=== PATIENT | male | born 1960 | race Caucasian/White ===

== ENCOUNTER 2016-12-03 13:28 | Emergency (ER) | payer OTHER ==
[~2016-12-03] VITALS: Ht 180.3 cm; Wt 90.7 kg
[~2016-12-03 13:28] MED LIST: CUTIVATE0.05% TOP; GABAPENTIN TAB600 MG PO; GABAPENTIN300 MG PO; HYDROCORTISONE120 GM; KETOROLAC10 MG PO; LIORESAL 10MG T10 MG PO; LITHIUM CARBON450 MG PO; NEURONTIN300 MG PO; NYSTOP100000 U/G TOP; PERMETHRIN5% TOP; PROAIR HFA8.5 GM INH; PROMETHAZI6.25 MG/3 PO; TRAMADOL50 MG PO; ULTRAM(MONOGRAP50 MG PO; VISTARIL50 MG PO
--- NOTE | 2016-12-03 13:58 | ED PSYCHIATRIC COMPLAINT ---
History of Present Illness General Chief Complaint: Psychiatric Related Complaint Stated Complaint: SI/XANAX/ Source: patient, old records Exam Limitations: no limitations Vital Signs & Intake/Output Vital Signs & Intake/Output Vital Signs Date Time Temp Pulse Resp B/P Pulse O2 O2 Flow FiO2 Ox Delivery Rate 12/03 1817 98.2 85 18 125/80 98 Room Air Room Air 12/03 1659 98.1 84 18 128/82 97 Room Air 12/03 1438 97.2 97 18 129/92 100 Room Air 12/03 1341 Room Air Allergies Coded Allergies: NO KNOWN ALLERGIES (01/15/16) Reconcile Medications Albuterol Sulfate (Proair Hfa) 90 MCG HFA.AER.AD 2 PUF INH Q4-6 PRN PRN SHORTNESS OF BREATH (Reported) Aripiprazole 5 MG TABLET 1 TAB PO QPM MENTAL HEALTH (Reported) Diclofenac Sodium (Voltaren) 1 % GEL..GRAM. 1 GM TOP 4 TIMES/DAY PAIN ( Reported) apply to affected area(s) Dicyclomine HCl 20 MG TABLET 1 TAB PO BID ANTIBIOTIC, INFECTION (Reported) Dicyclomine HCl 10 MG CAPSULE 0.5 TAB PO BID GI (Reported) Docusate Sodium (Stool Softener) 100 MG CAPSULE 1 CAP PO DAILY GI (Reported) Duloxetine HCl 20 MG CAPSULE.DR 1 CAP PO BID MENTAL HEALTH (Reported) Gabapentin (Neurontin) 800 MG TABLET 1 TAB PO 4 TIMES/DAY MENTAL HEALTH ( Reported) [place] Carbonate ([place] Carbonate ER) 450 MG TABLET.ER 1 TAB PO BID MENTAL HEALTH (Reported) Triage Note: 56 Y/O MALE BIBA FROM HOME FOR EVAL OF SI ATTEMPT LAST NIGHT. PT ARRIVES ALERT AND ORIENTED X 4, TEARFUL IN CONVERSATION. STATES HE CALLED THE AMBULANCE TODAY "BECAUSE I TRIED TO HURT MYSELF LAST NIGHT .. I BOUGHT XANAX AND DRANK AND DID CRACK. LAMBERTO ALSO BEEN TAKING 8000MG GABAPENTIN BECAUSE I WANT TO HURT MYSELF". PT STATES HE WAS SOBER FROM ETOH FOR 2 MONTHS AND FROM "CRACK" SINCE AUGUST BUT RELAPSED LAST NIGHT. REQUESTING HELP WITH DETOX WELL STATING "I WAS SET UP TO GO TO A SOBER HOUSE BUT I DIDNT CALL THEM BACK BECAUSE I DIDNT HAVE THE MONEY". AT PRESENT, PT CONTINUES TO ENDORSE SI. DENIES HI. CALM, COOPERATIVE AND POLITE WITH STAFF. SECURITY CALLED FOR WANDING SITTER GETTING PT SETTLED INTO ROOM PT ON PEER BY BRYANT OFFICER LOBO Triage Nurses Notes Reviewed? yes Onset: Abrupt Duration: week(s):, constant, continues in ED Timing: recent history HPI: 56-year-old male comes into the emergency room very emotional and crying. He reports that his male roommate who he is in love with moved out 3-4 weeks ago. He reports that he has been very depressed and does not want to live anymore. He is been using crack cocaine and drinking alcohol again. Patient reports that he took 15-25 Xanax over the last 24 hours that her 1 mg tablets. He also reports that he is hearing voices in the apartment. He'll get phone calls with people telling him different things. Patient is very depressed and crying in the room while talking. History of previous substance abuse. (RUTH LINARES) Past History Travel History Traveled to [place] past 21 day No Medical History Any Pertinent Medical History? see below for history Neurological: NONE EENT: NONE Cardiovascular: hypertension Respiratory: COPD Gastrointestinal: NONE Hepatic: NONE Renal: NONE Musculoskeletal: degen joint disease Psychiatric: anxiety, bipolar disease, depression, schizophrenia Endocrine: NONE Blood Disorders: NONE Cancer(s): NONE DIRECTOR MOBILE/Reproductive: NONE History of MRSA: No History of VRE: No History of CDIFF: No Surgical History Surgical History: non-contributory Psychosocial History Who do you live with Patient/Self What is your primary language Chadian Tobacco Use: Current Daily Use Daily Tobacco Use Amount/Type: => 5 Cigarettes daily Family History Hx Contributory? No (RUTH LINARES) Review of Systems Review of Systems Constitutional: Reports: no symptoms. EENTM: Reports: no symptoms. Respiratory: Reports: no symptoms. Cardiovascular: Reports: no symptoms. GI: Reports: no symptoms. Genitourinary: Reports: no symptoms. Musculoskeletal: Reports: no symptoms. Skin: Reports: no symptoms. Neurological/Psychological: Reports: see HPI. Hematologic/Endocrine: Reports: no symptoms. Immunologic/Allergic: Reports: no symptoms. All Other Systems: Reviewed and Negative (RUTH LINARES) Physical Exam Physical Exam General Appearance: well developed/nourished, alert, awake Head: atraumatic Eyes: Bilateral: normal appearance, EOMI. Ears, Nose, Throat: normal ENT inspection, hearing grossly normal Neck: normal inspection Respiratory: no respiratory distress Extremities: normal range of motion Neurological/Psychiatric: awake, depressed affect Appearance/Memory/Insight: disheveled, impaired insight Behavoir/Eye Contact/Speech: cooperative Thoughts/Hallucinations: auditory hallucinations Skin: intact, normal color, warm/dry SAD PERSONS SAD PERSONS Response Value Male Sex? yes 1 Age <19 or >45 years? yes 1 Depression/Hopelessness? yes 2 Excessive Ethanol/Drug Use? yes 1 Rational Thinking Loss? yes 2 Single//? yes 1 Social Support? has no support 1 Total 9 SAD PERSONS Done? yes (YONATAN MANSFIELD,RUTH) Progress Differential Diagnosis: dementia, drug intoxication, drug overdose, drug withdrawal, electrolyte abnormality, encephalitis, hypoglycemia, hypothyroidism, IC hem/mass/tumor, meningitis, depression, anxiety, bipolar, borderline personality, Plan of Care: Orders Procedure Date/time Status Regular Diet 12/03 D Active Continuous Observation Monitor 12/03 1458 Active ED CRISIS PSYCH CONSULT 12/03 1356 Active URINE DRUGS OF ABUSE 12/03 1331 Complete ETHANOL 12/03 1331 Complete COMPREHENSIVE METABOLIC PANEL 12/03 1331 Complete CBC WITHOUT DIFFERENTIAL 12/03 1331 Complete Laboratory Tests 12/03/16 1403: Serum Alcohol < 10.0 12/03/16 1403: Anion Gap 11, Estimated GFR > 60, BUN/Creatinine Ratio 7.5, Glucose 91, Calcium 10.0, Total Bilirubin 0.5, AST 36, ALT 38, Alkaline Phosphatase 85, Total Protein 7.5, Albumin 4.4, Globulin 3.1, Albumin/Globulin Ratio 1.4, CBC w Diff NO MAN DIFF REQ, RBC 4.94, MCV 91.1, MCH 30.3, RDW 13.2, MPV 7.9, Gran % 53.2, Lymphocytes % 33.0, Monocytes % 8.9, Eosinophils % 4.8, Basophils % 0.1, Absolute Granulocytes 4.2, Absolute Lymphocytes 2.6, Absolute Monocytes 0.7 H, Absolute Eosinophils 0.4, Absolute Basophils 0, PUBS MCHC 33.3, Urine Opiates Screen < 100.00, Methadone Screen < 40, Barbiturate Screen < 60, Ur Phencyclidine Scrn < 6.00, Amphetamines Screen < 100, U Benzodiazepines Scrn > 800 H, Urine Cocaine Screen > 1000 H, Urine Cannabis Screen < 5.00 Comments: 12/03/2016 5:37:25 PM Patient was seen and cleared by crisis to go home. Patient will be following up at a sober house crisis. (RUTH LINARES) Departure Departure Disposition: HOME OR SELF CARE Condition: Stable Clinical Impression Primary Impression: Mood disorder Referrals: KRYSTAL VALENCIA (PCP/Family) Additional Instructions: Follow-up as directed by crisis. Return if any other concerns worsening symptoms. Please go over all results of today's visit with your primary care doctor. Contact your primary care doctor to let them know you were here in the emergency room. There may be nonspecific findings which may not be related to your visit today here in the emergency room but may require further evaluation and chronic monitoring by your primary care doctor. If you had a laceration today the chance of foreign body always remains. You should follow-up with your primary care doctor for recheck in 3-5 days for a wound check. If you had an x-ray done there is a chance that a fracture could have been missed on initial read and you should follow-up with your primary care doctor for repeat x-rays if symptoms persist. If your blood pressure was elevated here in the emergency room please have rechecked by her primary care doctor within the next 48 hours by your primary care doctor. If you were prescribed a narcotic here in the emergency room or any type of controlled substances you're not allowed to drive while taking this medication or operate any type of heavy machinery. Narcotics can make you feel lightheaded dizziness nausea and can cause constipation. You may need to molded goods spot picker a stool softener. Thank you for choosing [facility] emergency room. Please return to the emergency room immediately if you have any other concerns worsening of symptoms. Departure Forms: Customer Survey General Discharge Information (RUTH LINARES) PA/BREAKER BOSS Co-Sign Statement Statement: ED Attending supervision documentation- [] I saw and evaluated the patient. I have also reviewed all the pertinent lab results and diagnostic results. I agree with the findings and the plan of care as documented in the PA's/BREAKER BOSS's documentation. x I have reviewed the ED Record and agree with the PA's/BREAKER BOSS's documentation. [] Additions or exceptions (if any) to the PAs/BREAKER BOSS's note and plan are summarized below: [] (GREYSON OLSON,ANTHONY)
[2016-12-03] MEDS ORDERED: DULOXETINE HCL20 MG PO (14:14)
[2016-12-03] MEDS ORDERED: DICYCLOMINE HCL20 M1 PO (14:14)
[2016-12-03] MEDS ORDERED: DICYCLOMINE HCL10 M1 PO (14:15)
[2016-12-03] MEDS ORDERED: LITHIUM CARBON450 M1 PO (14:16)
[2016-12-03] MEDS ORDERED: STOOL SOFTENER100 M3 PO (14:16)
[2016-12-03] MEDS ORDERED: ARIPIPRAZOLE5 M1 PO (14:17)
[2016-12-03] MEDS ORDERED: NEURONTIN800 M2 PO (14:17)
[2016-12-03] MEDS ORDERED: VOLTAREN100 GM TOP (14:18)
[2016-12-03 14:25] LABS: ABSOLUTE BASOPHIL COUNT 0 /CUMM (0.0-0.2); ABSOLUTE EOSINOPHIL COUNT 0.4 /CUMM (0.0-0.7); ABSOLUTE GRANULOCYTE CT 4.2 /CUMM (1.4-6.5); ABSOLUTE LYMPH COUNT 2.6 /CUMM (1.2-3.4); ABSOLUTE MONOCYTE COUNT 0.7 /CUMM (0.10-0.60); BASOPHIL % 0.1 % (0.0-2.0); EOSINOPHIL % 4.8 % (0-5); GRANULOCYTE % 53.2 % (42.2-75.2); MEAN CORPUSCULAR HGB 30.3 PG (27.0-31.0); MEAN CORPUSCULAR HGB CONC 33.3 G/DL (33.0-37.0); MEAN CORPUSCULAR VOLUME 91.1 FL (80.0-94.0); MEAN PLATELET VOLUME 7.9 FL (7.4-10.4); PLATELET COUNT 221 /CUMM (130-400); RBC DISTRIBUTION WIDTH 13.2 % (11.5-14.5); RED BLOOD CELL CT 4.94 /CUMM (4.70-6.10); WHITE BLOOD CELL COUNT 7.8 /CUMM (4.8-10.8)
--- NOTE | 2016-12-03 17:09 | ED PSYCH CRISIS CONSULTATION ---
Crisis Consult Basic Assessment Date of Consult: 12/03/16 Responsible Person/Accompanied By: darion Insurance Authorization: Insurance #1: Insurance name: [employer] Phone number: Policy number: [id number] Group number: Authorization number: ED Provider: Patient's ED Provider: RUTH LINARES Primary Care Physician: Patient's PCP: KRYSTAL VALENCIA PCP's Current Psychiatrist: Manoj Chief Complaint: Psychiatric Related Complaint Patient's Quote: "I was supposed to go to a sober house" Present Illness: Pt is a 56 year old male, upon evaluation pt states I was "being very selfish earlier, and got upset that I loved someone who didn't love me back", I have ahd some time to think while Im here, and instead of feeling bad for"myself, and going zuly zuly zuly poor me, I want to do something for myself, so he can see that I can still be friends" pt then explained he roommate and person he cared a great deal for just moved out because his Father and he had to manage some things with his family and was overwhelmed. Pt states this also caused him to relapse, pt states "on xanax", tox screen positive for benzos and cocaine. Pt states this just happened a day ago, pt reports he attends therapy and goes to AA meetings. Pt spoke to Luis from [facility] and he will make arrangements to get into one of his sober houses. I confirmed with Luis, and he stated he would help Hernán out and that there would be abed for him. Pt denies si/hi/ah/vh during evaluation, he said "I have hope and a place to go, so I don' t want to hurt myself", and then pt reiterated he has a lot fo sober supports and wants to be clean. Pt reports he is seen at [facility] and [facility]. Patient's Address: [address] [place] [address] [place] [address] Other Phone Number: Who Do You Live With? Patient/Self Family/Informants Interviewed: Spoke with [facility], he said they had a bed for him [phone]. They will continue to work with him until he is admitted. Allergies - Coded Allergies: NO KNOWN ALLERGIES (01/15/16) Current Medications - Scheduled Medications Aripiprazole 5 MG TABLET 1 TAB PO QPM MENTAL HEALTH #21 (Reported) Entered as Reported by SUSANNA SQUIRES on 12/03/16 1417 Diclofenac Sodium (Voltaren) 1 % GEL..GRAM. 1 GM TOP 4 TIMES/DAY PAIN #300 ( Reported) Entered as Reported by SUSANNA SQUIRES on 12/03/16 1418 Dicyclomine HCl 20 MG TABLET 1 TAB PO BID ANTIBIOTIC, INFECTION #30 (Reported ) Entered as Reported by SUSANNA SQUIRES on 12/03/16 1414 Dicyclomine HCl 10 MG CAPSULE 0.5 TAB PO BID GI #60 (Reported) Entered as Reported by SUSANNA SQUIRES on 12/03/16 1415 Docusate Sodium (Stool Softener) 100 MG CAPSULE 1 CAP PO DAILY GI (Reported) Entered as Reported by SUSANNA SQUIRES on 12/03/16 1416 Duloxetine HCl 20 MG CAPSULE.DR 1 CAP PO BID MENTAL HEALTH #60 (Reported) Entered as Reported by SUSANNA SQUIRES on 12/03/16 1414 Gabapentin (Neurontin) 800 MG TABLET 1 TAB PO 4 TIMES/DAY MENTAL HEALTH #90 ( Reported) Entered as Reported by SUSANNA SQUIRES on 12/03/16 1417 [place] Carbonate ([place] Carbonate ER) 450 MG TABLET.ER 1 TAB PO BID MENTAL HEALTH #30 (Reported) Entered as Reported by SUSANNA SQUIRES on 12/03/16 1416 Scheduled PRN Medications Albuterol Sulfate (Proair Hfa) 90 MCG HFA.AER.AD 2 PUF INH Q4-6 PRN PRN SHORTNESS OF BREATH (Reported) Entered as Reported by STEPHANIE CHAVARRIA on 06/25/15 4728 Laboratory Results: Laboratory Tests 12/03/16 1403: Serum Alcohol < 10.0 12/03/16 1403: Anion Gap 11, Estimated GFR > 60, BUN/Creatinine Ratio 7.5, Glucose 91, Calcium 10.0, Total Bilirubin 0.5, AST 36, ALT 38, Alkaline Phosphatase 85, Total Protein 7.5, Albumin 4.4, Globulin 3.1, Albumin/Globulin Ratio 1.4, CBC w Diff NO MAN DIFF REQ, RBC 4.94, MCV 91.1, MCH 30.3, RDW 13.2, MPV 7.9, Gran % 53.2, Lymphocytes % 33.0, Monocytes % 8.9, Eosinophils % 4.8, Basophils % 0.1, Absolute Granulocytes 4.2, Absolute Lymphocytes 2.6, Absolute Monocytes 0.7 H, Absolute Eosinophils 0.4, Absolute Basophils 0, PUBS MCHC 33.3, Urine Opiates Screen < 100.00, Methadone Screen < 40, Barbiturate Screen < 60, Ur Phencyclidine Scrn < 6.00, Amphetamines Screen < 100, U Benzodiazepines Scrn > 800 H, Urine Cocaine Screen > 1000 H, Urine Cannabis Screen < 5.00 Past History Past Medical History Neurological: NONE EENT: NONE Cardiovascular: hypertension Respiratory: COPD Gastrointestinal: NONE Hepatic: NONE Renal: NONE Musculoskeletal: degen joint disease Psychiatric: anxiety, bipolar disease, depression, schizophrenia Endocrine: NONE Blood Disorders: NONE Cancer(s): NONE 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 and personal [employer] Reason for Treatment mood relapse prevention Dates of Treatment 2014 and currently Response to Treatment unknown, pt reports soberity since Aug 2016 Diagnosis by History: Bipolar Disorder, Alcohol Dependence, poly-substance, schizo-affective, Bipolar with psychosis, panic disorder Substance Use/Abuse History Drug Use/Abuse Substances Used/Abused Yes Substance Used/Abused Benzodiazepines First Use unknown Last Used today How much used/taken unknown How often sober since aug For how long on and off for years Route of use oral Substance Abuse Treatment Substance Abuse Treatment Past Substance Abuse TX Yes Inpatient Treatment Yes Outpatient Treatment Yes Response to Treatment unknown Current Mental Status Mental Status Orientation: Person, Place, Situation Affect: Anxious, Manic, Variable Speech: Hyper-verbal, Loud Neuro-vegetative: Energy Increased, Sleep Disturbance Appearance Appearance- Dress/Hygiene: in hospital attire Behaviors Thought Process: WNL Thought Content: Entitled Memory: WNL Insight: Fair SI/HI Risk Assessment Past Suicidal Ideation/Attempts Yes Current Suicidal Ideation/Att No Past Homicidal Ideation/Att: No Current Homicidal Ideation/Attempts No Degree of Intent: Self Destructive/No Risk Factors: high anxiety/distress, SA/MH hospitalized, substance abuse, male Lethality Ratin PTSD Checklist PTSD Done? 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 Thomas, pt presnted denying si/hi/ah/vh. Made contact with a sober house and arrangements for intake. Pt to continue to work with outpatient providers. Referrals KRYSTAL VALENCIA (PCP/Family)
[2016-12-03 18:17] VITALS: BP 125/80
== END 2016-12-03 18:17 ==
LOC: ERH 13:28
PROVIDERS: Physician Assistant Medical
DX: F39 Unspecified mood [affective] disorder (principal); F10.10 Alcohol abuse, uncomplicated; F14.10 Cocaine abuse, uncomplicated
CPT/HCPCS: 80307; G0463; G0480

== ENCOUNTER 2016-12-05 18:45 | Inpatient (IN) | payer OTHER ==
[~2016-12-05] VITALS: Ht 175.3 cm; Wt 92.5 kg
[~2016-12-05 18:45] MED LIST changes: +ARIPIPRAZOLE5 M1 PO; +DICYCLOMINE HCL10 M1 PO; +DICYCLOMINE HCL20 M1 PO; +DULOXETINE HCL20 MG PO; +LITHIUM CARBON450 M1 PO; +NEURONTIN800 M2 PO; +STOOL SOFTENER100 M3 PO; +VOLTAREN100 GM TOP
--- NOTE | 2016-12-05 18:48 | NUR ---
PT STATES +SI, STATES HE TOOK 7000MG OF GABAPENTIN INSTEAD OF THE USUAL 2100MG WITH THE INTENT TO HURT HIMSELF. RN NOTIFIED.
--- NOTE | 2016-12-05 18:57 | NUR ---
PT STATES HE IS FEELING SUICIDAL, REPORTS THAT HE TOOK GABAPENTIN LIKE CANDY TO TRY AND KILL HIMSELF. PT STATES HE WAS SUPPOSE TO GO TO A SOBER HOUSE. PT STATES HE NEEDS DETOX FROM BENZO'S ETOH AND CRACK. PT ADMITS TO TAKING 7000MG OF GABAPENTIN [employer]
--- NOTE | 2016-12-05 19:15 | NUR ---
PT WANDED BY SECURITY AND CHANGED INTO [facility] SCRUBS. PT AGITATED AND COMPLAINING THAT HE IS IN THE [address] REPORTING, "I FEEL LIKE I'M ON DISPLAY OUT HERE LIKE I'M AN ANIMAL AT THE [employer]OO." PT INFORMED THAT HE WILL BE MOVED TO A ROOM IN JUST A FEW MINUTES WHEN A ROOM IS AVAILABLE.
--- NOTE | 2016-12-05 19:20 | ED PSYCHIATRIC COMPLAINT ---
History of Present Illness General Chief Complaint: ETOH/Drug Related Complaint Stated Complaint: REQ ETOH DETOX, PSY EVAL Source: patient Exam Limitations: no limitations Allergies Coded Allergies: NO KNOWN ALLERGIES (01/15/16) Reconcile Medications Albuterol Sulfate (Proair Hfa) 90 MCG HFA.AER.AD 2 PUF INH Q4-6 PRN PRN SHORTNESS OF BREATH (Reported) Aripiprazole 5 MG TABLET 1 TAB PO QPM MENTAL HEALTH (Reported) Diclofenac Sodium (Voltaren) 1 % GEL..GRAM. 1 GM TOP 4 TIMES/DAY PAIN ( Reported) apply to affected area(s) Dicyclomine HCl 20 MG TABLET 1 TAB PO BID ANTIBIOTIC, INFECTION (Reported) Dicyclomine HCl 10 MG CAPSULE 0.5 TAB PO BID GI (Reported) Docusate Sodium (Stool Softener) 100 MG CAPSULE 1 CAP PO DAILY GI (Reported) Duloxetine HCl 20 MG CAPSULE.DR 1 CAP PO BID MENTAL HEALTH (Reported) Fluticasone/Salmeterol (Advair 250-50 Diskus) 250 MCG-50 MCG/DOSE BLST.W.DEV 2 PUF INH BID COPD (Reported) Gabapentin (Neurontin) 800 MG TABLET 1 TAB PO 4 TIMES/DAY MENTAL HEALTH ( Reported) Vadito Carbonate (Vadito Carbonate ER) 450 MG TABLET.ER 1 TAB PO BID MENTAL HEALTH (Reported) Sodium Fluoride (Sf 5000 Plus) 1.1 % CREAM..G. 1 TOMASA PO BID TEETH (Reported) Triage Note: PT STATES HE IS FEELING SUICIDAL, REPORTS THAT HE TOOK GABAPENTIN LIKE CANDY TO TRY AND KILL HIMSELF. PT STATES HE WAS SUPPOSE TO GO TO A SOBER HOUSE. PT STATES HE NEEDS DETOX FROM BENZO'S ETOH AND CRACK. 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 yes Onset: Abrupt Duration: 1 PM Timing: single episode today Severity: severe Associated Symptoms: suicidal ideation, DEPRESSED, ANXIOUS HPI: 56-year-old male presents to the ER after overdosing on gabapentin today at 1 PM. He states he took about 7000 mg. Usually takes 2400 mg per day. His plan was to go to sleep and never wake up. He states for the past month after) left the house and that he was in his been feeling depressed and suicidal. He is having hallucinations feels alone at night and hears voices. He admits to being a previous alcoholic and states that he drinks but is not dependent on alcohol. Since his friend let his been abusing cocaine almost daily. Denies any chest pain or shortness of breath. He states that he wants to come in for detox and to get back into a sober house. He states he's never attempted to take his life in the past before. (HENNY BECKWITH MD) Vital Signs & Intake/Output Vital Signs & Intake/Output Vital Signs Date Time Temp Pulse Resp B/P Pulse O2 O2 Flow FiO2 Ox Delivery Rate 12/06 0736 98.1 67 18 126/70 99 12/06 0705 96.8 64 18 138/83 96 Room Air 12/06 0643 97.3 72 16 132/77 94 Room Air 12/06 0340 97.3 72 16 130/70 94 Room Air 12/06 0139 96.8 70 16 138/72 97 Room Air 12/05 2300 96.8 75 16 134/70 12/05 2238 94.6 75 16 134/70 97 Room Air 12/05 2218 96.9 80 20 144/76 97 Room Air 12/05 2108 Room Air 12/05 1857 97.7 94 16 130/87 97 Room Air ED Intake and Output 12/06 0000 12/05 1200 Intake Total Output Total Balance Patient 200 lb Weight Past History Travel History Traveled to [place] past 21 day No Medical History Any Pertinent Medical History? 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 No (HENNY BECKWITH MD) Review of Systems Review of Systems Constitutional: Denies: chills, fever. EENTM: Reports: no symptoms. Respiratory: Denies: cough, short of breath. Cardiovascular: Denies: chest pain, peripheral edema. GI: Reports: no symptoms. Genitourinary: Reports: no symptoms. Musculoskeletal: Reports: no symptoms. Skin: Reports: no symptoms. Neurological/Psychological: Reports: anxiety, depressed, emotional problems, tremors. Hematologic/Endocrine: Denies: bruising, bleeding, polyuria, polydipsia. Immunologic/Allergic: Reports: no symptoms. All Other Systems: Reviewed and Negative (HENNY BECKWITH MD) Physical Exam Physical Exam General Appearance: well developed/nourished, alert, awake, mild distress Head: atraumatic Eyes: Bilateral: PERRL, EOMI. Ears, Nose, Throat: normal pharynx, normal ENT inspection, hearing grossly normal Neck: normal inspection, supple Respiratory: normal breath sounds Cardiovascular: regular rate/rhythm Gastrointestinal: soft, non-tender Extremities: normal range of motion Neurological/Psychiatric: awake, alert, anxious, TEARFUL Appearance/Memory/Insight: disheveled, impaired insight Behavoir/Eye Contact/Speech: cooperative Skin: intact, normal color, warm/dry (HENNY BECKWITH MD) Physical Exam Thoughts/Hallucinations: no apparent hallucination SAD PERSONS SAD PERSONS Response Value Male Sex? yes 1 Age <19 or >45 years? yes 1 Depression/Hopelessness? yes 2 Previous Attempts/Psych Care yes 1 Excessive Ethanol/Drug Use? yes 1 Rational Thinking Loss? yes 2 Single//? yes 1 Organized/Serious Attempt yes 2 Stated Future Intent? yes 2 Total 13 SAD PERSONS Done? yes (ANTHONY RUBI MD) Progress Differential Diagnosis: SUICIDE ATTEMPT, SEVERE DEPRESSION, ANXIETY, COCAINE ABUSE Hand-Off Endorsed To: ANTHONY RUBI MD Endorsed Time: 0700 Pending: consult (CRISIS BED PLACEMENT) (HENNY BECKWITH MD) Differential Diagnosis: dementia, drug intoxication, drug overdose, drug withdrawal, electrolyte abnormality, hypoglycemia Plan of Care: Orders Procedure Date/time Status Regular Diet 12/06 B Active Continuous Observation Monitor 12/06 1900 Active Continuous Observation Monitor 12/06 1500 Active Admit to inpatient psych 12/06 1103 Active Continuous Observation Monitor 12/06 1100 Active Continuous Observation Monitor 12/06 0700 Active CIWA 12/05 2300 Active Intake & Output 12/05 2010 Active LITHIUM 12/05 1950 Complete ED CRISIS PSYCH CONSULT 12/05 1931 Active Continuous Observation Monitor 12/05 192 Active URINE DRUGS OF ABUSE 12/05 1920 Complete ACETOMINOPHEN 12/05 1920 Complete SALICYLATE 12/05 1920 Complete MAGNESIUM 12/05 1920 Complete ETHANOL 12/05 1920 Complete COMPREHENSIVE METABOLIC PANEL 12/05 1920 Complete CBC WITHOUT DIFFERENTIAL 12/05 1920 Complete EKG 12/05 1920 Active Current Medications Sig/Mo Start time Last Medication Dose Stop Time Status Admin Aripiprazole 5 MG QPM 12/06 2200 AC (Abilify) Dicyclomine HCl 10 MG BID 12/06 2200 AC (Bentyl) Diclofenac Sodium 1 TOMASA 4 TIMES/DAY 12/06 1004 AC (Voltaren 1% Gel) Albuterol Sulfate 2 PUF Q4-6 PRN PRN 12/06 1000 AC (Ventolin) Laboratory Tests 12/05/161957: Urine Opiates Screen < 100.00, Methadone Screen < 40, Barbiturate Screen < 60, Ur Phencyclidine Scrn < 6.00, Amphetamines Screen 183, U Benzodiazepines Scrn 536 H, Urine Cocaine Screen > 1000 H, Urine Cannabis Screen < 5.00 12/05/16 1950: Anion Gap 9, Estimated GFR > 60, BUN/Creatinine Ratio 10.0, Glucose 84, Calcium 9.8, Magnesium 2.0, Total Bilirubin 0.4, AST 32, ALT 37, Alkaline Phosphatase 76 , Total Protein 7.1, Albumin 4.1, Globulin 3.0, Albumin/Globulin Ratio 1.4, CBC w Diff NO MAN DIFF REQ, RBC 4.70, MCV 90.8, MCH 30.5, RDW 12.8, MPV 7.8, Gran % 56.8, Lymphocytes % 31.4, Monocytes % 7.6, Eosinophils % 3.8, Basophils % 0.4, Absolute Granulocytes 4.2, Absolute Lymphocytes 2.3, Absolute Monocytes 0.6, Absolute Eosinophils 0.3, Absolute Basophils 0, PUBS MCHC 33.5, Salicylates < 1.0, Acetaminophen < 10.0 L, [place] 0.4 L, Serum Alcohol < 10.0 12/05/161929: Vadito Cancelled PERSONAL GROWTH COUNSELLING RUDI REDDY (AMENA OLSON,HENNY) Comments: To be admitted to [facility] (GREYSON OLSON,ANTHONY) Departure Departure Disposition: STILL A PATIENT Condition: Stable Clinical Impression Primary Impression: Suicide attempt Secondary Impressions: Cocaine abuse, Gabapentin overdose Referrals: KRYSTAL VALENCIA (PCP/Family) Departure Forms: Customer Survey General Discharge Information (AMENA OLSON,HENNY) Departure Time of Disposition: 1238 Psych Admission Note Psychiatric Admission: I have seen and evaluated MAURY MARTINEZ. I have also reviewed all the pertinent lab results and diagnostic results. MAURY MARTINEZ will be admitted to our inpatient Psychiatric unit for treatment and care. (GREYSON OLSON,ANTHONY)
--- NOTE | 2016-12-05 19:36 | NUR ---
PT REPORTS HE WAS BROUGHT TO [facility] BY A FRIEND FROM . PT REPORTS +SI AND THAT HE TOOK "A LOT" OF GABAPENTIN. PT REPORTS POSSIBLY UP TO 7000MG, STARTING AT 1PM, THEN TAKING MORE AFTER HE WOKE UP FROM A NAP. PT REPORTS FEELING "WOOZY" NOW, DENIES NAUSEA, STATES HE IS HUNGRY. PT REPORTS DAILY SI THOUGHTS FOR WEEKS. PT REPORTS ONE PRIOR SUICIDE ATTEMPT VIA KLONOPIN OVERSODE OF 16MG IN ID STATE. PT REPORTS +AH AT NIGHT WHILE HOME ALONE, STATES HE "HEARS PEOPLE CALLING HIS NAME". DR BECKWITH AT BEDSIDE
--- NOTE | 2016-12-05 19:40 | NUR ---
PT REPORTS MED HX OF COPD, NECK PAIN, GROIN NERVE DAMAGE PAIN AND BIPOLAR DISORDER. PT STATES HE IS ON LITHIUM, BUT HAS NOT BEEN COMPLIANT IN THE RECENT PAST. PT STATES HE ALSO TAKES ABILIFY. PT REPORTS POOR SLEEP. PT STATES HE DRANK 1 BEER THIS PAST WEEKEND, SMOKED CRACK YESTERDAY AND TOOK BENZOS YESTERDAY.
--- NOTE | 2016-12-05 19:50 | NUR ---
EKG AND BLOOD DONE (BLUE,SST,LAV,MOJICA)
--- NOTE | 2016-12-05 20:10 | NUR ---
URINE TRIO SENT TO LAB
[2016-12-05 20:15] LABS: LITHIUM 0.4 mmol/L (0.6-1.2)
[2016-12-05 20:18] LABS: ABSOLUTE BASOPHIL COUNT 0 /CUMM (0.0-0.2); ABSOLUTE EOSINOPHIL COUNT 0.3 /CUMM (0.0-0.7); ABSOLUTE GRANULOCYTE CT 4.2 /CUMM (1.4-6.5); ABSOLUTE LYMPH COUNT 2.3 /CUMM (1.2-3.4); ABSOLUTE MONOCYTE COUNT 0.6 /CUMM (0.10-0.60); BASOPHIL % 0.4 % (0.0-2.0); EOSINOPHIL % 3.8 % (0-5); GRANULOCYTE % 56.8 % (42.2-75.2); HEMATOCRIT 42.7 % (42-52); MEAN CORPUSCULAR HGB 30.5 PG (27.0-31.0); MEAN CORPUSCULAR HGB CONC 33.5 G/DL (33.0-37.0); MEAN CORPUSCULAR VOLUME 90.8 FL (80.0-94.0); MEAN PLATELET VOLUME 7.8 FL (7.4-10.4); PLATELET COUNT 216 /CUMM (130-400); RBC DISTRIBUTION WIDTH 12.8 % (11.5-14.5); WHITE BLOOD CELL COUNT 7.4 /CUMM (4.8-10.8)
--- NOTE | 2016-12-05 20:42 | NUR ---
PT HAS 4 BELONGINGS BAGS IN CLOSET, 1 VALUABLES BAG IN ER SAFE AND 1 BAG OF MEDICATIONS AT PHARMACY.
[2016-12-05] MEDS ORDERED: ADVAIR 250-501 EACH INH (20:43)
[2016-12-05] MEDS ORDERED: SF 5000 PLUS51 GM PO (20:44)
--- NOTE | 2016-12-05 21:07 | NUR ---
PT SITTING ON BED IN ROOM 15. PT TEARFUL AND TALKING ABOUT HIS PROBLEMS WITH THIS RN. PT IS REQUESTING SOMETHING TO HELP HIM SLEEP.
--- NOTE | 2016-12-05 21:41 | NUR ---
CRISIS AT BEDSIDE
--- NOTE | 2016-12-05 22:08 | NUR ---
PT MEDICATED WITH BENADRYL 50MG PO. PT CALM AND COOPERATIVE. SITTER AT DOOR FOR SAFETY.
--- NOTE | 2016-12-05 22:19 | NUR ---
Pt has signed a voluntary admission form for admission to [facility] vs bed search whichever takes place first in the morning.
--- NOTE | 2016-12-05 22:38 | NUR ---
PT PROVIDED WITH BOXED LUNCH. PT CALM AND COOPERATIVE. SITTER AT DOORWAY FOR PASHA.
--- NOTE | 2016-12-05 22:45 | ED PSYCH CRISIS CONSULTATION ---
Crisis Consult Basic Assessment Date of Consult: 12/05/16 Responsible Person/Accompanied By: self Insurance Authorization: Insurance #1: Insurance name: F[employer]AD BL[employer] Phone number: Policy number: [id number] Group number: Authorization number: ED Provider: Patient's ED Provider: AMENA OLSON,HENNY Primary Care Physician: Patient's PCP: KRYSTAL VALENCIA PCP's Current Psychiatrist: none currently/had been seen at [facility] Chief Complaint: ETOH/Drug Related Complaint Patient's Quote: Fernanda been daily suicidal. today i overdosed on my gabapentin. Present Illness: Pt is a 56 yo male presenting at [place] ED this evening with report of suicide attempt today of intentional overdose of 7000mg of gabapentin. Pt had been seen at [place] ED this weekend for attempted overdose of xanax and crack cocaine. Pt has a hx of bipolar d/o; alcohol and cocaine abuse. Pt was admitted to [address] in [address]. Pt was previously in ut at [facility] and now is treated at [facility]. Pt reports he had 9 months sober and was doing well until friend moved out last month. Pt reports being distraught; tearful. Since friend moved out he reports daily suicidal thoughts, depression; anxiety, hearing voices, difficulty sleeping and being in fear. Pt reports being happy that he came to ED for help and "needs to begin taking care of himself". Pt wants to get stable again on medications and has been working on getting into a sober house in [place]. Pt is alert; OX3; pleasant, hyperverbal; tearful at times. He reports SI but is motivated to get help. Patient's Address: [address] [place] [address] [place] [address] Other Phone Number: Who Do You Live With? Patient/Self Family/Informants Interviewed: collateral pt brother Jorge Luis [phone] - reports being happy pt is trying to get help. Allergies - Coded Allergies: NO KNOWN ALLERGIES (01/15/16) Current Medications - Scheduled Medications Aripiprazole 5 MG TABLET 1 TAB PO QPM MENTAL HEALTH #21 (Reported) Entered as Reported by SUSANNA SQUIRES on 12/03/16 1417 Diclofenac Sodium (Voltaren) 1 % GEL..GRAM. 1 GM TOP 4 TIMES/DAY PAIN #300 ( Reported) Entered as Reported by SUSANNA SQUIRES on 12/03/161417 Last Taken: At an unknown date and time Dicyclomine HCl 20 MG TABLET 1 TAB PO BID ANTIBIOTIC, INFECTION #30 (Reported ) Entered as Reported by SUSANNA SQUIRES on 12/03/161413 Last Taken: At an unknown date and time Dicyclomine HCl 10 MG CAPSULE 0.5 TAB PO BID GI #60 (Reported) Entered as Reported by SUSANNA SQUIRES on 12/03/161414 Last Taken: At an unknown date and time Docusate Sodium (Stool Softener) 100 MG CAPSULE 1 CAP PO DAILY GI (Reported) Entered as Reported by SUSANNA SQUIRES on 12/03/161415 Last Taken: At an unknown date and time Duloxetine HCl 20 MG CAPSULE.DR 1 CAP PO BID MENTAL HEALTH #60 (Reported) Entered as Reported by SUSANNA SQUIRES on 12/03/161413 Last Taken: At an unknown date and time Fluticasone/Salmeterol (Advair 250-50 Diskus) 250 MCG-50 MCG/DOSE BLST.W.DEV 2 PUF INH BID COPD #60 (Reported) Entered as Reported by STEPHANIE CHAVARRIA on 12/05/162042 Gabapentin (Neurontin) 800 MG TABLET 1 TAB PO 4 TIMES/DAY MENTAL HEALTH #90 ( Reported) Entered as Reported by SUSANNA SQUIRES on 12/03/161416 [place] Carbonate ([place] Carbonate ER) 450 MG TABLET.ER 1 TAB PO BID MENTAL HEALTH #30 (Reported) Entered as Reported by SUSANNA SQUIRES on 12/03/16 141 Sodium Fluoride (Sf 5000 Plus) 1.1 % CREAM..G. 1 TOMASA PO BID TEETH #51 ( Reported) Entered as Reported by STEPHANIE CHAVARRIA on 12/05/162043 Scheduled PRN Medications Albuterol Sulfate (Proair Hfa) 90 MCG HFA.AER.AD 2 PUF INH Q4-6 PRN PRN SHORTNESS OF BREATH (Reported) Entered as Reported by STEPHANIE CHAVARRIA on 06/25/151757 Laboratory Results: Laboratory Tests 12/05/168: Urine Opiates Screen < 100.00, Methadone Screen < 40, Barbiturate Screen < 60, Ur Phencyclidine Scrn < 6.00, Amphetamines Screen 183, U Benzodiazepines Scrn 536 H, Urine Cocaine Screen > 1000 H, Urine Cannabis Screen < 5.00 12/05/16 1950: Anion Gap 9, Estimated GFR > 60, BUN/Creatinine Ratio 10.0, Glucose 84, Calcium 9.8, Magnesium 2.0, Total Bilirubin 0.4, AST 32, ALT 37, Alkaline Phosphatase 76 , Total Protein 7.1, Albumin 4.1, Globulin 3.0, Albumin/Globulin Ratio 1.4, CBC w Diff NO MAN DIFF REQ, RBC 4.70, MCV 90.8, MCH 30.5, RDW 12.8, MPV 7.8, Gran % 56.8, Lymphocytes % 31.4, Monocytes % 7.6, Eosinophils % 3.8, Basophils % 0.4, Absolute Granulocytes 4.2, Absolute Lymphocytes 2.3, Absolute Monocytes 0.6, Absolute Eosinophils 0.3, Absolute Basophils 0, PUBS MCHC 33.5, Salicylates < 1.0, Acetaminophen < 10.0 L, [place] 0.4 L, Serum Alcohol < 10.0 12/05/16 193: [place] Cancelled (HIEU CHOU LCSW) Past History Past Medical History Neurological: NONE EENT: NONE Cardiovascular: hypertension Respiratory: COPD Gastrointestinal: NONE Hepatic: NONE Renal: NONE Musculoskeletal: degen joint disease Psychiatric: alcohol dependence, anxiety, bipolar disease, depression, schizophrenia, COCAINE ABUSE Endocrine: NONE Blood Disorders: NONE Cancer(s): NONE 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 Physical Limitations (Interventions): Pain related to chronic back & nerve pain, degenerative disk disease Psychiatric Treatment History Psych Treatment Psychiatric Treatment Yes Inpatient Treatment Yes Outpatient Treatment Yes Location of Treatment [facility] 3x in 2014; outpt; [facility] 2016; personal [facility] Reason for Treatment hx of depression; bi-polar; drug and alcohol Response to Treatment sober for 9 months; relapsed this past weekend Diagnosis by History: Bipolar Disorder, Alcohol Dependence, poly-substance, schizo-affective, Bipolar with psychosis, panic disorder Substance Use/Abuse History Drug Use/Abuse Substances Used/Abused Yes Substance Used/Abused Crack Cocaine Last Used today How often 3x past wk Substance Abuse Treatment Substance Abuse Treatment Past Substance Abuse [place] Yes Inpatient Treatment Yes Outpatient Treatment Yes Reason for Treatment hx of etoh and crack cocaine abuse Comments: pt reports relapse of etoh and cocaine last weekend when friend moved out. (HIEU CHOU LCSW) Current Mental Status Mental Status Orientation: Person, Place, Situation Affect: Depressed, Sad Speech: Hyper-verbal Neuro-vegetative: Anhedonia, Appetite Decreased, Concentration Poor, Energy Increased, Helpless, Loss of Interest, Sleep Disturbance Appearance Appearance- Dress/Hygiene: hospital scrubs; unshaven; glassy-eyed; sitting up; good eye contact. Behaviors Thought Process: WNL Thought Content: Auditory Hallucinations Memory: WNL Insight: Fair SI/HI Risk Assessment Past Suicidal Ideation/Attempts Yes Current Suicidal Ideation/Att Yes Past Homicidal Ideation/Att: No Current Homicidal Ideation/Attempts No Degree of Intent: Thoughts/No Intent Danger To: Self Gravely Disabled: Poor Impulse Control, Poor Judgment Risk Factors: high anxiety/distress, history of suicide atmpts, SA/MH hospitalized, substance abuse, isolate/no social support, poor impulse control, lives alone, male, limited support Lethality Ratin PTSD Checklist PTSD Done? patient declined ED Management Sitter: Yes Restraints: No (HIEU CHOU LCSW) DSM5/PS Stressors/Medical Prob Diagnosis' (DSM 5, Stressors, Medical): Bipolar disorder depressive recurrent (F33.3) Cocaine Use d/o severe(F14.20) friend moved out relapse Current GAF: 25 Comments: pt reports recent relapse of cocaine and alcohol triggered by close friend moving out, pt reports increased depression; hearing voices, not sleeping; daily si; anxiety and fear. (HIEU CHOU LCSW) Departure Disposition Psych Medical Clearance Date: 12/05/16 Medically Cleared at: 2144 Time Started: 2149 Time Ended: 2229 Psychiatrist Consulted: Sav Ortiz MD Date Disposition Established: 12/05/16 Time Disposition Established: 2244 Plan for Disposition - Modality: Bed Search Rationale for Disposition: Pt reported suicide attempt on sunday and again today. attempted overdose of gabapentin. pt in need of inpatient psychiatric admission. Type of IP Admission: Voluntary Referrals KRYSTAL VALENCIA (PCP/Family) (EFFIE PARDO,HIEU) Disposition Psych Medical Clearance Date: 12/06/16 Date Disposition Established: 12/06/16 Time Disposition Established: 829 Plan for Disposition - Modality: Inpatient Psychiatry Facility: [facility] Rationale for Disposition: safety and stabilization of sx Type of IP Admission: Voluntary (FRED TITUS LCSW) Addendum Addendum Crisis re-evaluated pt this morning and he presents as tearful continues to express suicidal thoughts. Pt is being [id number] to CPS (FRED TITUS LCSW)
[2016-12-05 23:00] VITALS: BP 134/70
--- NOTE | 2016-12-06 00:45 | NUR ---
PT RESTING QUIETLY ON BED. NORMAL RR NOTED. SITTER REMAINS IN PLACE.
--- NOTE | 2016-12-06 03:40 | NUR ---
PT CONTINUES TO REST QUIETLY ON BED. SITTER REMAINS IN PLACE. EVEN RISE AND FALL OF CHEST. WILL CONTINUE TO MONIOTR.
--- NOTE | 2016-12-06 04:18 | NUR ---
PT CONTINUES TO REST ON BED. TOSSING AND TURNING NOTED. SITTER REMAINS IN PLACE. WILL CONTINUE TO MONITOR.
--- NOTE | 2016-12-06 06:39 | NUR ---
PT CONTINUES TO REST ON BED. NO APPARENT DISTRESS. NORMALL RR NOTED. SITTER REMAINS IN PLACE. WILL CONTINUE TO MONITOR.
--- NOTE | 2016-12-06 06:56 | NUR ---
PT ASKS FOR THE TIME. PT STATES "IM GRATEFUL TO BE ALIVE." PT REQUESTS WATER, WATER GIVEN TO PT.
--- NOTE | 2016-12-06 07:06 | NUR ---
PT AMBULATORY TO RESTROOM WITH EVEN AND STEADY GAIT WITH SITTER. PT STATES HE FEELS A LOT BETTER THIS MORNING THAN HE DID YESTERDAY. PT ENGAGES IN CONVERSATION. BREAKFAST TRAY GIVEN. SITTER REMAINS IN PLACE.
--- NOTE | 2016-12-06 07:24 | NUR ---
PT SITTING UP, HAVING FINGER FOOD BREAKFAST TRAY, NO COMPLAINTS AT THIS TIME.
--- NOTE | 2016-12-06 08:15 | NUR ---
CRISIS QUENTIN IN TO EVAL.
--- NOTE | 2016-12-06 08:33 | NUR ---
MED WITH NICOTINE 21MG PATCH, PT REMOVED HIS OWN PATCH "I HAD ONE ON FROM YESTERDAY". PT REMAINS CALM,COOPERATIVE, PLEASANT. NO COMPLAINTS AT THIS TIME.
--- NOTE | 2016-12-06 10:15 | NUR ---
PHARMACY CALLED FOR AM MEDS.
--- NOTE | 2016-12-06 10:37 | NUR ---
CRISIS QUENTIN IN TO EVAL AT THIS TIME.
--- NOTE | 2016-12-06 10:55 | NUR ---
AM MEDS GIVEN ORDERED, TOLERATED WELL. PT TO BE ADMITTED TO CPS PER CRISIS QUENTIN.
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
--- NOTE | 2016-12-06 14:00 | NUR ---
PT TOOK FINGER FOOD LUNCH DIET WELL. MED WITH AFTERNOON GABAPENTIN 800MG PO, TOLERATED VERY WELL.
--- NOTE | 2016-12-06 14:52 | NUR ---
REPORT CALLED TO CPS NURSE GREWAL. DISTRIBUTION CALLED FOR TRANSPORT TO CPS.
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
--- NOTE | 2016-12-06 14:59 | NUR ---
FOOD TRAY ORDERED
[2016-12-06 16:08] VITALS: BP 137/81
[2016-12-06 16:14] VITALS: BP 137/81
[2016-12-06 19:39] VITALS: BP 148/67
[2016-12-06 19:44] VITALS: BP 148/67
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
--- NOTE | 2016-12-06 22:34 | History & Physical ---
General Information and HPI MD Statement: I have seen and personally examined MAURY MARTINEZ and documented this H&P. The patient is a 56 year old M who presented with a patient stated chief complaint of [Depression, SI]. Source of Information: patient Exam Limitations: no limitations History of Present Illness: 56 yo M with h/o bipolar disorder, COPD, HTN, polysubstance (benzo, cocaine) abuse, alcohol abuse, schizophrenia, is admitted to Inpatient Psychiatry for suicidal ideation with intentional overdose of gabapentin. For details, please refer to Psych H and P. He was seen in the ER on December 03 for attempted overdose of xanax and crack cocaine. He is noncompliant with his psych meds. Reports he stopped taking lithium and hydroxyzine. He continues to smoke cigarettes and reports that his COPD is stable. He has degenerative disc disease of the cervical spine but has refused surgery in the past. He reports doing IV drugs (bristol meth, not heroin) 4 yrs ago. Currently denies chest pain, dyspnea, palpitations, lightheadedness, GI or symptoms. He does report pain in his feet - right foot bunion noted and diffuse mild swelling of his toes. He is to see a surgeon for bunion removal. Allergies/Medications Allergies: Coded Allergies: NO KNOWN ALLERGIES (01/15/16) Home Med list Albuterol Sulfate (Proair Hfa) 90 MCG HFA.AER.AD 2 PUF INH Q4-6 PRN PRN SHORTNESS OF BREATH (Reported) Aripiprazole 5 MG TABLET 1 TAB PO QPM MENTAL HEALTH (Reported) Diclofenac Sodium (Voltaren) 1 % GEL..GRAM. 1 GM TOP 4 TIMES/DAY PAIN ( Reported) apply to affected area(s) Dicyclomine HCl 20 MG TABLET 1 TAB PO BID ANTIBIOTIC, INFECTION (Reported) Dicyclomine HCl 10 MG CAPSULE 0.5 TAB PO BID GI (Reported) Docusate Sodium (Stool Softener) 100 MG CAPSULE 1 CAP PO DAILY GI (Reported) Duloxetine HCl 20 MG CAPSULE.DR 1 CAP PO BID MENTAL HEALTH (Reported) Fluticasone/Salmeterol (Advair 250-50 Diskus) 250 MCG-50 MCG/DOSE BLST.W.DEV 2 PUF INH BID COPD (Reported) Gabapentin (Neurontin) 800 MG TABLET 1 TAB PO 4 TIMES/DAY MENTAL HEALTH ( Reported) [place] Carbonate ([place] Carbonate ER) 450 MG TABLET.ER 1 TAB PO BID MENTAL HEALTH (Reported) Sodium Fluoride (Sf 5000 Plus) 1.1 % CREAM..G. 1 TOMASA PO BID TEETH (Reported) Compliance With Home Meds: POOR Past History Travel History Traveled to [place] past 21 day No Medical History Neurological: NONE EENT: NONE Cardiovascular: hypertension Respiratory: COPD Gastrointestinal: NONE Hepatic: NONE Renal: NONE Musculoskeletal: degen joint disease Psychiatric: alcohol dependence, anxiety, bipolar disease, depression, schizophrenia, COCAINE ABUSE Endocrine: NONE Blood Disorders: NONE Cancer(s): NONE SWITCHBOARD INSPECTOR/Reproductive: NONE History of MRSA: No History of VRE: No History of CDIFF: No Isolation History: Standard Surgical History Surgical History: Rectal and anal wart removal. Past Family/Social History Family History Relations & Conditions if any FATHER ( - CHF, lung cancer). MOTHER ( - Alzheimer's). Maternal grandparents (Stroke). BROTHER (Prostate cancer). Psychosocial History Where do you live? Home Who Do You Live With? self Services at Home: None Primary Language: Bulgarian Smoking Status: Current Everyday Smoker ETOH Use: alcoholic Illicit Drug Use: cocaine, benzodiazepines Functional Ability ADLs Independent: dressing, eating, toileting, bathing. Ambulation: independent IADLs Independent: transportation, medication admin. Employment History Employment Disability Review of Systems Review of Systems Constitutional: Denies: chills, fever, weakness. EENTM: Reports: no symptoms. Cardiovascular: Reports: peripheral edema (edema to the toes only). Denies: chest pain, orthopena, palpitations. Respiratory: Denies: cough, short of breath, sputum production, wheezing. GI: Reports: constipation. Denies: abdominal pain, diarrhea, nausea, vomiting. Genitourinary: Denies: dysuria, frequency, hematuria. Musculoskeletal: Reports: neck pain. Denies: back pain, joint pain, joint swelling. Skin: Reports: no symptoms. Neurological/Psychological: Reports: see HPI. All Other Systems: Reviewed and Negative Exam & Diagnostic Data Last 24 Hrs of Vital Signs/I&O Vital Signs Date Time Temp Pulse Resp B/P Pulse O2 O2 Flow FiO2 Ox Delivery Rate 12/07 1943 98.7 73 148/67 12/06 193 98.7 73 148/67 12/06 1614 98.2 72 137/81 12/06 1608 98.2 72 137/81 12/06 1425 96.7 76 18 152/80 97 Room Air 04/ 0736 98.1 67 18 126/70 99 04/05 0705 96.8 64 18 138/83 96 Room Air 04/ 0643 97.3 72 16 132/77 94 Room Air 04/ 0340 97.3 72 16 130/70 94 Room Air 04/ 0139 96.8 70 16 138/72 97 Room Air 12/05 2300 96.8 75 16 134/70 0404 2238 94.6 75 16 134/70 97 Room Air Intake & Output 12/06 1600 04 0800 12/06 0000 Intake Total Output Total Balance Patient 200 lb Weight Physical Exam General Appearance Alert, Oriented X3, Cooperative, No Acute Distress Skin No Rashes, No Significant Lesion HEENT Atraumatic, EOMI, Mucous Membr. moist/pink Neck Supple Cardiovascular Regular Rate, Normal S1, Normal S2, No Murmurs Lungs Clear to Auscultation, Normal Air Movement Abdomen Normal Bowel Sounds, Soft, No Tenderness Neurological Exam Findings: Normal Gait, Normal Speech, Strength at 5/5 X4 Ext, Cranial Nerves 3-12 NL, Reflexes 2+ Cranial Nerves II through XII: Grossly intact Extremities Bunion noted to the base of right great toe. Diffuse mild swelling noted to toes. Vascular Normal Pulses, Pulses Symmetrical Last 24 Hrs of Labs/Nguyễn: Laboratory Tests 12/05 Chemistry Sodium (137 - 145 mmol/L) 141 Potassium (3.5 - 5.1 mmol/L) 4.2 Chloride (98 - 107 mmol/L) 103 Carbon Dioxide (22 - 30 mmol/L) 29 Anion Gap (5 - 16) 9 BUN (9 - 20 mg/dL) 9 Creatinine (0.7 - 1.2 mg/dL) 0.9 Estimated GFR (>60 ml/min) > 60 BUN/Creatinine Ratio (7 - 25 %) 10.0 Glucose (65 - 99 mg/dL) 84 Calcium (8.4 - 10.2 mg/dL) 9.8 Magnesium (1.6 - 2.3 mg/dL) 2.0 Total Bilirubin (0.2 - 1.3 mg/dL) 0.4 AST (17 - 59 U/L) 32 ALT (21 - 72 U/L) 37 Alkaline Phosphatase (< 127 U/L) 76 Total Protein (6.3 - 8.2 g/dL) 7.1 Albumin (3.5 - 5.0 g/dL) 4.1 Globulin (1.9 - 4.2 gm/dL) 3.0 Albumin/Globulin Ratio (1.1 - 2.2 %) 1.4 Hematology CBC w Diff NO MAN DIFF REQ WBC (4.8 - 10.8 /CUMM) 7.4 RBC (4.70 - 6.10 /CUMM) 4.70 Hgb (14.0 - 18.0 G/DL) 14.3 Hct (42 - 52 %) 42.7 MCV (80.0 - 94.0 FL) 90.8 MCH (27.0 - 31.0 PG) 30.5 RDW (11.5 - 14.5 %) 12.8 Plt Count (130 - 400 /CUMM) 216 MPV (7.4 - 10.4 FL) 7.8 Gran % (42.2 - 75.2 %) 56.8 Lymphocytes % (20.5 - 51.1 %) 31.4 Monocytes % (1.7 - 9.3 %) 7.6 Eosinophils % (0 - 5 %) 3.8 Basophils % (0.0 - 2.0 %) 0.4 Absolute Granulocytes (1.4 - 6.5 /CUMM) 4.2 Absolute Lymphocytes (1.2 - 3.4 /CUMM) 2.3 Absolute Monocytes (0.10 - 0.60 /CUMM) 0.6 Absolute Eosinophils (0.0 - 0.7 /CUMM) 0.3 Absolute Basophils (0.0 - 0.2 /CUMM) 0 PUBS MCHC (33.0 - 37.0 G/DL) 33.5 Toxicology Salicylates (0 - 20.0 mg/dL) < 1.0 Urine Opiates Screen (>2000 NG/ML) < 100.00 Methadone Screen (>300 NG/ML) < 40 Acetaminophen (10.0 - 30.0 ug/mL) < 10.0 L Barbiturate Screen (>200 NG/ML) < 60 Ur Phencyclidine Scrn (>25 NG/ML) < 6.00 Amphetamines Screen (>1000 NG/ML) 183 U Benzodiazepines Scrn (>200 NG/ML) 536 H [place] (0.6 - 1.2 mmol/L) 0.4 L Cancelled Urine Cocaine Screen (>300 NG/ML) > 1000 H Urine Cannabis Screen (>50 NG/ML) < 5.00 Serum Alcohol (<10 MG/DL) < 10.0 Diagnostic Data EKG Results SR with nonspecific ST-T changes. CXR Results -- Assessment/Plan Assessment: 56 yo male with h/o bipolar disorder, polysubstance abuse, COPD, HTN, is admitted for suicidal ideation, intentional drug overdose and depression. 1. Management per Psych team. 2. COPD. Continue albuterol and advair (symbicort while inpatient). Smoking cessation counseling done, give nicotine patch. 3. H/o HTN, not on any meds. Will continue to monitor, if persistently elevated will consider initiating CCB or ACEI. 4. Right foot bunion. Needs outpatient surgical eval. DVT ppx - low risk, early ambulation. As Ranked By This Provider Problem List: 1. Suicide ideation 2. Depression 3. Polysubstance abuse 4. Cocaine abuse 5. Bipolar affective disorder, depressed 6. COPD (chronic obstructive pulmonary disease) Miscellaneous Miscellaneous Documentation Attending Case Discussed With: Reuben Mahoney MD Primary Care Physician: KRYSTAL VALENCIA Patient sees these Specialists -- Level of Patient Care: SHAMAR Mathis Attending Review Statement Attending Statement Attending MD Statement: examined this patient, discuss w/resident/PA/BEE ROBBER
--- NOTE | 2016-12-06 22:39 | Admission Certification ---
Admission Certification Certification Statement - As attending physician, I certify that at the time of - admission, based on clinical presentation, severity of - symptoms, need for further diagnostic testing and - therapeutic interventions, and risk of adverse outcomes - without in-hospital treatment, in my clinical assessment, - this patient requires an acute hospital stay for a minimum - of two nights or longer. I have also considered psychsocial - factors such as support system, advanced age, financial - issues, cognitive issues, and failed out-patient treatments, - past re-admission history, safety of patient, and lack of - compliance as applicable. Specific rationale supporting this admission is: Depression, bipolar disorder, SI, relapsed to cocaine and benzos.
[2016-12-07] VITALS (7 sets, daily range): BP systolic 112–148; BP diastolic 56–90
--- NOTE | 2016-12-07 06:26 | NUR ---
PT HYPOMANIC, HYPERVERBAL WHEN AWAKE, NEEDING BOUNDARY SETTING. PT GRUDGINGLY TOOK AM MEDS. PT APPEARED TO SLEEP WELL THRU THE NIGHT.
--- NOTE | 2016-12-07 12:56 | NUR ---
PT IS COMPLIANT AND COOPEARTIVE WITH UNIT RULES. PT IS OUT IN THE COMMUNITY INTERACTING WELL WITH STAFF AND PEERS. PT IS HYPOMANIC AND WILL OFTEN HAVE TO BE REMINDED TO STEP AWAY FROM DESK OR MED ROOM. PT MOOD IS STABLE WITH A BRIGHT AFFECT. PT DENIES SI THOUGHTS.
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
--- NOTE | 2016-12-07 14:58 | SOCIAL WORKER TX PLAN PSYCH ---
Treatment Plan - Please Document: - Evidence that there is ongoing collaboration between - the patient and the interdisciplinary team, - including the patient's active participation and - responsibility for engaging in the treatment regimen, - and that the treatment plan is individualized and - relevant to the patient's conditions. - Treatment plan should reflect documentation indicating - that all active therapeutic efforts are included. Strengths/Capabilities: pt seeking help; reports motivation to get into a sober house and is currently engaged in out pt tx Physical Limitations (Interventions): Pain related to chronic back & nerve pain, degenerative disk disease Patient Identified Trmt Goals: "I want to go to a sober house." Discharge Plan: sober house Problem/Goals #1 Problem #1: suicidal ideation Goal (Short Term): Today I will attend 2 groups Today I will identify 2 stressors Today I will identify 2 positive supports Today I will work on recognizing 3 emotions I am feeling Goal (Picking Table Worker): Be free of suicidal thoughts/attempts Develop 3 coping skills to deal with depression Identify 3 positive support systems to call in crisis Develop a crisis plan with 3 vasquez people Identify 2 positive traits per week about myself Identify 2 things I have to look forward to Identify 2 positive people in my life and 1 thing I appreciate about them Interventions: Learn ways to manage depressive symptoms accordingly and identify positive supports to manage life stressors and mood fluctuations. Modalities: Encourage groups, education on depression, provide CBT treatment, family meeting. Problem/Goals #2 Problem #2: polysubstance abuse Goal (Short Term): 1) Refrain from substance use 2) Identify 3 triggers for use 3) Identify 3 sober supports 4) Identify 3 coping skills Goal (Care Home): I will have family meeting on unit during my hospitalization I will attend all AA groups on unit I will Identify 3 coping skills for cravings to use I will set up aftercare for dual diagnosis program to address both mental health and substance abuse concerns Interventions: Learn ways to manage cravings to use substances accordingly and identify coping skills to prevent relapse from occurring due to anxious/depressed feelings. Modalities: Encourage groups, education on addiction, provide CBT treatment, family meeting. DSM5/PS Stressors/Medical Prob Diagnosis' (DSM 5, Stressors, Medical): Bipolar disorder depressive recurrent (F33.3) Cocaine Use d/o severe(F14.20) friend moved out relapse Current GAF: 25 Treatment Team - Responsibilities of members of the treatment team include: - Medication Management- MD or PAPER WOOD CUTTER - Medication Administration and Monitoring- Nurse - Group Therapy- Occupational Therapist - 1:1 Therapy,Disch Planning,family involvement-Substation Operator Helper Generation
--- NOTE | 2016-12-07 15:03 | SOCIAL WORKER PROG NOTE PSYCH ---
Social Work Progress Note Progress Note EBER met with patient for the first time today. Patient presents with elevated mood, denying SI at present and affect congruent with mood. Patient reports that he is interested in going to a [facility]ber [facility] called [facility] after he completes his hospitalization. Patient reports that he has had contact with Luis , the director there, previously. Patient reports that he does not feel safe returning to his apartment due to fear of relapsing. Patient states that he stayed sober for 9 months the last time he went to a sober house. Patien reports that he has been making poor decisions lately and does not feel ready to be on his own. Patient seen interacting appropriately on the unit with peers and staff and attending groups. He reports feeling safe here and is open to being here until he is able to get into a sober house.
--- NOTE | 2016-12-07 22:12 | NUR ---
PT IS STABLE, BRIGHT AND FULL RANGE OF AFFECT. ACTIVE WTIHIN THE COMMUNITY AND INTERACTING WITH PEERS/STAFF MEMBERS. HYPERVERBAL AND PRESSURED AT TIMES BUT POLITE, COMPLIANT, COOPERATIVE AND EASILY REDIRECTED. ATTENDED AA MEETING WELL WRAP UP TONIGHT. DID NOT MEET GOAL TO FOCUS ONLY ON HIMSELF BUT ACKNOWLEDGED THAT HE WAS ABLE TO DO THAT AT SOME POINTS THROUGHOUT THE DAY. VS ARE STABLE AND DENIES ANY SI/HI.
[2016-12-08] VITALS (8 sets, daily range): BP systolic 105–147; BP diastolic 71–80
[2016-12-08 08:27] LABS: LITHIUM 0.6 mmol/L (0.6-1.2)
--- NOTE | 2016-12-08 12:00 | SOCIAL WORKER PROG NOTE PSYCH ---
Social Work Progress Note Progress Note Patient continues to present hyperverbal, pressured, and tangential today although somewhat improved. He continues to express some anxious thoughts regarding his discharge plan and going to the sober house, [facility]. This insurance underwriter sales spoke to Luis, the director of [facility], today and confirmed that he has had contact with Hernán recently. He expressed concern that Hernán recently relapsed when he was suppose to come to the house last weekend. He expressed some concern if Hernán is stable enough for the house but stated that we could touch base again next week to see Hernán's improvement over the weekend. At this point in time he does not have a bed available but states that things change daily and is optomistic that something will open up next week. Patient denies SI /HI/AH/VH at present. This insurance underwriter sales is going to speak to patients sponsor, Mikel, today who is suppose to be puting security deposit down for the sober house. I will also inquire if Mikel can come in for meeting sometime early next week to discuss any concerns and discharge plan.
--- NOTE | 2016-12-08 13:06 | CP SOUTH PROGRESS NOTE PSYCH ---
Psych (Inpt) Progress Note Progress Note Progress Note: I discussed this patient's progress to date, current mental status, treatment process in the context of the treatment plan, and discharge planning with staff/ team in the daily morning inpatient team meeting. I also met with the patient myself in individual session. SUBJECTIVE: "I want to increase the lithium, because then all my talking will stop." OBJECTIVE: Current Medications Sig/Mo Start time Last Medication Dose Route Stop Time Status Admin Albuterol Sulfate 2 PUF Q4P PRN 12/06 220 AC INH Aripiprazole 5 MG QPM 12/06 2200 AC 12/07 PO 2148 Budesonide/ 2 PUF BID 12/06 1004 AC 12/08 Formoterol Fumarate INH 0811 Diclofenac Sodium 1 TOMASA Q6P PRN 12/08 1030 AC TOP Diclofenac Sodium 1 TOMASA 4 TIMES/DAY 12/06 1004 DC 12/07 TOP 1356 Dicyclomine HCl 10 MG BID 12/06 2200 AC 12/08 PO 0814 Docusate Sodium 100 MG DAILY 12/06 1000 AC 12/06 PO 1030 Duloxetine HCl 20 MG BID 12/07 1000 AC 12/08 PO 0814 Gabapentin 800 MG 4 TIMES/DAY 12/06 1005 AC 12/08 PO 0814 Hydroxyzine HCl 50 MG AT BEDTIME NEED.. 12/06 220 AC PO Manvel Carbonate 600 MG 799,12/08 UNVr PO Manvel Carbonate 450 MG BID 12/07 1000 DC 12/08 PO 0928 Nicotine 21 MG .STK-MED ONE 12/[address] [facility] 12/07 1641 Nicotine 21 MG 12/07 1230 12/08 TOP 0813 Patient Own 1 UNIT 799,12/07 AC 12/08 Medication PO 0814 Laboratory Tests 12/08 0630 Chemistry Triglycerides (<150 mg/dL) 143 Cholesterol (< 200 MG/DL) 168 LDL Cholesterol, Calc (65 - 129 mg/dL) 97 HDL Cholesterol (40 - 60 mg/dL) 43 Cholesterol/HDL Ratio (0.00 - 4.88 %) 4 Toxicology Manvel (0.6 - 1.2 mmol/L) 0.6 Vital Signs Date Time Temp Pulse Resp B/P Pulse O2 O2 Flow FiO2 Ox Delivery Rate 12/08 1206 69 144/79 12/08 0805 98.7 76 140/73 12/08 0759 98.7 76 140/73 12/08 1951 97.8 66 129/78 12/08 1951 97.8 66 129/78 12/079 72 137/56 12/07 1617 72 137 ASSESSMENT: Patient presents as pleasant, upbeat, hyperverbal. He is happy that he will be accepted to the sober house, states "I need the sober house, I'm fighting for my life." States he plans to live at the sober house, attend IOP and AA meetings. The dates he's been having positive interactions with other patients. Depression:0/10; Anxiety:0/10 (with 10 the worst.) Denies suicidal ideation, homicidal ideation, auditory hallucinations, visual hallucinations, paranoid ideation. Patient states and also believes that he will not kill himself. States that he had taken an overdose on gabapentin prior to arrival because he felt hopeless and worthless, and his self-esteem was very low. States that he does not feel that way anymore. Speech is well articulated, goal-directed, average in rate, volume and tone. Patient continues to be happily hyperverbal. The patient understands the risks/benefits/side effects of the medication and is agreeable to continue taking them. PLAN: Manvel 600 mg twice daily. Manvel level on Sunday morning. Continue with current other management as patient is improving. Continue to provide support and encouragement.
--- NOTE | 2016-12-08 14:01 | NUR ---
PT WAS VISIBLE IN THE [place]U TODAY. HIS GOAL WAS TO TALK AND PROCESS FEELINGS APPROPRIATELY. HE HAS BEEN INTERACTING WITH HIS PEERS, AND ACTIVELY PARTICIPATING IN GROUPS. IN THE MILIEU PT HAS BEEN COOPERATIVE WITH STAFF, AND FOLLOWING THE RULES OF THE UNIT. PT DENIES THOUGHTS OF HURTING SELF WHEN ASKED.
--- NOTE | 2016-12-08 21:57 | NUR ---
Pt is out in the community during change of shift irritable after a phone call at [phone], apologized right after the phone call. Pt is compliant and cooperative. Pt vital signs are stable appetite is good. Will continue to monitor the pt overnight.
--- NOTE | 2016-12-08 22:30 | NUR ---
PATIENT STILL ANXIOUS, HYPERVERBAL, BUT PLEASANT WITH STAFF AND PEERS; OCCASIONALLY RAISES VOICE; DR. ZARCO CALLED AND AN ORDER PLACED FOR ZYPREXA 5MG PO TIMES ONE, WHICH CAN BE REPEATED X1 IN AN HOUR IF INEFFECTIVE.
[2016-12-09] VITALS (8 sets, daily range): BP systolic 115–149; BP diastolic 67–87
--- NOTE | 2016-12-09 06:57 | NUR ---
UP TO BATHROOM ONCE, OTHERWISE SLEPT.
--- NOTE | 2016-12-09 14:34 | NUR ---
PT IS PLEASANT, CALM, COOPERATIVE AND ABLE TO VERBALIZE NEEDS TO STAFF AND OVERALL DEMONSTRATES A STABLE MOOD WITH FULL RANGE AFFECT, DID NOT ATTEND PLANNING MEETING HOWEVER DID ATTEND FOCUS GROUP, VITAL SIGNS STABLE, MET WITH DR. ZRACO ALREADY TODAY, + APPETITE.
--- NOTE | 2016-12-09 17:35 | CP SOUTH PROGRESS NOTE PSYCH ---
Psych (Inpt) Progress Note Progress Note Include the following elements, when applicable: Involvement in the active treatment of the patient with behavioral observations of the patient and the patient's response to the treatment. Review of the ongoing treatment process in the context of the treatment plan. Indication of how multi-disciplinary staff members are carrying out the treatment plan. Plans for future interventions and recommendations for revision of the treatment plan. Liaison with other physicians/providers. Progress Note: Chart reviewed, patient progress discussed with nursing staff. Interviewed patient this afternoon. Pleasant, cooperative, hyperverbal, expansive. Says his mood has "improved since I've been here ", says he slept well last evening. Denies perceptual disturbances, denies SI or HI. Focused on where he will go upon discharge, future oriented towards sober house. Vital signs reviewed and within normal limits. No new laboratory results today. Mental status exam adequately groomed man, appears slightly older than stated age, poor dentition. Her eye contact, no psychomotor agitation or retardation. Speech was slightly loud, mildly difficult to interrupt, copious amount, otherwise within normal was. Mood was "good ", affect was euthymic and not expansive, non-labile, congruent. Thought process was within normal limits. Thought content was within normal limits. Denies SI or HI. Denies perceptual symptoms. Cognition was grossly intact. Insight and judgment were limited to fair A/P: Remains hypomanic though in good behavioral control. Continue present management as per primary team.
--- NOTE | 2016-12-09 22:16 | NUR ---
PT IS CALM, COOPERATIVE WITH STAFF AND PEERS, AND COMPLIANT WITH UNIT RULES. PT IS OFTEN IN MILIEU, INTERACTING WELL WITH OTHERS. MOOD IS STABLE, AFFECT IS EUTHYMIC TO FULL RANGE, THOUGH APPEARS TO HAVE MOMENTS OF BRIGHTNESS. COMMUNICATION IS ORGANIZED AND APPEARS NORMAL IN ALL RESPECTS, CAN BE SLIGHTLY HYPERVERBAL, AND APPETITE IS NORMAL. PT DENIES SI AT THIS TIME.
[2016-12-10] VITALS (8 sets, daily range): BP systolic 131–145; BP diastolic 60–81
--- NOTE | 2016-12-10 05:23 | NUR ---
PT HYPOMANIC BUT WITH BETTER BOUNDARIES ON EVENINGS. PT APPEARED TO SLEEP WELL.
--- NOTE | 2016-12-10 11:03 | CP SOUTH PROGRESS NOTE PSYCH ---
Psych (Inpt) Progress Note Progress Note Include the following elements, when applicable: Involvement in the active treatment of the patient with behavioral observations of the patient and the patient's response to the treatment. Review of the ongoing treatment process in the context of the treatment plan. Indication of how multi-disciplinary staff members are carrying out the treatment plan. Plans for future interventions and recommendations for revision of the treatment plan. Liaison with other physicians/providers. Progress Note: Chart reviewed, patient progress discussed with nursing staff. Interviewed patient this am. Remains pleasant, cooperative, hyperverbal, expansive. Mood is "good", says he found himself a bed at a sober home. Denies SI/HI, future oriented. Vital signs reviewed and within normal limits. No new laboratory results today. Mental status exam adequately groomed man, appears slightly older than stated age, poor dentition. Fair eye contact, no psychomotor agitation or retardation. Speech was slightly loud, mildly difficult to interrupt, copious amount, otherwise within normal was. Mood was "good ", affect was euthymic if not mildly expansive, non-labile, congruent. Thought process was within normal limits. Thought content was within normal limits. Denies SI or HI. Denies perceptual symptoms. Cognition was grossly intact. Insight and judgment were limited to fair A/P: Remains hypomanic but in good behavioral control. Continue present management as per primary team.
--- NOTE | 2016-12-10 11:41 | NUR ---
PT IS COMPLIANT AND COOPERATIVE. MOOD IS STABLE WITH A FULL RANGE OF AFFECT. PT DENIES SI AT THIS TIME, NO COMPLAINTS OFFERED. PT TENDS TO BE HYPERVERBAL BUT IS APPROPRIATE AND EASILY REDIRECTABLE. PT IS PRESENT IN THE COMMUNITY AND INTERACTING WELL WITH PEERS AND STAFF. PT IS ATTENDING GROUPS. VITALS ARE STABLE, APPETITE IS GOOD.
--- NOTE | 2016-12-10 22:39 | NUR ---
PT IS COOPERATIVE WITH STAFF AND PEERS, AND COMPLIANT WITH UNIT RULES. PT IS OFTEN IN MILIEU, INTERACTING WELL WITH OTHERS. MOOD IS STABLE, AFFECT IS BRIGHT TO FULL RANGE, BECOMES SLIGHTLY LABILE AND TEARFUL AT TIMES, COMMUNCIATION IS ORGANIZED AND APPEARS NORMAL IN ALL RESPECTS, AND APPETITE IS NORMAL. PT DENIES SI AT THIS TIME.
[2016-12-11] VITALS (8 sets, daily range): BP systolic 132–141; BP diastolic 62–82
--- NOTE | 2016-12-11 06:13 | NUR ---
PT APPEARED TO SLEEP. PT HYPOMANIC, CHUMMING WITH OTHERS IN THE KITCHEN IN THE AM.
--- NOTE | 2016-12-11 10:13 | SOCIAL WORKER PROG NOTE PSYCH ---
Social Work Progress Note Progress Note Met with Hernán this morning. He stated there is a bed available at [facility] - he would like a SW to call Luis at [facility] ( ) to confirm that Hernán is stable to be discharged (when determined he is stable). Apparently, a SW needs to speak with Hernán's linux system administrator (Attleslie Deluna ) to confirm that Hernán is going to a sober house - so the linux system administrator can release funds for the rent - sober house. Hernán also wants a SW to call his friend, Joanie Shayemerson to confirm that Hernán is going to a sober house and it's OK to clean and lock up his apartment. Hernán stated his rent was paid for at his apartment and his [employer] will state if he pays for the sober house that Hernán will not have money for food. Hernán stated he knows this and will get food from food pantry and soup ashish in [place]. Hernán seemed to have organized thoughts, he denied SI/HI, no psychosis. He did exhibit pressured speech, smiling - social with peers. He stated "I am better now that I am on my medications." He stated a trigger to his relapse was "being alone." He cited when his roommate moved out that was when he relapsed. Hernán stated he is open to treatment in [place] - near [facility] - and Luis of [facility] will know location of closest treatment (/). Hernán is also interested in Medical and dental near the sober house in [facility].
--- NOTE | 2016-12-11 11:33 | CP SOUTH PROGRESS NOTE PSYCH ---
Psych (Inpt) Progress Note Progress Note Include the following elements, when applicable: Involvement in the active treatment of the patient with behavioral observations of the patient and the patient's response to the treatment. Review of the ongoing treatment process in the context of the treatment plan. Indication of how multi-disciplinary staff members are carrying out the treatment plan. Plans for future interventions and recommendations for revision of the treatment plan. Liaison with other physicians/providers. Progress Note: [I discussed this patient's progress to date, current mental status, treatment process in the context of the treatment plan, and discharge planning with staff/ team in the daily morning inpatient team meeting. I also met with the patient myself in individual session.] S: "The Marquette, Gabapentin, and Abilify are so right together!" O: Current Medications Sig/Mo Start time Last Medication Dose Route Stop Time Status Admin Acetaminophen 650 MG Q6P PRN 12/10 1999 AC 12/09 PO 2016 Albuterol Sulfate 2 PUF Q4P PRN 12/06 2199 AC INH Aripiprazole 10 MG QPM 12/11 2199 UNVr PO Aripiprazole 5 MG QPM 12/06 2200 DC 12/10 PO 2138 Budesonide/ 2 PUF BID 12/06 1004 AC 12/11 Formoterol Fumarate INH 0743 Diclofenac Sodium 1 TOMASA Q6P PRN 12/08 1030 AC 12/10 TOP 2138 Dicyclomine HCl 10 MG BID 12/06 2200 AC 12/09 PO 0808 Docusate Sodium 100 MG DAILY 12/06 1000 AC 12/06 PO 1030 Gabapentin 800 MG 4 TIMES/DAY 12/06 1005 AC 12/11 PO 0742 Hydroxyzine HCl 50 MG AT BEDTIME NEED.. 12/06 220 AC 12/08 PO 2137 Marquette Carbonate 600 MG 799,12/08 AC 12/11 PO 0742 Nicotine 2 MG Q2P PRN 12/10 1999 AC 12/11 PO 1018 Nicotine 21 MG 0812/07 1230 AC 12/11 TOP 0743 Patient Own 1 UNIT 799,12/07 AC 12/11 Medication PO 0746 Vital Signs Date Time Temp Pulse Resp B/P Pulse O2 O2 Flow FiO2 Ox Delivery Rate 12/11 758 96.5 69 132/82 12/11 756 96.5 69 132/82 12/10 2013 98.8 82 137/81 12/10 2008 98.8 82 137/81 12/10 1638 78 138/77 12/10 1610 78 138/77 12/10 1232 77 145/74 12/10 1202 77 145/74 Laboratory Tests 12/11 0536 Toxicology Marquette (0.6 - 1.2 mmol/L) 0.8 A: Chart, progress notes, labs, VS, and medication list were reviewed. Vital signs are within normal limits. Marquette level this morning was therapeutic at 0.8 mmol /L. Reviewed patient's progress to date with nursing staff, who noted the patient to be hyperverbal on unit, however redirectable with staff prompts. Today was the first time I met with the patient on [facility] (covering for Leandro Bowens APRN). He remains moderately hyperverbal however was redirectable with prompts and answered my questions appropriately when asked. Affect appeared mildly expansive, non-labile. Mood remained "good." Eye contact was appropriate. Thought process was organized. Thought content was appropriate. Cognition was grossly intact. He denied feeling hopeless, helpless, worthless, or guilty. He denied acute symptoms of anxiety or depression. He denied auditory and visual hallucinations. There was no evidence of paranoia or adam delusions. He denied passive and active suicidal ideation, plans and intent. He denied homicidal ideation, plans and intent. He shared about his paranoid thoughts prior to arrival to ED. He reported last endorsing PI in ED of people following him and being out to get him. He reported improved "focus/concentration" since starting Marquette. He remains pleased with current prescribed medications and denied untoward medication effects. He reported having positive visits from the hospital fur remodeler over the weekend. Reported sleep was "so so" d/t mild racing thoughts. He could not elaborate on content. He reported his appetite was good. Offered patient trial of Zyprexa (and discontinuation of Abilify) to further target mood stabilization/racing thoughts. Reviewed the risk/benefit/se profiles of Zyprexa with patient, who verbalized understanding of med education but refused trial. Patient expressed his preference was to remain on Abilify as he has not experienced SE on it. Patient was agreeable to increasing Abilify from 5 to 10mg QPM for mood stabilization/racing thoughts. P: 1. Continue monitoring patient on unit for safety, mood and thought process. 2. Increase Abilify from 5mg to 10mg QPM for mood stabilization. 3. Encourage participation in milieu groups. 4. Dispo planning per primary team.
--- NOTE | 2016-12-11 13:49 | NUR ---
PT VISIBLE IN THE MILIEU TODAY. HE MADE THE GOAL TO WORK ON FEELING POSIITVE. PT HAS BEEN INTERACTING WITH PEERS AND STAFF ALIKE, AND ACTIVELY PARTICIPATING IN GROUPS. PT IS CALM AND PLEASANT WITH STAFF, DENIES THOUGHTS OF HURTING SELF WHEN ASKED.
--- NOTE | 2016-12-11 20:50 | NUR ---
PT HAS BEEN TRYING TO BE MORE POSITIVE. IS WORRIED AND ANXIOUS ABOUT HIS PAST ROOMMATES WHEREABOUTS. PT ASKED STAFF TO CHECK OTHER HOSPITAL RECORDS FOR HIS FRIEND. TALKED TO STAFF ABOUT HIS FRIENDS DRINKING BEHAVIORS, WAS ENCOURAGED TO STAY PRESENT AND WORRY ABOUT HIS TREATMENT GOALS. PT IS HOPEFUL FOR DC SOON.
[2016-12-12] VITALS (8 sets, daily range): BP systolic 127–148; BP diastolic 70–79
--- NOTE | 2016-12-12 04:11 | NUR ---
Slept fl. well no c/o this AM
--- NOTE | 2016-12-12 10:12 | CP SOUTH PROGRESS NOTE PSYCH ---
Psych (Inpt) Progress Note Progress Note Include the following elements, when applicable: Involvement in the active treatment of the patient with behavioral observations of the patient and the patient's response to the treatment. Review of the ongoing treatment process in the context of the treatment plan. Indication of how multi-disciplinary staff members are carrying out the treatment plan. Plans for future interventions and recommendations for revision of the treatment plan. Liaison with other physicians/providers. Progress Note: [I discussed this patient's progress to date, current mental status, treatment process in the context of the treatment plan, and discharge planning with staff/ team in the daily morning inpatient team meeting. I also met with the patient myself in individual session.] S: "I feel good." O: Current Medications Sig/Mo Start time Last Medication Dose Route Stop Time Status Admin Acetaminophen 650 MG Q6P PRN 12/10 1999 AC 12/09 PO 2016 Albuterol Sulfate 2 PUF Q4P PRN 12/06 2200 AC INH Aripiprazole 10 MG QPM 12/11 2200 AC 12/11 PO 2118 Aripiprazole 5 MG QPM 12/06 2200 DC 12/10 PO 2138 Budesonide/ 2 PUF BID 12/06 1004 AC 12/12 Formoterol Fumarate INH 0937 Diclofenac Sodium 1 TOMASA Q6P PRN 12/08 1030 AC 12/10 TOP 2138 Dicyclomine HCl 10 MG BID 12/06 2200 AC 12/11 PO 2118 Docusate Sodium 100 MG DAILY 12/06 1000 AC 12/06 PO 1030 Gabapentin 800 MG 4 TIMES/DAY 12/06 1005 AC 12/12 PO 0746 Hydroxyzine HCl 50 MG AT BEDTIME NEED.. 12/06 2200 AC 12/08 PO 2137 Boron Carbonate 600 MG 799,12/08 AC 12/12 PO 0746 Nicotine 2 MG Q2P PRN 12/10 1999 AC 12/12 PO 0910 Nicotine 21 MG 0800 12/07 1230 AC 12/12 TOP 0745 Patient Own 1 UNIT 799,12/07 AC 12/12 Medication PO 0746 Vital Signs Date Time Temp Pulse Resp B/P Pulse O2 O2 Flow FiO2 Ox Delivery Rate 12/12 0750 97.5 66 127/74 12/12 0743 97.5 66 127/74 12/12 1999 98.4 72 141/81 12/11 1945 98.4 72 141/81 12/11 1606 78 136/62 12/11 1554 78 136/62 12/11 1235 80 135/75 12/11 1214 80 135/75 A: Chart, progress notes, labs, VS, and medication list were reviewed. Vital signs within normal limits. No new lab results today. Met with patient 1:1 this morning. He presented pleasant and calm. Mood appeared euthymic, non-labile. Affect was euthymic. Speech was more regulated in rate, tone and volume. Eye contact was appropriate. Thought process was organized, linear. Thought content was appropriate. Cognition was grossly intact. He denied feeling hopeless, helpless, worthless, guilty. Reported 0/10 anxiety (10 being the worst). He reported intermittent sadness in the context of not being able to reach a friend by phone and expressed concern for this friend. He reported as a result he had a bout of frustration after using the phone which required redirection from nursing staff. He appropriately became tearful while discussing this and was able to cope with emotions and process feelings. He denied passive and active suicidal ideation, plans and intent. He denied homicidal ideation, auditory and visual hallucinations. 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 When questioned further about this, and his sudden change in plan, to return to his home versus going to sober house; patient reported change was related to underlying fear and uncertainty about sober house environment. Patient was agreeable to discuss this further with Leena Brand LCSW. Patient also discussed interest in attending [facility] in [place], but was willing to pursue [facility] if he still plans to pursue sober house. Patient reported tolerating all medication well and denied untoward medication effects. He reported improved sleep since increase in Abilify to 10mg QHS. He reported stable appetite. Patient is agreeable to continue taking medications as prescribed. P: 1. Continue monitoring patient on unit for safety, mood and suicidal ideation. 2. Continue current medications. 3. Dispo planning per primary team. 4. Likely discharge tomorrow.
--- NOTE | 2016-12-12 12:10 | SOCIAL WORKER PROG NOTE PSYCH ---
Social Work Progress Note Progress Note Patient continues to present less hypomanic today with clearer thoughts, less pressured speech and less racing thoughts. Patient does report anxiety over his aftercare plan. Patient stated that he has been unable to get in touch with his financial conservator, Laser Operator Mikie. Patient needs Laser Operator Mikie to transfer $300 to the [employer], for his admission fee. I left a voicemail for Laser Operator Mikie explaining the situation and that patient tentatively will be discharging the hospital tomorrow but can not without this money being transferred. Patient denies SI at present and appears eager to discharge the hospital. As a back up plan, patient has secured an intake at [facility] in [place], [place] for tomorrow afternoon and has an appointment with his therapist, Anjel WALTER, at [facility]. Patient reports ongoing desire for sobriety and plan to follow up with treatment and AA meetings on the outside.
--- NOTE | 2016-12-12 14:07 | NUR ---
PT VISIBLE IN THE MILIEU TODAY. HIS GOAL WAS TO KEEP SPIRTS UP. HE HAS BEEN GOING TO GROUPS, AND INTERACTING WITH PEERS POSITVELY. HE HAS BEEN COOPERATING WITH STAFF DIRECTION, AND DENIES THOUGHTS OF HURTING SELF.
--- NOTE | 2016-12-12 21:39 | NUR ---
PT IS BRIGHT, FULL RANGE, AND STABLE. ANTICIPATING DC TOMORROW AND LOOKING FORWARD TO UTILIZING THE "POSITIVE COPING SKILLS I NOW HAVE IN THE REAL WORLD". PT IS SOCIALIZING WITH OTHERS AND ATTENDING ALL GROUPS. DURING WRAP UP PT THANKED THE STAFF AND [facility] FOR HELPING HIM DURING THIS TOUGH TIME. PLANS ON GOING TO IOP AFTER DC. VS ARE STABLE AND DENIES ANY SI.HI TO THIS MHW.
--- NOTE | 2016-12-13 06:11 | NUR ---
PATIENT SLEPT AROUND 1/2 OF THE NIGHT, AWAKE SEVERAL TIMES.
[2016-12-13 07:41] VITALS: BP 117/73
[2016-12-13 07:59] VITALS: BP 117/73
[2016-12-13] MEDS ORDERED: BENTYL10 M1 PO (08:44)
[2016-12-13] MEDS ORDERED: NEURONTIN800 M2 PO (08:55)
[2016-12-13] MEDS ORDERED: ABILIFY10 M1 PO (08:56)
[2016-12-13] MEDS ORDERED: LITHIUM CARBON300 M4 PO (08:58)
[2016-12-13] MEDS ORDERED: NICOTINE PATCH1 EAC3 TOP (08:59)
--- NOTE | 2016-12-13 09:02 | SOCIAL WORKER PROG NOTE PSYCH ---
Social Work Progress Note Progress Note Patient to discharge the hospital today. Patient denies SI/HI/AH/VH at present and appears ready to discharge. Patient has been unable to get in touch with his financial conservator and [facility]. Patient has decided to return to his home and follow up with IOP at [facility] and has an intake today at 2PM. Patient plans to also continue in individual therapy at [facility] and attend AA meetings and bahai. Patient is able to contract for safety today and denies any plans or desire to use substances at this time.
--- NOTE | 2016-12-13 10:20 | CP SOUTH PROGRESS NOTE PSYCH ---
Psych (Inpt) Progress Note Progress Note Include the following elements, when applicable: Involvement in the active treatment of the patient with behavioral observations of the patient and the patient's response to the treatment. Review of the ongoing treatment process in the context of the treatment plan. Indication of how multi-disciplinary staff members are carrying out the treatment plan. Plans for future interventions and recommendations for revision of the treatment plan. Liaison with other physicians/providers. Progress Note: [I discussed this patient's progress to date, current mental status, treatment process in the context of the treatment plan, and discharge planning with staff/ team in the daily morning inpatient team meeting. I also met with the patient myself in individual session.] S: "I'm sleeping great, I feel better." O: Current Medications Sig/Mo Start time Last Medication Dose Route Stop Time Status Admin Acetaminophen 650 MG Q6P PRN 12/10 1999 AC 12/09 PO 2016 Albuterol Sulfate 2 PUF Q4P PRN 12/06 220 AC INH Aripiprazole 10 MG QPM 12/11 2200 AC 12/12 PO 2137 Budesonide/ 2 PUF BID 12/06 1004 AC 12/12 Formoterol Fumarate INH 0937 Diclofenac Sodium 1 TOMASA Q6P PRN 12/08 1030 AC 12/10 TOP 2138 Dicyclomine HCl 10 MG BID 12/06 2200 AC 12/12 PO 2137 Docusate Sodium 100 MG DAILY 12/06 1000 AC 12/06 PO 1030 Gabapentin 800 MG 4 TIMES/DAY 12/06 1005 AC 12/13 PO 0750 Hydroxyzine HCl 50 MG AT BEDTIME NEED.. 12/06 220 AC 12/08 PO 2137 Snook Carbonate 600 MG 799,12/08 AC 12/13 PO 0750 Nicotine 2 MG Q2P PRN 12/10 1999 AC 12/13 PO 0811 Nicotine 21 MG 0812/07 1230 AC 12/13 TOP 0750 Patient Own 1 UNIT 799,12/07 Medication PO 0750 Vital Signs Date Time Temp Pulse Resp B/P Pulse O2 O2 Flow FiO2 Ox Delivery Rate 12/13 758 97.9 71 117/73 12/13 0741 97.9 71 117/73 12/12 2012 79 141/79 12/12 2005 99.2 79 141/79 12/12 1601 72 148/70 12/12 1556 72 148/70 12/12 1231 67 140/73 12/12 1214 67 140/73 A: Chart, progress notes, labs, VS, and medication list were reviewed. Vital signs within normal limits. No new lab results today. Met with patient today on the date of discharge. He presented alert and oriented to person, place, time and situation. He was calm, pleasant and cooperative; he easily engaged in conversation. Speech was normal in rate, tone and volume. Eye contact was appropriate. Mood was euthymic. Affect was full-range, non-labile. He denied feeling hopeless, helpless, worthless, and guilty. He reported 0/10 depression (10 being the worst) and anxiety of 4/10 (10 being the worst). He denied passive and active suicidal ideation, plans and intent. He denied homicidal ideation. He stated and also believed he will not harm himself or others. He identified protective factors of "my friend/sponsor" and "AA." He expressed motivation to resume daily AA meetings and reconnect with his AA sponsor for support in sobriety. He denied urges or cravings to use substances. He reported his sleep and appetite were good. He expressed motivation to follow-up with [facility] for intake today. He denied auditory and visual hallucinations. There was no evidence of paranoia or adam delusions. Thought process was linear and goal- directed. Thought content was appropriate. He denied racing thoughts. Cognition was grossly intact. He reported tolerating all medications well and denied untoward medication effects. He reported feeling safe and ready for discharge. P: 1. Discharge to home today. 2. F/u at [facility] for intake, today, 12/13/16 at 2PM. Patient verbalized understanding of appointment. 3. F[facility]u with individual therapist [facility] on 12/21/16 at 3PM. Patient verbalized understanding of appointment. 4. F/u with occupational therapy technician Dr. Johnathan Campos on 12/25/16 at 2:15PM for bunion (right foot) management. Patient verbalized understanding of appointment. 5. All discharge prescriptions were e-prescribed to [facility] in [place], [place] per patient request. Patient verbalized understanding to pick-up prescriptions today. 6. Patient strongly advised to abstain from all substances. He was advised to participate in daily AA/NA meetings and to reconnect with his AA sponsor for support in sobriety. 7. In the event of an emergency, call 911/go to nearest emergency department. Patient verbalized understanding of instruction.
--- NOTE | 2016-12-13 10:23 | DISCHARGE SUMMARY REPORT-PSYCH ---
Visit Information Visit Dates/Diagnosis' Admission Date: 12/06/16 Discharge Date: 12/13/16 Reason for Admission: Patient presented to [place] ED on 12/06/16 with a reported suicide attempt by intentional overdose of 7000 mg of gabapentin. Patient was also intoxicated on benzodiazepines and cocaine. Psy Discharge Primary Diag: Bipolar disorder Psy Discharge Secondary Diag: PTSD; Alcohol use disorder; Cocaine use disorder; History of methamphetamine use disorder; Bunion to right foot; COPD; HTN; Degenerative disc disease of the cervical spine. Hospital Course Significant Lab Findings: Lab [place] 0.4 mmol/L L 12/05/16 1950 [place] 0.6 mmol/L 12/08/16 0630 [place] 0.8 mmol/L 12/11/16 0536 U Benzodiazepines Scrn 536 NG/ML H 12/05/161957 Urine Cocaine Screen > 1000 NG/ML H 12/05/16195712/05/16 EKG: Sinus rhythm, rate of 74. NC:140; QRSD: 80; QT: 356: QTc: 395; P: 67 ; QRS: 40; T: 25. Normal EKG confirmed by [employer] conservation laborer Dr. Mazin Griffith. Course Complications: None. Consultations: The patient was seen for admission history and physical by Dr. Jun Mahoney. During this evaluation the patient was noted to have a bunion on his right foot. Dr. Mahoney recommended patient be given an outpatient surgical referral post- discharge to address condition. Please see MD note for additional information. Allergies: Coded Allergies: NO KNOWN ALLERGIES (01/15/16) Hospital Course/TX Response: The patient was monitored on the unit for safety, mood, psychosis, and suicidal ideation. He participated in multimodal treatments on the unit. [place] carbonate was increased from 450mg twice daily to 600mg twice daily for mood stabilization resulting in a therapeutic level of 0.8mmol/L. Gabapentin 800mg four times daily was continued for anxiety/neuropathic pain. Duloxetine 20mg twice daily was discontinued. Abilify 5mg nightly was increased to 10mg nightly for clear thoughts and mood stabilization. Patient tolerated all medications well and denied untoward medication effects. During the hospital course, the patient's mood and affect improved. Paranoid ideation and suicidal ideation remitted. A family meeting was not held during the hospital course, as the patient was unable to identify available family or friends to involve in his inpatient care. He appeared motivated for dual diagnosis treatment; he was in favor of participating in IOP level of care at [facility] in [place] and to also resume individual therapy with SABA Miller at [facility]. Post-discharge appointments were scheduled for the patient. On the date of discharge, 12/13/16, the patient presented alert and oriented to person, place, time and situation. He was calm, pleasant and cooperative; he easily engaged in conversation. Speech was normal in rate, tone and volume. Eye contact was appropriate. Mood was euthymic. Affect was full-range, non-labile. He denied feeling hopeless, helpless, worthless, and guilty. He reported 0/10 depression (10 being the worst) and anxiety of 4/10 (10 being the worst). He denied passive and active suicidal ideation, plans and intent. He denied homicidal ideation. He stated and also believed he will not harm himself or others. He identified protective factors of "my friend/sponsor" and "AA." He expressed motivation to resume daily AA meetings and reconnect with his AA sponsor for support in sobriety. He denied urges or cravings to use substances. He reported his sleep and appetite were good. He expressed motivation to follow-up with [facility] for intake today. He denied auditory and visual hallucinations. There was no evidence of paranoia or adam delusions. Thought process was linear and goal- directed. Thought content was appropriate. He denied racing thoughts. Cognition was grossly intact. He reported tolerating all medications well and denied untoward medication effects. He reported feeling safe and ready for discharge. Discharge HBIPS - Tobacco Use Treatment Offered Post DC Medications Offered: Script Given-See Med List Post DC Tobacco Treatment Plan: Refused Tobcco Tx Pgm - EtOH/Drug Use D/O Treatment Offered Post DC Medications Offered: Ref Med EtOH/Drug Use D/O Post DC EtOH/SubAbuse TX Plan: Other SubAbuse/Dual Pgm Program Appt Date: 12/13/16 Program Appt Time: 1400 Metabolic Screening - Screen if on a Neuroleptic Medication - Metabolic screening should include: - Blood Pressure, BMI, Glucose or Hgb A1c, & a - Lipid profile from within the past 365 days. Metabolic Screening () Not Applicable, patient not on a neuroleptic. OR ([X]) Patient on a neuroleptic(s) . Enter below results for Glucose or Hemoglobin A1C, and lipid panel if obtained during the last 365 days. BMI: 30.100 Blood Pressure: 117/73 Laboratory Results (If applicable): Lab Cholesterol 168 MG/DL 12/08/16 0630 Cholesterol/HDL Ratio 4 % 12/08/16 0630 Glucose 84 mg/dL 12/05/16 1950 HDL Cholesterol 43 mg/dL 12/08/16 0630 LDL Cholesterol, Calc 97 mg/dL 12/08/16 0630 Triglycerides 143 mg/dL 12/08/16 0630 Discharge Instructions General Discharge Information Discharge Medications: Discharge Medications- (Dose, route, freq, indication): START taking these NEW Home Medications: Dicyclomine Dose: ORAL, TWICE DAILY for GI Qty: 28 Transmit to Hydrochloride 10 Milligram Take 1 capsule by mouth Refills: 0 Pharm 1 (Bentyl) 10 MG twice daily. CAPSULE Nicotine (Nicotine Dose: On the skin, DAILY @8 AM Qty: 14 Transmit to Patch) 21 MG/24 HOUR 21 Milligram for tobacco cessation Refills: 0 Pharm 1 PATCH.TD24 Apply 1 patch topically to upper arm every morning and remove before bedtime. Gabapentin Dose: ORAL, 4 TIMES A DAY for Qty: 56 Transmit to (Neurontin) 800 MG 1 Tablet pain/anxiety Refills: 0 Pharm 1 TABLET Take 1 tablet (800mg) by mouth four times a day. Aripiprazole Dose: ORAL, Every night for Qty: 14 Transmit to (Abilify) 10 MG 10 Milligram mood stability/clear Refills: 0 Pharm 1 TABLET thoughts Take 1 tablet (10mg) by mouth at bedtime. [place] Carbonate Dose: ORAL, 0800,1999 for MOOD Qty: 56 Transmit to (Ster[place] Carbonate) 600 Milligram STABILITY Refills: 0 Pharm 1 300 MG CAPSULE Take 2 caps (600mg) by mouth every morning and every night. CONTINUE taking these Home Medications: Albuterol Sulfate Dose: Inhale through mouth, (Proair Hfa) 90 MCG 2 Puff EVERY 4-6 HOURS HFA.AER.AD NEEDED as needed for SHORTNESS OF BREATH Docusate Sodium (Stool Dose: ORAL, DAILY for GI Softener) 100 MG CAPSULE 1 Capsule Diclofenac Sodium Dose: On the skin, 4 TIMES A (Voltaren) 1 % 1 Gram DAY for PAIN GEL..GRAM. apply to affected area(s) Fluticasone/Salmeterol Dose: Inhale through mouth, (Advair 250-50 Diskus) 2 Puff TWICE DAILY for COPD 250 MCG-50 MCG/DOSE BLST.W.DEV Sodium Fluoride (Sf 5000 Dose: ORAL, TWICE DAILY for Plus) 1.1 % CREAM..G. 1 Application TEETH STOP taking these DISCONTINUED Home Medications: Duloxetine HCl (Duloxetine Dose: ORAL, TWICE DAILY for MENTAL HCl) 20 MG CAPSULE. 1 Capsule HEALTH Reason Stopped: Per Doctor Decision 1: [facility] #[id number], [address] [place] [address] Your Preferred Pharmacy [id number] [address] [place] [address] Multiple Neuroleptics: ([X]) Not Applicable OR Document below three failed attempts at monotherapy, or a plan to taper to monotherapy, or augmentation of Clozapine. () Patient's Diet: Regular. Patient's Activity: No restrictions. DC Disposition: Patient to return to home in [place], [place]. Recommendations: The patient was advised to please take his medications as prescribed. He was advised to abstain from all substances. He was advised to resume participation in daily AA meetings and to reconnect with his AA sponsor for support in sobriety. He was also advised to attend all scheduled outpatient mental health and podiatry appointments. He was advised that in the event of an emergency to call 911/go to nearest emergency department. The patient verbalized understanding of all instructions and of all outpatient appointment dates/times. Referred To: Provider Referral Service Date: 12/13/16 Referred To: [[facility]] Notes: [facility] [address], [place] Intake today, 12/13/16, 2PM Provider Referral Service Date: 12/21/16 Referred To: [[facility]] [[facility]] Notes: Individual appointment on 12/21/16 @3pm Provider Referral Service Date: 12/25/16 Referred To: Rachael Cortez Dpm [address] [id number] Notes: [address] [place] [address] [phone] *Appointment scheduled with optical worker Dr. Rachael Campos on 12/25/16 at 2:15PM. Copies To: RACHAEL CORTEZ DPM; [facility]; [facility]
--- NOTE | 2016-12-13 11:34 | NUR ---
PT IS SCHEDULED TO BE DISCHARGE AROUND 11:30AM AND IS PRESENT ON THE UNIT AND SOCIAL WITH PEERS AND STAFF AND APPROPRIATE, NO ISSUES OR CONCERNS REPORTED OR OBSERVED, MOOD STABLE WITH FULL RANGE AFFECT. WHEN ASKED DIRECTLY DENIES SI/HI/HALLUCINATIONS. INFORMATION PACKET RE: SI, BIPOLAR AND SUBSTANCE ABUSE GIVEN TO PT. W-10 AND PT RESOURCE GUIDE REVIEWED AND DENIES QUESTIONS. HAS + UNDERSTANDING OF MEDICATION REGIMENT AND ALSO MOTIVATED FOR FOLLOW-UP DISCHARGE PLAN. REPORTS OVERALL IMPROVEMENT IN MOOD/BEHAVIOR/SLEEP/APPETITIE AND VOICED TO STAFF HOW GREATLY HE IS FOR THE ASSISTANCE HE RECEIVED DURING HIS INPT STAY.
== END 2016-12-13 11:35 | DRG 753 ==
LOC: ENRESERVDT → ENRESERVTM → ERH 18:45 → ERHI 12-06 11:03 → ENPENDDIS 12-06 11:03 → CP SOUTH 12-06 11:03 → EDBEDREQ 12-06 11:13 → CP SOUTH 12-06 15:55
PROVIDERS: Emergency Medicine; Nurse Practitioner Psychiatric/Mental Health; ADMIT Psychiatry & Neurology Psychiatry
DX: F31.9 Bipolar disorder, unspecified (principal); F43.10 Post-traumatic stress disorder, unspecified; F10.10 Alcohol abuse, uncomplicated; F14.90 Cocaine use, unspecified, uncomplicated; M21.611 Bunion of right foot; J44.9 Chronic obstructive pulmonary disease, unspecified; I10 Essential (primary) hypertension; M50.30 Other cervical disc degeneration, unspecified cervical region
CPT/HCPCS: 36415; 80307; 93005; 93010; G0463; G0480; J0401; J3490

== ENCOUNTER 2017-10-23 20:10 | Inpatient (IN) | payer OTHER ==
[~2017-10-23] VITALS: Ht 180.3 cm; Wt 91.0 kg
[~2017-10-23 20:10] MED LIST changes: +ABILIFY10 M1 PO; +ADVAIR 250-501 EACH INH; +BENTYL10 M1 PO; +LITHIUM CARBON300 M4 PO; +NICOTINE PATCH1 EAC3 TOP; +SF 5000 PLUS51 GM PO
[2017-10-23 20:46] LABS: ABSOLUTE BASOPHIL COUNT 0 /CUMM (0.0-0.2); ABSOLUTE EOSINOPHIL COUNT 0.2 /CUMM (0.0-0.7); ABSOLUTE GRANULOCYTE CT 5.8 /CUMM (1.4-6.5); ABSOLUTE LYMPH COUNT 2.5 /CUMM (1.2-3.4); ABSOLUTE MONOCYTE COUNT 0.6 /CUMM (0.10-0.60); BASOPHIL % 0 % (0.0-2.0); GRANULOCYTE % 63.8 % (42.2-75.2); HEMATOCRIT 44.2 % (42-52); MEAN CORPUSCULAR HGB 30.1 PG (27.0-31.0); MEAN CORPUSCULAR HGB CONC 32.8 G/DL (33.0-37.0); MEAN CORPUSCULAR VOLUME 91.7 FL (80.0-94.0); MEAN PLATELET VOLUME 7.6 FL (7.4-10.4); PLATELET COUNT 291 /CUMM (130-400); RBC DISTRIBUTION WIDTH 13.4 % (11.5-14.5); RED BLOOD CELL CT 4.82 /CUMM (4.70-6.10)
--- NOTE | 2017-10-23 21:06 | ED PSYCHIATRIC COMPLAINT ---
History of Present Illness General Chief Complaint: Psychiatric Related Complaint Stated Complaint: PT WAS DOING HARM TO HIMSELF SPOKE TO CRISIS Source: patient, old records Exam Limitations: no limitations Vital Signs & Intake/Output Vital Signs & Intake/Output Vital Signs Date Time Temp Pulse Resp B/P B/P Pulse O2 O2 Flow FiO2 Mean Ox Delivery Rate 10/24 0630 97.1 66 20 115/71 98 Room Air 10/23 2249 67 16 143/91 94 Room Air 10/23 2028 97.5 84 22 143/79 98 ED Intake and Output 10/24 0000 10/23 1200 Intake Total 0 Output Total Balance 0 Intake, Oral 0 Allergies Coded Allergies: NO KNOWN ALLERGIES (01/15/16) Reconcile Medications Albuterol Sulfate (Proair Hfa) 90 MCG HFA.AER.AD 2 PUF INH Q4-6 PRN PRN SHORTNESS OF BREATH (Reported) Aripiprazole (Abilify) 10 MG TABLET 10 MG PO QPM mood stability/clear thoughts Take 1 tablet (10mg) by mouth at bedtime. Diclofenac Sodium (Voltaren) 1 % GEL..GRAM. 1 GM TOP 4 TIMES/DAY PAIN ( Reported) apply to affected area(s) Dicyclomine Hydrochloride (Bentyl) 10 MG CAPSULE 10 MG PO BID GI Take 1 capsule by mouth twice daily. Docusate Sodium (Stool Softener) 100 MG CAPSULE 1 CAP PO DAILY GI (Reported) Fluticasone/Salmeterol (Advair 250-50 Diskus) 250 MCG-50 MCG/DOSE BLST.W.DEV 2 PUF INH BID COPD (Reported) Gabapentin (Neurontin) 800 MG TABLET 1 TAB PO FOUR TIMES A DAY pain/anxiety Take 1 tablet (800mg) by mouth four times a day. [place] Carbonate 300 MG CAPSULE 600 MG PO 0800,2000 MOOD STABILITY Take 2 caps (600mg) by mouth every morning and every night. Nicotine (Nicotine Patch) 21 MG/24 HOUR PATCH.TD24 21 MG TOP 0800 tobacco cessation Apply 1 patch topically to upper arm every morning and remove before bedtime. Sodium Fluoride (Sf 5000 Plus) 1.1 % CREAM..G. 1 TOMASA PO BID TEETH (Reported) Triage Note: PER PT NOT DOING WELL TOOK MY WHOLE BOTTLE OF GABENTIN ALL OF THEM, DOING IT OVER COUPLE OF DAYS ALSO USING CRACK. Triage Nurses Notes Reviewed? yes Onset: Abrupt Duration: day(s): (2), constant Timing: recent history Severity: moderate Severity Numbers: 8 Associated Symptoms: anxiety, insomnia, suicidal ideation HPI: Pt has a hx of bipolar d/o; alcohol and cocaine abuse, previous suicide attemps presents sent in after being with the crisis team over the phone. The patient states in the past 48 hours he's taken a half of a bottle of 400 milligram Neurontin tablets in an attempt to harm himself. The patient states he has been hearing voices which he states is God telling him that "he is going to take care of me" the patient also reports to snorting crack cocaine this evening. No chest pain no shortness of breath he denies taking any other drugs alcohol or medications he is not prescribed anything otherwise. When questioned if the patient was attempting to harm himself this evening he states, he was taking the Neurontin to help him sleep but that"I don't care if something were to happen to me" (Danilo Mcleod) Past History Travel History Traveled to [place] past 21 day No Medical History Any Pertinent Medical History? see below for history Neurological: NONE EENT: NONE Cardiovascular: hypertension Respiratory: COPD Gastrointestinal: NONE Hepatic: NONE Renal: NONE Musculoskeletal: degen joint disease Psychiatric: alcohol dependence, anxiety, bipolar disease, depression, schizophrenia, COCAINE ABUSE Endocrine: NONE Blood Disorders: NONE Cancer(s): NONE RECONCILIATION MANAGER/Reproductive: NONE History of MRSA: No History of VRE: No History of CDIFF: No Surgical History Surgical History: Rectal and anal wart removal. Psychosocial History Who do you live with Patient/Self Services at Home None What is your primary language Monegasque Tobacco Use: Current Daily Use Daily Tobacco Use Amount/Type: => 5 Cigarettes daily Family History Family History, If Any: FATHER ( - CHF, lung cancer). MOTHER ( - Alzheimer's). Maternal grandparents (Stroke). BROTHER (Prostate cancer). Hx Contributory? No (Danilo Mcleod) Review of Systems Review of Systems Constitutional: Reports: see HPI. Comments Review of systems: See HPI, All other systems negative. Constitutional, no chills no fever, HEENT: no sore throat no congestio Cardiovascular: No chest pain Skin: no rashes, no change in skin Respiratory: No dyspnea no cough no sputum GI: No nausea no vomiting, no diarrhea, no bloating/constipation : No dysuria No hematuria, no frequency Muscle skeletal: No joint pain, no back pain, no neck pain, Neurologic: , no headache Psych: stress depression,. Heme/endocrine: No bruising (Danilo Mcleod) Physical Exam Physical Exam General Appearance: well developed/nourished, alert, awake, anxious Neurological/Psychiatric: awake, agitated, anxious Comments: Well-developed well-nourished person in no acute distress HEENT: Normal EENT exam; PERRL, EOMI. HEAD is atraumatic. moist mucous membranes. Neck: Supple, normal range of motion Back: Full range of motion Cardiovascular: Regular rate and rhythms no murmur Respiratory: No respiratory distress. Patient speaking in full complete sentences. Breath sounds clear to auscultation bilaterally: NO W/R/R Abdomen: Soft, nontender Extremity: No edema, full range of motion of extremities Neuro: Alert oriented x3, motor sensory normal,. There were no obvious focal neurologic abnormalities. Skin: No appreciable rash on exposed skin, skin is warm and dry. Psych: Mood and affect is normal, memory and judgment is normal. SAD PERSONS SAD PERSONS Response Value Male Sex? yes 1 Age <19 or >45 years? yes 1 Depression/Hopelessness? yes 2 Previous Attempts/Psych Care yes 1 Excessive Ethanol/Drug Use? yes 1 Rational Thinking Loss? yes 2 Single//? yes 1 Organized/Serious Attempt yes 2 Stated Future Intent? yes 2 Total 13 SAD PERSONS Done? yes (Danilo Mcleod) Progress Differential Diagnosis: drug intoxication, drug overdose, drug withdrawal, electrolyte abnormality, hypoglycemia Plan of Care: Orders Procedure Date/time Status Heart Healthy Diet 10/24 B Active Admit to inpatient psych 10/24 0852 Active Admit to inpatient psych 10/24 0844 Active Add-on Test (ER Only) 10/23 2321 Active ED CRISIS PSYCH CONSULT 10/236 Active EKG 10/23 2118 Active ACETOMINOPHEN 10/23 2029 Complete SALICYLATE 10/23 2029 Complete Continuous Observation Monitor 10/23 2015 Active URINE DRUG SCREEN FOR ER ONLY 10/23 2015 Complete ETHANOL 10/23 2015 Complete COMPREHENSIVE METABOLIC PANEL 10/23 2015 Complete CBC WITHOUT DIFFERENTIAL 10/23 2015 Complete Current Medications Sig/Mo Start time Last Medication Dose Stop Time Status Admin [place] Carbonate 300 MG 0800,1400,2000 21 1400 [facility] ([place] Carbonate) Aripiprazole 5 MG DAILY 10/24 1000 UNVr (Abilify) Budesonide/ 2 PUF BID 10/24 1000 UNVr Formoterol Fumarate (Symbicort) Dicyclomine HCl 20 MG BID 10/24 1000 UNVr (Bentyl) Albuterol Sulfate 2 PUF Q4 PRN 10/24 0845 UNVr (Ventolin) Gabapentin 600 MG .[Q0800, 1600, 2200] 10/24 0845 UNVr (Neurontin) Nicotine 2 MG Q2P PRN 10/24 0845 UNVr (Nicotine) Lorazepam 1 MG ONCE ONE 10/23 2129 CAN (Ativan) 10/23 2130 Laboratory Tests 10/23/172045: Urine Opiates Screen < 100.00, Methadone Screen < 40, Barbiturate Screen < 60, Ur Phencyclidine Scrn < 6.00, Amphetamines Screen 215, U Benzodiazepines Scrn < 85, Urine Cocaine Screen > 1000 H, Urine Cannabis Screen < 5.00 10/23/17 2030: Anion Gap 11, Estimated GFR > 60, BUN/Creatinine Ratio 18.8, Glucose 125 H, Calcium 9.6, Total Bilirubin 0.4, AST 22, ALT 29, Alkaline Phosphatase 93, Total Protein 7.2, Albumin 4.4, Globulin 2.8, Albumin/Globulin Ratio 1.6, CBC w Diff NO MAN DIFF REQ, RBC 4.82, MCV 91.7, MCH 30.1, MCHC 32.8 L, RDW 13.4, MPV 7.6, Gran % 63.8, Lymphocytes % 27.6, Monocytes % 6.6, Eosinophils % 2.0, Basophils % 0, Absolute Granulocytes 5.8, Absolute Lymphocytes 2.5, Absolute Monocytes 0.6, Absolute Eosinophils 0.2, Absolute Basophils 0, Salicylates < 1.0, Acetaminophen < 10.0 L, Serum Alcohol < 10.0 Labs ordered crisis consult ordered. Patient making with Ativan 2 IM Haldol 5 and Benadryl 50 IM as patient is becoming aggressive with staff I spoke with poison control who agrees with plan advise close monitoring and neuro checks Case discussed with and signed out to Dr. Reina at 1 AM pending crisis consult in a.m. Initial ED EKG: normal intervals, normal p-waves, normal QRS complex, normal sinus rhythm Hand-Off Endorsed To: Sav Reina MD Endorsed Time: 0100 Pending: consult (CRISIS) (Danilo Mcleod) Departure Departure Disposition: STILL A PATIENT Condition: Stable Clinical Impression Primary Impression: Cocaine abuse Secondary Impressions: Suicide attempt Referrals: Lamont Lozada (PCP/Family) Departure Forms: Customer Survey General Discharge Information (Danilo Mcleod) Departure Comments 10/24/17, 7:00am... pt signed out to dr. flanagan. PA/LEAD DRIVER Co-Sign Statement Statement: ED Attending supervision documentation- [] I saw and evaluated the patient. I have also reviewed all the pertinent lab results and diagnostic results. I agree with the findings and the plan of care as documented in the PA's/LEAD DRIVER's documentation. [x] I have reviewed the ED Record and agree with the PA's/LEAD DRIVER's documentation. [] Additions or exceptions (if any) to the PAs/LEAD DRIVER's note and plan are summarized below: [] (Latosha OLSON,Sav Barrera) Psych Admission Note Psychiatric Admission: I have seen and evaluated MAURY MARTINEZ. I have also reviewed all the pertinent lab results and diagnostic results. MAURY MARTINEZ will be admitted to our inpatient Psychiatric unit for treatment and care. (Kristie OLSON,Robni Casas)
--- NOTE | 2017-10-24 08:41 | ED PSYCH CRISIS CONSULTATION ---
Crisis Consult Basic Assessment Date of Consult: 10/24/17 Responsible Person/Accompanied By: self/biba Insurance Authorization: Insurance #1: Insurance name: F[employer]AD [employer] Phone number: Policy number: [id number] Group number: Authorization number: ED Provider: Patient's ED Provider: Danilo Mcleod Primary Care Physician: Patient's PCP: Lamont Lozada PCP's Current Psychiatrist: Yumiko Banegas APRN [phone] Chief Complaint: Psychiatric Related Complaint Patient's Quote: I'm just not wanting to live" Present Illness: Pt is a 57 yo male presenting to [facility] ED last evening with depression and SI. Pt reports taking all his neurotonin in an attempt to go to sleep and not wake up. Pt has a prior hx of inpatient admission at [facility] for depression, suicide attempt and polysubstance abuse with last admission December 2016. Pt reports no inpatient admissions since. Pt reports outpatient tx with Yumiko Banegas APRN but she recently left the clinic and he hasn't been assigned a new provider. He reports not taking medications past month. Pt reports crack cocaine use yesterday and smoking whenever he has enough money. Pt also reports a period of sobriety but has been drinking a few beers now and then. Pt reports having made a referral to [facility] in [place] and he was instructed to get stable on medications before he could be accepted. Pt reports being lonely and "just not wanting to live". Pt presents as depressed, tearful, lethargic and OX3. Pt received at his request IM ativan, haldol and benadryl in ED last evening. He reports he hadn't slept in 3 days. Pt reports AH, denies VH and HI. Case reviewed with Dr Elizondo with pt meeting criteria for inpatient psychiatric admission. Pt agrees with plan and has signed voluntary admission forms. Patient's Address: [address] [place] [address] [place] [address] Other Phone Number: Who Do You Live With? Patient/Self Family/Informants Interviewed: Pt lists person to notify as brother Jorge Luis . He requests we not contact him at this time. Allergies - Coded Allergies: NO KNOWN ALLERGIES (01/15/16) Current Medications - Scheduled Medications Aripiprazole (Abilify) 10 MG TABLET 10 MG PO QPM mood stability/clear thoughts #14 MG Prescribed by Bre Rosales APRN on 12/13/16 Fluticasone/Salmeterol (Advair 250-50 Diskus) 250 MCG-50 MCG/DOSE BLST.W.DEV 2 PUF INH BID COPD #60 (Reported) Entered as Reported by Ana Kaufman on 12/05/162042 Gabapentin (Neurontin) 800 MG TABLET 1 TAB PO FOUR TIMES A DAY pain/anxiety # 56 TAB Prescribed by Bre Rosales APRN on 12/13/16 [place] Carbonate 300 MG CAPSULE 600 MG PO 0800,2000 MOOD STABILITY #56 CAP Prescribed by Bre Rosales APRN on 12/13/16 Laboratory Results: Laboratory Tests 10/23/172045: Urine Opiates Screen < 100.00, Methadone Screen < 40, Barbiturate Screen < 60, Ur Phencyclidine Scrn < 6.00, Amphetamines Screen 215, U Benzodiazepines Scrn < 85, Urine Cocaine Screen > 1000 H, Urine Cannabis Screen < 5.00 10/23/17 2030: Anion Gap 11, Estimated GFR > 60, BUN/Creatinine Ratio 18.8, Glucose 125 H, Calcium 9.6, Total Bilirubin 0.4, AST 22, ALT 29, Alkaline Phosphatase 93, Total Protein 7.2, Albumin 4.4, Globulin 2.8, Albumin/Globulin Ratio 1.6, CBC w Diff NO MAN DIFF REQ, RBC 4.82, MCV 91.7, MCH 30.1, MCHC 32.8 L, RDW 13.4, MPV 7.6, Gran % 63.8, Lymphocytes % 27.6, Monocytes % 6.6, Eosinophils % 2.0, Basophils % 0, Absolute Granulocytes 5.8, Absolute Lymphocytes 2.5, Absolute Monocytes 0.6, Absolute Eosinophils 0.2, Absolute Basophils 0, Salicylates < 1.0, Acetaminophen < 10.0 L, Serum Alcohol < 10.0 Past History Past Medical History Neurological: NONE EENT: NONE Cardiovascular: hypertension Respiratory: COPD Gastrointestinal: NONE Hepatic: NONE Renal: NONE Musculoskeletal: degen joint disease Psychiatric: alcohol dependence, anxiety, bipolar disease, depression, schizophrenia, COCAINE ABUSE Endocrine: NONE Blood Disorders: NONE Cancer(s): NONE 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 Psychosocial History Strengths/Capabilities: pt seeking help; reports motivation to get into a sober house Physical Limitations (Interventions): Pain related to chronic back & nerve pain, degenerative disk disease Psychiatric Treatment History Psych Treatment Psychiatric Treatment Yes Inpatient Treatment Yes Outpatient Treatment Yes Location of Treatment [facility]; [facility] Reason for Treatment Bipolar/SI Dates of Treatment last CPS admission 12/18 Response to Treatment pt cycles between compliance and SI/crack cocaine use Diagnosis by History: Bipolar Disorder, Alcohol Dependence, poly-substance, schizo-affective, Bipolar with psychosis, panic disorder Substance Use/Abuse History Drug Use/Abuse Substances Used/Abused Yes Substance Used/Abused Crack Cocaine Last Used yesterday How often whenever he can. Often doesn't have the money to buy. Substance Abuse Treatment Substance Abuse Treatment Past Substance Abuse [place] Yes Inpatient Treatment Yes Outpatient Treatment Yes Reason for Treatment etoh cocaine Response to Treatment recent etoh sobriety but has been drinking beer again. BAL is negative Comments: pt reports crack cocaine use and some etoh (couple beers Current Mental Status Mental Status Orientation: Person, Place, Situation Affect: Depressed Speech: WNL Neuro-vegetative: Anhedonia, Concentration Poor, Energy Decreased, Helpless, Loss of Interest, Sleep Disturbance Appearance Appearance- Dress/Hygiene: hospital scrubs, disheveled; lethargic Behaviors Thought Process: WNL Thought Content: WNL Memory: WNL Insight: Fair SI/HI Risk Assessment Past Suicidal Ideation/Attempts Yes Current Suicidal Ideation/Att Yes Past Homicidal Ideation/Att: No Current Homicidal Ideation/Attempts No Degree of Intent: States Intent Danger To: Self Gravely Disabled: Poor Impulse Control, Poor Judgment Risk Factors: chronic/serious med cond., high anxiety/distress, history of suicide atmpts, SA/MH hospitalized, substance abuse, poor impulse control, lack of outcome concern, lives alone, male, limited support Lethality Ratin PTSD Checklist PTSD Done? patient declined ED Management Sitter: Yes Restraints: No DSM5/PS Stressors/Medical Prob Diagnosis' (DSM 5, Stressors, Medical): Bipolar d/o F31.4 Cocaine use d/o 14.20 lonely/isolative Current GAF: 20 Comments: pt reports he is lonely as has no one. Pt not taking medications past month. Pt reports SI and hopeless/helpless. Departure Disposition Psych Medical Clearance Date: 10/24/17 Medically Cleared at: 0800 Time Started: 0800 Time Ended: 844 Psychiatrist Consulted: Michelet Elizondo MD Date Disposition Established: 10/24/17 Time Disposition Established: 844 Plan for Disposition - Modality: Inpatient Psychiatry Facility: [facility] Rationale for Disposition: Medication assessment and mood stabilization Type of IP Admission: Voluntary Referrals Lamont Lozada (PCP/Family)
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
[2017-10-24 11:30] VITALS: BP 144/77
[2017-10-24 12:19] VITALS: BP 14/70
[2017-10-24 12:28] VITALS: BP 141/70
--- NOTE | 2017-10-24 13:07 | History & Physical ---
General Information and HPI MD Statement: I have seen and personally examined MAURY MARTINEZ and documented this H&P. The patient is a 57 year old M who presented with a patient stated chief complaint of "I'm just not wanting to "]. Source of Information: patient, family Exam Limitations: no limitations History of Present Illness: 57-year-old white male with history of bipolar disorder alcohol and cocaine use previous suicide attempts comes to the ER after talking on the phone with the crisis stating his hearing voices. He states, "not doing well took a whole bottle of gabapentin over 2 days and also using crack if he feels lonely depressed not sleeping for 2 or 3 days due to all these reasons is admitted for evaluation and treatment. Allergies/Medications Allergies: Coded Allergies: NO KNOWN ALLERGIES (01/15/16) Home Med list Aripiprazole (Abilify) 10 MG TABLET 10 MG PO QPM mood stability/clear thoughts Take 1 tablet (10mg) by mouth at bedtime. Fluticasone/Salmeterol (Advair 250-50 Diskus) 250 MCG-50 MCG/DOSE BLST.W.DEV 2 PUF INH BID COPD (Reported) Gabapentin (Neurontin) 800 MG TABLET 1 TAB PO FOUR TIMES A DAY pain/anxiety Take 1 tablet (800mg) by mouth four times a day. [place] Carbonate 300 MG CAPSULE 600 MG PO 0800,2000 MOOD STABILITY Take 2 caps (600mg) by mouth every morning and every night. 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 Past Family/Social History Family History Relations & Conditions if any FATHER ( - CHF, lung cancer). MOTHER ( - Alzheimer's). Maternal grandparents (Stroke). BROTHER (Prostate cancer). Psychosocial History Where do you live? Home Who Do You Live With? self Services at Home: None Primary Language: Maldivian Functional Ability ADLs Independent: dressing, eating, toileting, bathing. Ambulation: independent IADLs Independent: transportation, medication admin. Review of Systems Review of Systems Constitutional: Reports: see HPI. Exam & Diagnostic Data Last 24 Hrs of Vital Signs/I&O Vital Signs Date Time Temp Pulse Resp B/P B/P Pulse O2 O2 Flow FiO2 Mean Ox Delivery Rate 10/24 1228 73 141/70 10/24 1219 73 14/70 10/24 1130 97.0 72 144/77 10/24 1018 98.2 88 18 122/84 98 Room Air 10/24 0630 97.1 66 20 115/71 98 Room Air 10/23 2249 67 16 143/91 94 Room Air 10/23 2029 97.5 84 22 143/79 98 Intake & Output 10/24 1600 10/24 0800 10/24 0000 Intake Total 0 Output Total Balance 0 Intake, Oral 0 Patient 201 lb Weight Physical Exam General Appearance Alert, Oriented X3, Cooperative, No Acute Distress Skin No Rashes HEENT PERRLA, EOMI Neck Supple, No JVD, No thryomegaly Lymphatic Axillary nl, Cervical nl Cardiovascular Regular Rate, No Murmurs Lungs Clear to Auscultation, Normal Air Movement Abdomen Soft, No Tenderness, No Hepatospenomegaly Neurological Exam Findings: Normal Gait, Normal Speech, Strength at 5/5 X4 Ext, Normal Tone, Sensation Intact, Cranial Nerves 3-12 NL, Reflexes 2+ Cranial Nerves II through XII: Intact Extremities No Cyanosis, No Edema, Normal Pulses, No Tenderness/Swelling Vascular Normal Pulses, Pulses Symmetrical Last 24 Hrs of Labs/Nguyễn: Laboratory Tests 10/23/172045: Urine Opiates Screen < 100.00, Methadone Screen < 40, Barbiturate Screen < 60, Ur Phencyclidine Scrn < 6.00, Amphetamines Screen 215, U Benzodiazepines Scrn < 85, Urine Cocaine Screen > 1000 H, Urine Cannabis Screen < 5.00 10/23/17 2030: Anion Gap 11, Estimated GFR > 60, BUN/Creatinine Ratio 18.8, Glucose 125 H, Calcium 9.6, Total Bilirubin 0.4, AST 22, ALT 29, Alkaline Phosphatase 93, Total Protein 7.2, Albumin 4.4, Globulin 2.8, Albumin/Globulin Ratio 1.6, CBC w Diff NO MAN DIFF REQ, RBC 4.82, MCV 91.7, MCH 30.1, MCHC 32.8 L, RDW 13.4, MPV 7.6, Gran % 63.8, Lymphocytes % 27.6, Monocytes % 6.6, Eosinophils % 2.0, Basophils % 0, Absolute Granulocytes 5.8, Absolute Lymphocytes 2.5, Absolute Monocytes 0.6, Absolute Eosinophils 0.2, Absolute Basophils 0, Salicylates < 1.0, Acetaminophen < 10.0 L, Serum Alcohol < 10.0 Diagnostic Data ITS Data Unobtainable at this time Assessment/Plan As Ranked By This Provider Problem List: 1. Cocaine abuse 2. Gabapentin overdose 3. Suicide attempt 4. Mood disorder 5. Bipolar affective disorder, depressed Miscellaneous Miscellaneous Documentation Attending Case Discussed With: Michelet Elizondo MD Primary Care Physician: Lamont Lozada Patient sees these Specialists Psychiatry Level of Patient Care: SHAMAR Mathis Consults Needed: Consulting Specialty: Psychiatry Consulting Physician: Reason for Consult: suicidal intentions depression and bipolar disorder cocaine use
--- NOTE | 2017-10-24 14:15 | SOCIAL WORKER PROG NOTE PSYCH ---
Social Work Progress Note Progress Note Crisis recieved call from Hernán yesterday 10/23/17 stating he wanted to come to the ED but if he called 911 [facility] would bring him to [facility] because he lives in [place]. Pt had pressured speech, was tangential and reported he hadn't been sleeping well. He stated he is having psychosis but was rapidly changing the subject so he did not disclose specifics about the psychosis. Pt stated he wanted to have someone bring him to [place] [facility] but had no ride. He did not directly answer the question if he felt safe or suicidal, only stating he was hearing voices. Crisis called [facility] and requested a wellness check. [facility] said they would send someone out to complete wellness check.
[2017-10-24 15:47] VITALS: BP 126/63
[2017-10-24 19:51] VITALS: BP 153/79
[2017-10-25 07:36] VITALS: BP 132/76
[2017-10-25 12:15] VITALS: BP 146/79
--- NOTE | 2017-10-25 12:44 | CPS PROVIDER INIT ASMT PSYCH ---
Psychiatric Admission Last Turner's Note Reviewed: Yes Patient Seen and Examined: Yes Identifying Information: a 57 yo male presenting to [facility] last evening with depression and SI. Chief Complaint: "I just don't want to live" Reaction to Hospitalization: voluntarily History of Present Illness Onset of Illness: Pt reports taking all his neurotonin in an attempt to go to sleep and not wake up. Pt has a prior hx of inpatient admission at [facility] for depression, suicide attempt and polysubstance abuse with last admission December 2016. Pt reports no inpatient admissions since. Pt reports outpatient tx with Yumiko Banegas [facility] but she recently left the clinic and he hasn't been assigned a new provider. He reports not taking medications past month. Pt reports crack cocaine use yesterday and smoking whenever he has enough money. Pt also reports a period of sobriety but has been drinking a few beers now and then. Pt reports having made a referral to [facility] in [place] and he was instructed to get stable on medications before he could be accepted. Pt reports being lonely and "just not wanting to live". Circumstances Leading to Admission: see above Problem(s) Justifying Need for Admission: thoughts of suicide Past Psychiatric History Past Diagnosis(es)- if any: Bipolar d/o F31.4 Cocaine use d/o 14.20 Past Precipitating Factors- if any: Homelessness - Include inpatient and outpatient treatment Treatment History: [facility] 2016 CPS : discharge March 2015, May 2015, June 2015. [facility] for 45 days twice, and [facility] for drug rehabilitation. Patient has a therapist, Anjel De Anda in [place]. Treatment at [facility] discontinued this past October, when patient stopped participating. History of Suicide Attempts or Gestures the record indicated that there were suicide attempts but no details given Substance Abuse History: History of alcohol and cocaine use disorders Allergies: Coded Allergies: NO KNOWN ALLERGIES (01/15/16) Home Med List: The patient has not been very compliant with medications, he reportedly was supposed to be on Abilify lithium and gabapentin he reported that he takes the gabapentin for chronic neuropathy not for psychiatric reasons - Include any medical condition(s) that may - impact the patient's recovery/remission Past Medical History: The patient reported chronic neuropathic pain affecting his groin Past History Medical History Neurological: NONE EENT: NONE Cardiovascular: hypertension Respiratory: COPD Gastrointestinal: NONE Hepatic: NONE Renal: NONE Musculoskeletal: degen joint disease Psychiatric: alcohol dependence, anxiety, bipolar disease, depression, schizophrenia, COCAINE ABUSE Endocrine: NONE Blood Disorders: NONE Cancer(s): NONE GRINDER/Reproductive: NONE History of MRSA: No History of VRE: No History of CDIFF: No Isolation History: Standard Surgical History Surgical History: PERIRECTAL ANAL WARTS REMOVED Psychiatric Family/Social Hx Family History Psychiatric Illness: Father, mother, and siblings with depression and substance abuse. No formal diagnoses. Substance Use: Father, mother, and siblings with depression and substance abuse. No formal diagnoses. Suicides: Denied suicides among his family members Social History Living Situation: Homeless Significant Relationships (family/friends): Minimal, Patient has siblings and family in [place], however states he is not close with any of them. Education: Did some college but did not graduate Vocation/Occupation: Chronically unemployed Legal: Denied legal entanglements Healthly Behaviors Screening Tobacco Screening Tobacco Use from ED Docu: Current Daily Use Daily Tobacco Use Amount/Type: => 5 Cigarettes daily - If tobacco counseling indicated - the following topics are required. - #1 Recognizing dangerous situations. - #2 Coping Skills. - #3 Basic information about quitting. Status of Tobacco Cessation Counseling: #1, #2 AND #3 Completed Cessation Med Status Nicotine Patch Ordered Alcohol Screening - ETOH screen POS if BAL >=80 or Audit-C>= M4/F3 Audit-C Score from Diag Assess: 3 Blood Alcohol Level: Laboratory Tests 10/23 2029 Toxicology Serum Alcohol (<10 MG/DL) < 10.0 Alcohol Use Screening Results: Neg per Audit C &/or BAL - If ETOH counseling indicated - the following topics are required. - #1 Express concern about the patient's - drinking at unhealthy levels, include informing - of national norms for moderate drinking: - men <= 14 drinks/week, max 4 drinks/occasion - women <= 7 drinks/week, max 3 drinks/occasion - #2 Providing feedback, including linking alcohol to - negative physical effects (liver injury, hypertension) - negative emotional effects (relationship problems and - depression) - negative occupational consequences (reduced work - performance) - #3 Advising the patient to abstain from alcohol or - to drink below national norms for moderate drinking - (as listed above). Status of ETOH Use Counseling: N/A B/C NO ETOH Use Metabolic Screening - Screen if on a Neuroleptic Medication - Metabolic screening should include: - Blood Pressure, BMI, Glucose or Hgb A1c, & a - Lipid profile from within the past 365 days. Metabolic Screening Patient on a neuroleptic(s) . Enter below results for Hemoglobin A1C, and lipid panel if obtained during the last 365 days. BMI: 27.900 Blood Pressure: 146/79 Laboratory Results From [facility] (If applicable): will request HbA1c Lab Cholesterol 168 MG/DL 12/08/16 0630 Cholesterol/HDL Ratio 4 % 12/08/16629 Glucose 125 mg/dL H 10/23/17 2030 HDL Cholesterol 43 mg/dL 12/08/16 06 LDL Cholesterol, Calc 97 mg/dL 12/08/16 06 Triglycerides 143 mg/dL 12/08/16 06 Exam and Plan Mental Status Examination Ambulation Status: Steady gait Appearance: Unremarkable Attitude towards examiner: Cooperative and pleasant Psychomotor activity: Normal psychomotor activity Behavior: No abnormal behaviors Quality of speech: Normal speech not pressured not slurred Affect: Full range of affect Mood: He reports he is depressed Suicidal Ideation: Reported thoughts of suicide yesterday, denied them today Homicidal Ideation: Denied violent thoughts or homicidal ideation Hallucinations: Denied hallucinations Paranoid/Delusional Material: Denied feeling paranoid, there were no delusions during the interview Difficulties with thought organization: No difficulties with thought organization, coherent Insight: Partial insight Judgment: And impaired judgment Orientation: Alert, oriented to time place and person. Cognition: Some difficulties with attention and concentration Memory Function: No significant impairment in short-term memory Estimate of intellectual functioning: Average Assets/Strengths Patient Identified Assets/Strengths: Patient seems to be likable, easily engaged Impression/Plan Impression and Plan: 57-year-old white male who was been homeless was admitted [facility] because of thoughts of suicide - Include all active medical diagnosis that require tx DSM 5 Diagnosis(es): Unspecified Bipolar disorder PTSD; Alcohol use disorder; Cocaine use disorder; History of methamphetamine use disorder; Bunion to right foot; COPD; HTN; Degenerative disc disease of the cervical spine. - Initial Tx Plan for Active Psych & Medical Conditions Treatment Plan: Inpatient psychiatric care with safety checks every 15 minutes Nurses: To do a nurse's assessments, vital signs, and provide patient education. Group therapy and milieu therapy and RN IMCU: To obtain collateral information and aftercare planning/discharge planning Psychiatrist to evaluate the patient's mental status daily and monitor medications - Factors that would help patient function - in a less restrictive setting. Factors: Adherence to medications
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
--- NOTE | 2017-10-25 14:26 | SOCIAL WORKER PROG NOTE PSYCH ---
Social Work Progress Note Progress Note Legal Secretary met with Hernán today in his room. Hernán reported to be feeling "out of sorts". He described feeling helpless and hopeless and that he had a physical sensation of his "body racing" while also feeling that his "mind is like glue". He described this "body racing" as feeling very activated like his limbs were full of energy. He clarified that what he meant by his mind "being like glue" was that he could not think clearly or speak fluidly. Hernán stated that he felt that the Zoloft he was being prescribed here was causing him to feel activated, but "not in a good way, in a manic way". He also described feeling irritable due to his tobacco/nicotine craving. He told this marine underwriter that he felt like he had made a mistake by coming to the hospital as he was not feeling better. Hernán stated that these feelings of hopelessness and loneliness began when his friend, Gatito moved out some months ago. He stated that he felt like he was not safe living alone as he felt scared that he might hurt himself. Of note, Gatito was not authorized to live in Hernán's apartment and was forced to vacate by the [facility] [facility]. Hernán stated that since living alone, he has overwhelming feelings of anxiety as well as negative self-talk. He feels as though he is a "monster" and that no one wants to be around him. He stated that he took his prescribed Neurontin every hour or sometimes even every half hour in an attempt to deal with the anxiety ( of note, it is prescribed to be taken every 6-8 hours). Hernán stated that his goal of hospitalization was to feel better about himself and to resolve the feelings of anxiety and depression. Additionally, Hernán would like to be discharged to a sober house through [facility] in [place]. He is connected to Luis at [facility] and stated that Luis agreed to come see him while he is hospitalized. (Luis: [phone]) Hernán signed a release for Luis. Hernán did not identify any of his siblings nor any other supports that he would like to come in for a meeting during this hospitalization.
--- NOTE | 2017-10-25 15:34 | SOCIAL WORKER TX PLAN PSYCH ---
Sweetie Morocho 10/25/17 1515: Treatment Plan - Please Document: - Evidence that there is ongoing collaboration between - the patient and the interdisciplinary team, - including the patient's active participation and - responsibility for engaging in the treatment regimen, - and that the treatment plan is individualized and - relevant to the patient's conditions. - Treatment plan should reflect documentation indicating - that all active therapeutic efforts are included. Strengths/Capabilities: Hernán was able to seek help when he was feeling helpless/hopeless; he is connected to [facility] in [place]; he is connected to [facility] in [place]; average intelligence Physical Limitations (Interventions): Pain related to chronic back & nerve pain, degenerative disk disease Patient Identified [facility] Goals: "To feel better about myself and to feel less lonely." Patient also stated that would like to [place] staff to connect him with [facility] sober house in [place]. Discharge Plan: Discharge to home and [facility] or to sober [facility] in [place]. Problem/Goals #1 Problem #1: depression Goal (Short Term): Patient will reduce feelings of helplessness and loneliness by attending at least 2 groups per day. Goal (Graphics Specialist): Patient will be able to verbalize feeling safe so that he can discharge from the hospital. Interventions: Patient will be offered the follow groups: Coping Skills, Wellsness, Accupuncture, Self-Esteem and Expressive Arts. sawmill production worker will help patient to challenge and reframe negative thoughts. Patient will be offered medication management by the psychiatrist. Modalities: Individual therapy, group therapy, case management, medication management Problem/Goals #2 Problem #2: Polysubstance use Goal (Short Term): Patient will attend AA, symptom management, and self-esteem groups to help him gain insight into his substance use behaviors. Goal (Correction): Patient will identify three coping skills that are more adaptive for him than his substance use. Interventions: Patient will be offered the following groups: Journaling, Coping Skills, AA, Relapse Prevention and Symptom Management. sawmill production worker will help patient gain insight into his patterns of substance use through individual counseling. Modalities: Individual therapy, group therapy, case management, medication management DSM5/PS Stressors/Medical Prob Diagnosis' (DSM 5, Stressors, Medical): Bipolar d/o F31.4 Cocaine use d/o 14.20 lonely/isolative Current GAF: 20 Treatment Team - Responsibilities of members of the treatment team include: - Medication Management- MD or SUPERVISOR COMMERCIAL FISH HATCHERY - Medication Administration and Monitoring- Nurse - Group Therapy- Occupational Therapist - 1:1 Therapy,Disch Planning,family involvement-Echocardiologist Skylar Hilario LCSW 10/25/17 1556: Treatment Plan - Please Document: - Evidence that there is ongoing collaboration between - the patient and the interdisciplinary team, - including the patient's active participation and - responsibility for engaging in the treatment regimen, - and that the treatment plan is individualized and - relevant to the patient's conditions. - Treatment plan should reflect documentation indicating - that all active therapeutic efforts are included. DSM5/PS Stressors/Medical Prob Treatment Team - Responsibilities of members of the treatment team include: - Medication Management- MD or SUPERVISOR COMMERCIAL FISH HATCHERY - Medication Administration and Monitoring- Nurse - Group Therapy- Occupational Therapist - 1:1 Therapy,Disch Planning,family involvement-Echocardiologist
[2017-10-25 15:37] VITALS: BP 118/73
[2017-10-25 20:14] VITALS: BP 159/77
[2017-10-26 07:43] VITALS: BP 136/96
--- NOTE | 2017-10-26 08:29 | CP SOUTH PROGRESS NOTE PSYCH ---
Psych (Inpt) Progress Note Progress Note Vital Signs Date Time Temp Pulse B/P 10/26 0743 96.9 74 136/96 10/25 2013 98.7 68 159/77 10/25 1537 78 118/73 10/25 1215 66 146/79 Mental Status Examination: Patient was jovial this morning, seemed in good spirits with high energy. He was talkative but not pressured. Steady gait, Unremarkable appearance, cooperative and pleasant, normal psychomotor activity No abnormal behaviors, Normal speech not pressured not slurred Full range of affect, He reported him mood to be "good" this morning/not depressed, denied thoughts of suicide, denied violent thoughts or homicidal ideation, Denied hallucinations, Denied feeling paranoid, there were no delusions during the interview No difficulties with thought organization, coherent, partial insight, impaired judgment, alert, oriented to time place and person. Some difficulties with attention and concentration, no significant impairment in short-term memory Assessment: 57-year-old white male who was been homeless was admitted via [facility] because of thoughts of suicide probably triggered by homelessness Diagnoses: Unspecified Bipolar Disorder PTSD Alcohol use disorder; Cocaine use disorder; History of methamphetamine use disorder; COPD; HTN Degenerative disc disease of the cervical spine. Treatment Plan: Increase Sertraline to 50 mg Q 08:00 AM Continue Ativan 1 mg QHS Continue Abilify 5 mg daily Inpatient psychiatric care with safety checks Q 15 minutes Nurses: provide assessments, vital signs, and patient education. Group therapy and milieu therapy FLOORMAN: To obtain collateral information and aftercare planning/discharge planning Psychiatrist to evaluate the patient's mental status daily and monitor medications
--- NOTE | 2017-10-26 09:06 | SOCIAL WORKER PROG NOTE PSYCH ---
Social Work Progress Note Progress Note Hernán reported he met with the doctor this morning and he is increasing his Gabapentin. He reported disrupted sleep last night, stating this is not anything new for him. He is eager to pursue a recovery home called [facility]. He has signed a release for me to call the manager of information. He feels the structure, support, and tx there would be beneficial. He does not care to remain at his apartment alone and states he is a "mess at home." He said he tried to reach out to [facility] for support, but had trouble getting an appt. with his clinician and reports that his prescriber keeps changing. He admits to not taking his meds as prescribed at home. He said he would stop taking them due to side effects of fatigue and appetite disturbance. He has remained connected to [employer] and has a sponsor, but reports going sporadically. He said the drinking and crack cocaine use has been happening every couple of months. Called Luis Fajardo [phone] to discuss availability at [facility]. Luis and I spoke. He said he would most likely have a bed for Hernán in a week or two and that he wants to ensure he is stable enough to come in. He is concerned about med compliance and was wondering if he would be able to get a visiting nurse for meds. This is something I would need to explore, since he is on [employer]. He mentioned Hernán possibly going to [facility] before coming if needed. Hernán would have to pay 160.00 a week and there is a 300.00 deposit. He is opening to coming to meet with Hernán on the unit here. We will coordiate a time for next week.
[2017-10-26 11:52] VITALS: BP 145/86
[2017-10-26 15:53] VITALS: BP 131/89
[2017-10-26 20:08] VITALS: BP 127/76
[2017-10-27 07:49] VITALS: BP 138/76
[2017-10-27 12:17] VITALS: BP 130/86
--- NOTE | 2017-10-27 13:17 | CP SOUTH PROGRESS NOTE PSYCH ---
Psych (Inpt) Progress Note Progress Note Include the following elements, when applicable: Involvement in the active treatment of the patient with behavioral observations of the patient and the patient's response to the treatment. Review of the ongoing treatment process in the context of the treatment plan. Indication of how multi-disciplinary staff members are carrying out the treatment plan. Plans for future interventions and recommendations for revision of the treatment plan. Liaison with other physicians/providers. Progress Note: Chart reviewed, progress discussed with nursing staff. Interviewed patient this morning. Pleasant, cooperative, conversant. He remembered me from a previous admission. Reports his mood is "getting better", denies medication side effects , reports improving sleep with Ativan at night. Does note some right shoulder pain which is chronic for him, and we agree on 3 times a day application of a hot pack. Denies any SI or HI. Vital signs are within normal limits. No new laboratory results today. Mental status exam: Borderline groomed man, appears older than stated age, fair eye contact, no psychomotor agitation or retardation, speech is within normal limits. Mood is "getting better ", affect is mildly constricted, non- labile. Thought processes logical and linear, content without SI or HI. Denies any perceptual disturbances. Cognition is grossly intact. Insight and judgment is fair. A/P: Mood slowly improving, tolerating medications well, continue present management as per primary team.
[2017-10-27 16:03] VITALS: BP 148/80
[2017-10-27 19:34] VITALS: BP 142/78
[2017-10-28 07:38] VITALS: BP 140/73
[2017-10-28 12:08] VITALS: BP 157/82
--- NOTE | 2017-10-28 13:22 | CP SOUTH PROGRESS NOTE PSYCH ---
Psych (Inpt) Progress Note Progress Note Include the following elements, when applicable: Involvement in the active treatment of the patient with behavioral observations of the patient and the patient's response to the treatment. Review of the ongoing treatment process in the context of the treatment plan. Indication of how multi-disciplinary staff members are carrying out the treatment plan. Plans for future interventions and recommendations for revision of the treatment plan. Liaison with other physicians/providers. Progress Note: Chart reviewed, progress discussed with nursing staff. Interviewed patient this morning. Again, pleasant, cooperative, conversant. Reports sleeping well. "I wish that they would just prescribe me that Ativan at night when I leave the hospital. It works really well for me." His shoulder pain is much improved with regular application of hot pack. He denies any SI or HI. He is motivated to identify a way to get himself to a sober living facility. Vital signs are within normal limits. No new laboratory results today. Mental status exam: Borderline groomed man, appears older than stated age, fair eye contact, no psychomotor agitation or retardation, speech is within normal limits. Mood is "getting better ", affect is mildly constricted, non- labile. Thought processes logical and linear, content without SI or HI. Denies any perceptual disturbances. Cognition is grossly intact. Insight and judgment is fair. A/P: Mood slowly improving, tolerating medications well, continue present management as per primary team.
[2017-10-28 16:07] VITALS: BP 146/71
[2017-10-28 19:50] VITALS: BP 147/96
[2017-10-29 07:37] VITALS: BP 139/82
--- NOTE | 2017-10-29 08:54 | SOCIAL WORKER PROG NOTE PSYCH ---
Social Work Progress Note Progress Note Hernán told me this morning that he had a good weekend talking to friends, playing games on the unit with peers, kept busy. He shared that he didn't have a good experience talking to Luis from [facility]. He stated that he felt that Luis doesn't really want to help him and that the two of them seem to clash. At this point he doesn't feel comfortable pursuing [facility] and he would prefer to return to him apartment and go to [facility]. I asked him what would be different once he returns home? He said he feels that reconnecting with [facility] and going to their IOP would be helpful. He also mentioned getting V[facility] services set up. He had services in past through [facility], now known as [facility]. He signed a release for [facility] and asked that I fax a referral to intake. He also signed a release for [facility]. Followed up with [facility] and scheduled an intake for Thursday 11/02 at 9:30am. They have a dual IOP on M,T,R from 2-5pm. He may not be seen by a prescriber for 3-4 weeks. Called [facility] and did the referral for Hernán. Let them know we anticipate discharge for Sunday.
[2017-10-29 12:08] VITALS: BP 146/85
--- NOTE | 2017-10-29 14:51 | CP SOUTH PROGRESS NOTE PSYCH ---
Psych (Inpt) Progress Note Progress Note Laboratory Tests 10/29 0549 [place] (0.6 - 1.2 mmol/L) 0.4 L Vital Signs Vital Signs Date Time Temp Pulse B/P 10/29 1208 69 146/85 10/29 0737 98.0 76 139/82 10/28 1950 98.8 87 147/96 10/28 1607 72 146/71 Mental Status exam: Patient looked older than stated age, fair eye contact, no psychomotor agitation or retardation, speech is within normal limits. Mood is "getting better ", affect is non-labile. Thought processes logical and linear, content without SI or HI. Denies any perceptual disturbances. Cognition is grossly intact. Insight and judgment is fair. Assessment and Progress: Hernán is a 57-year-old white male who was admitted because of voicing thoughts of suicide Diagnoses: Unspecified Bipolar Disorder PTSD Alcohol use disorder; Cocaine use disorder; History of methamphetamine use disorder; COPD; HTN Degenerative disc disease of the cervical spine. Treatment Plan: Increase [place] to 300 mg Q 08:00 AM and 450 mg @ 08:00 PM Sertraline 50 mg Q 08:00 AM Continue Ativan 1 mg QHS Continue Abilify 5 mg daily Continue inpatient psychiatric care with safety checks Q 15 minutes Nurses: provide assessments, vital signs, and patient education. Group therapy and milieu therapy FORESTRY WORKER: To obtain collateral information and aftercare planning/discharge planning Psychiatrist to evaluate the patient's mental status daily and monitor medications Psychiatrist to evaluate the patient's mental status daily and monitor medications
[2017-10-29 16:04] VITALS: BP 146/78
[2017-10-29 19:58] VITALS: BP 146/74
[2017-10-30 07:30] VITALS: BP 133/83
--- NOTE | 2017-10-30 08:58 | SOCIAL WORKER PROG NOTE PSYCH ---
Social Work Progress Note Progress Note Hernán talked about wanting discharge this morning. He reports that he is feeling well and happy with his med changes. He is appreciative of the services being put in place ([facility]). We talked about how he normally gets to his appts. He is comfortable using the bus or [facility]. Discussed d/c in team meeting- concern was raised over a comment around him being back in the same place prior to hospitalization when he returns home. Dr. Elizondo and I met with Hernán together. Asked him about this comment. He said that he doesn't want to end up in the same place and that he is doing everything in his power to not be. He said he was thinking about his friend who he had been living with and has accepted the fact that they won't be in a relationship moving forward and needs to move on. He was asked directly if he was just wanting to go to smoke or he really felt his symptoms were improved? He said he feels good and wants to leave today. He did inquire if he could be prescribed Ativan for at night. I told him that dual IOP would not like the fact that he would be on a benzo and maybe he could find something else to help with his anxiety. Dr. Elizondo will increase his Neurontin.
--- NOTE | 2017-10-30 09:04 | CP SOUTH PROGRESS NOTE PSYCH ---
Psych (Inpt) Progress Note Progress Note Vital Signs Date Time Temp Pulse B/P O2 O2 Flow FiO2 Delivery Rate 10/30 0730 96.8 73 133/83 10/29 1958 98.0 77 146/74 10/29 1604 78 146/78 10/29 1208 69 146/85 Mental Status Exam: The patient was interviewed twice today. Initially he wanted to leave today because he was craving cigarettes. Nursing staff voiced concern about patient's readiness for discharge because he made a statement that "if I am discharged I am going to end up in the same situation." So, Debo Hilario, LIQUOR RUNNER & I interviewed him again together. He seemed to have had a difficult life and looked much older than his 57 years He did show good eye contact, and did not show psychomotor agitation or retardation. He does have some Tardive Dyskinesia of trunk and lower extreminties (mild to moderate), worsened by his anxiety of being interviewed again speech is within normal limits. Mood is "good", affect was elevated but not labile. His thought processes was--for the most part--coherent and linear, He has been denying thoughts of suicide, denied violent thoughts or thoughts of homicide Denies hallucinations/perceptual disturbances. Cognition is grossly intact. Insight and judgment were fair. Assessment and Progress: Hernán is a 57-year-old white male who was admitted because of voicing thoughts of suicide. He continues to show some hypomania but has not voiced thoughts of suicide in several days now Diagnoses: Unspecified Bipolar Disorder PTSD Alcohol Use disorder; Cocaine Use disorder; History of Stimulant (methamphetamine) use disorder; COPD; HTN Degenerative disc disease of the cervical spine. Treatment Plan Update: After balancing patient's risk factors vs. protective/risk-mitigating factors, I believe patient is low risk, his lithium was adjusted yesterday due to level of 0.4 douglas molar and he will need level next week
[2017-10-30] MEDS ORDERED: LITHIUM CARBON300 M4 PO (10:18)
[2017-10-30] MEDS ORDERED: VENTOLIN HFA18 GM INH (10:18)
[2017-10-30] MEDS ORDERED: SYMBICORT 16010.2 GM INH (10:18)
[2017-10-30] MEDS ORDERED: ABILIFY5 M1 PO (10:18)
[2017-10-30] MEDS ORDERED: LITHIUM CARBON150 M1 PO (10:18)
[2017-10-30] MEDS ORDERED: GABAPENTIN600 M1 PO (10:18)
[2017-10-30] MEDS ORDERED: SERTRALINE HCL50 MG PO (10:19)
--- NOTE | 2017-10-30 10:21 | Patient Discharge Instructions ---
Psych Discharge Inst General Discharge Information Reason for Admission: 57-year-old white male who was admitted because of voicing thoughts of suicide Psy Discharge Primary Diag+ Unspecified Bipolar Disor Psy Discharge Secondary Diag+ PTSD Alcohol Use Disorder Summary Tests/Major Procedures Lab Cholesterol 168 MG/DL 12/08/16 0630 Cholesterol/HDL Ratio 4 % 12/08/16 0630 Glucose 125 mg/dL H 10/23/17 2030 HDL Cholesterol 43 mg/dL 12/08/16 0630 LDL Cholesterol, Calc 97 mg/dL 12/08/16 0630 Triglycerides 143 mg/dL 12/08/16 0630 [place] 0.4 mmol/L L 10/29/17 0549 Studies Pending at DC: None, Hernán will be given Lab slip to do lithium blood work for next week Patient Instructions Contact Information Your Psychiatrist on [facility] was Michelet Elizondo MD * If you are experiencing an emergency related to this hospitalization, please call [phone] to contact the treating psychiatrist or the psychiatrist-on- call. * To Request a copy of your medical records, please contact the Medical Records Department at [phone]. * To request results of studies pending at the time of discharge, please call [phone]. * Continue your Medications until directed to stop by your Healthcare provider. General Medication Information Please continue to take your new medications and your continued home medications , unless otherwise indicated on your discharge medication list, or unless directed by your MD or TEACHER RESOURCE to stop them. Special Instructions Diet Regular Activity Normal Other Inst/Recommendations Bllod test next week - Tobacco Use Treatment Offered Post DC Medications Offered: Refused Tob Medication Tx Post DC Tobacco Treatment Plan: Refused Tobacco Tx Pgm - EtOH/Drug Use D/O Treatment Offered Post DC Medications Offered: Script Given-See Med List Post DC EtOH/SubAbuse TX Plan: Other SubAbuse/Dual Pgm Metabolic Screening Patient on a neuroleptic(s) . Enter below results for Hemoglobin A1C, and lipid panel if obtained during the last 365 days. BMI: 27.900 Blood Pressure: 133/83 Laboratory Results From [facility] (If applicable): Lab Cholesterol 168 MG/DL 12/08/16 0630 Cholesterol/HDL Ratio 4 % 12/08/16 0630 Glucose 125 mg/dL H 10/23/17 2030 HDL Cholesterol 43 mg/dL 12/08/16 0630 LDL Cholesterol, Calc 97 mg/dL 12/08/16 0630 Triglycerides 143 mg/dL 12/08/16 0630 Advance Directives Does the Patient have Medical Advance Directives No/Per pt req info given Does Pt have Psychiatric Advance Directives? No/Per pt req info provid Does Patient have a Designated Surrogate Decision Maker: No Information About Psychiatric Advance Directives Provided? Yes Discharge Plan Post Hospital Treatment Plan: [facility]
--- NOTE | 2017-10-30 11:25 | SOCIAL WORKER PROG NOTE PSYCH ---
Social Work Progress Note Faxed Referral(s) 1 Referred To: [facility] Transition of Care Documents sent: Health Summary, W10 Faxed to: Simón Chew Fax #: [phone] Faxed by: Debo Hilario Date faxed: 10/30/17 Time Faxed: [phone] Faxed Referral(s) 2 Referred To: [facility] Documents sent: Health Summary, W10 Faxed to: Kristen Fax #: [phone] Faxed by: Debo Hilario Date faxed: 10/30/17 Time Faxed: [phone]
--- NOTE | 2017-10-30 11:42 | DISCHARGE SUMMARY REPORT-PSYCH ---
Visit Information Visit Dates/Diagnosis' Admission Date: 10/24/17 Discharge Date: 10/30/17 Reason for Admission: 57-year-old white male who was admitted because of voicing thoughts of suicide Psy Discharge Primary Diag: Unspecified Bipolar Disor Psy Discharge Secondary Diag: PTSD Alcohol Use Disorder Hospital Course Significant Lab Findings: Lab BUN 15 mg/dL 10/23/172029 BUN/Creatinine Ratio 18.8 % 10/23/172029 Creatinine 0.8 mg/dL 10/23/172029 Estimated GFR > 60 ml/min 10/23/172029 [place] 0.4 mmol/L L 10/29/17 0549 Urine Cocaine Screen > 1000 NG/ML H 10/23/172045 Course Complications: none Consultations: Physical Exam by Reginald Rodriguez MD, on 10/24/17 General Appearance Alert, Oriented X3, Cooperative, No Acute Distress Skin No Rashes HEENT PERRLA, EOMI Neck Supple, No JVD, No thryomegaly Lymphatic Axillary nl, Cervical nl Cardiovascular Regular Rate, No Murmurs Lungs Clear to Auscultation, Normal Air Movement Abdomen Soft, No Tenderness, No Hepatospenomegaly Neurological Exam Findings: Normal Gait, Normal Speech, Strength at 5/5 X4 Ext, Normal Tone, Sensation Intact, Cranial Nerves 3-12 NL, Reflexes 2+ Cranial Nerves II through XII: Intact Extremities No Cyanosis, No Edema, Normal Pulses, No Tenderness/Swelling Vascular Normal Pulses, Pulses Symmetrical Allergies: Coded Allergies: NO KNOWN ALLERGIES (01/15/16) Hospital Course/TX Response: 10/25/2017 Impression and Plan (by Dr. Caro MD): 57-year-old white male who was been homeless was admitted [facility] because of thoughts of suicide DSM 5 Diagnosis(es): Unspecified Bipolar disorder PTSD; Alcohol use disorder; Cocaine use disorder; History of methamphetamine use disorder; Bunion to right foot; COPD; HTN; Degenerative disc disease of the cervical spine. Treatment Plan: Inpatient psychiatric care with safety checks every 15 minutes Nurses: To do a nurse's assessments, vital signs, and provide patient education. Group therapy and milieu therapy and VIDEO GAMES MECHANIC: To obtain collateral information and aftercare planning/discharge planning Psychiatrist to evaluate the patient's mental status daily and monitor medications 10/26/2017: Increase Sertraline to 50 mg Q 08:00 AM Continue Ativan 1 mg QHS Continue Abilify 5 mg daily 10/27/2017 and 10/28/2017 (by Dr. Laureano Walls MD): A/P: Mood slowly improving, tolerating medications well, continue present management as per primary team. 10/29/2017 (Dr. Caro MD): Increase [place] to 300 mg Q 08:00 AM and 450 mg @ 08:00 PM Sertraline 50 mg Q 08:00 AM Continue Ativan 1 mg QHS Continue Abilify 5 mg daily 10/30/2017: Vital Signs Date Time Temp Pulse B/P O2 O2 Flow FiO2 Delivery Rate 10/30 0730 96.8 73 133/83 10/29 1958 98.0 77 146/74 10/29 1604 78 146/78 10/29 1208 69 146/85 Mental Status Exam: The patient was interviewed twice today. Initially he wanted to leave today because he was craving cigarettes. Nursing staff voiced concern about patient's readiness for discharge because he made a statement that "if I am discharged I am going to end up in the same situation." So, Debo Hilario, VIDEO GAMES MECHANIC & I interviewed him again together. He seemed to have had a difficult life and looked much older than his 57 years He did show good eye contact, and did not show psychomotor agitation or retardation. He does have some Tardive Dyskinesia of trunk and lower extreminties (mild to moderate), worsened by his anxiety of being interviewed again speech is within normal limits. Mood is "good", affect was elevated but not labile. His thought processes was--for the most part--coherent and linear, He has been denying thoughts of suicide, denied violent thoughts or thoughts of homicide Denies hallucinations/perceptual disturbances. Cognition is grossly intact. Insight and judgment were fair. Assessment and Progress: Hernán is a 57-year-old white male who was admitted because of voicing thoughts of suicide. He continues to show some hypomania but has not voiced thoughts of suicide in several days now Diagnoses: Unspecified Bipolar Disorder PTSD Alcohol Use disorder; Cocaine Use disorder; History of Stimulant (methamphetamine) use disorder; COPD; HTN Degenerative disc disease of the cervical spine. Treatment Plan Update: After balancing patient's risk factors vs. protective/risk-mitigating factors, I believe patient is low risk, his lithium was adjusted yesterday due to level of 0.4 douglas molar and he will need level next week Discharge HBIPS - Tobacco Use Treatment Offered Post DC Medications Offered: Refused Tob Medication Tx Post DC Tobacco Treatment Plan: Refused Tobacco Tx Pgm - EtOH/Drug Use D/O Treatment Offered Post DC Medications Offered: Script Given-See Med List Post DC EtOH/SubAbuse TX Plan: Other SubAbuse/Dual Pgm Metabolic Screening - Screen if on a Neuroleptic Medication - Metabolic screening should include: - Blood Pressure, BMI, Glucose or Hgb A1c, & a - Lipid profile from within the past 365 days. Metabolic Screening Patient on a neuroleptic(s) . Enter below results for Hemoglobin A1C, and lipid panel if obtained during the last 365 days. BMI: 27.900 Blood Pressure: 133/83 Laboratory Results From [facility] (If applicable): Note: Hernán was given a lab slip to repeat lithium blood work next week (and Hba1c was added to that to be done as outpatient) Lab Cholesterol 168 MG/DL 12/08/16 0630 Cholesterol/HDL Ratio 4 % 12/08/16 0630 Glucose 125 mg/dL H 10/23/17 2030 HDL Cholesterol 43 mg/dL 12/08/16 0630 LDL Cholesterol, Calc 97 mg/dL 12/08/16 0630 Triglycerides 143 mg/dL 12/08/16 0630 Discharge Instructions General Discharge Information Multiple Neuroleptics: (X) Not Applicable Discharge Diet Regular Discharge Activity Normal DC Disposition: Home with Manoj Follow Up Referrals Ordered Referrals Provider Referral 11/02/17 For Groups: [[facility]] [facility] Int[facility] appt. 11/02/17 9:30am Dual IOP recommended [address] [place], [place] [phone] Provider Referral 10/30/17 For Groups: [facility] for daily med administration starting 10/30/17 Provider Referral 11/07/17 For Groups: Outpatient Psychiatry [facility] Smoking Cessation Group 11/07/17 4pm [address] [id number] Prescriptions Stop taking the following medications: Fluticasone/Salmeterol (Advair 250-50 Diskus) 250 MCG-50 MCG/DOSE BLST.W.DEV Inhale through mouth TWICE DAILY Qty = 60 Gabapentin (Neurontin) 800 MG TABLET ORAL 4 TIMES A DAY Qty = 56 Aripiprazole (Abilify) 10 MG TABLET ORAL Every night Qty = 14 [place] Carbonate ([place] Carbonate) 300 MG CAPSULE ORAL Qty = 56 Start taking the following new medications: Albuterol Sulfate (Ventolin Hfa) 90 MCG HFA.AER.AD 2 Puff Inhale through mouth Every 4 hours as needed for SHORTNESS OF BREATH Qty = 1 No Refills Comments: Last Taken:10/25/17 Time:1830 Aripiprazole (Abilify) 5 MG TABLET 5 Millig[place] ORAL DAILY @8 AM Qty = 30 No Refills Comments: Last Taken:10/30/17 Time:0800 [place] Carbonate ([place] Carbonate) 300 MG CAPSULE 300 Milligram ORAL DAILY @8 AM Qty = 30 No Refills Comments: Last Taken:10/30/17 Time:0800 [place] Carbonate ([place] Carbonate) 150 MG CAPSULE 450 Milligram ORAL 1999 Qty = 90 No Refills Comments: Last Taken:10/29/17 Time:1999 Budesonide/Formoterol Fumarate (Symbicort 160-4.5 Mcg Inhaler) 160 MCG-4.5 MCG/ ACTUATION HFA.AER.AD 2 Puff Inhale through mouth TWICE DAILY Qty = 1 No Refills Comments: Last Taken:10/30/17 Time:0800 Sertraline HCl (Sertraline HCl) 50 MG TABLET 50 Millig[place] ORAL DAILY @8 AM Qty = 30 No Refills Comments: Last Taken:10/30/17 Time:0800 Gabapentin (Gabapentin) 600 MG TABLET 2 Tablet ORAL THREE TIMES DAILY Qty = 180 No Refills Comments: Last Taken:10/30/16 RECEIVED 800MG Time:0800 Other Inst/Recommendations Blood test next week Studies Pending at Discharge NoneHernán will be given Lab slip to do lithium blood work for next week Copies To: Maria T
== END 2017-10-30 11:11 | DRG 753 ==
LOC: ERH 20:10 → CP SOUTH 10-24 08:44 → ERHI 10-24 08:44 → ENTRNSPT 10-24 10:23 → EDTRNSPT 10-24 10:25 → EDTRNSPTSTS 10-24 10:25 → CP SOUTH 10-24 10:33 → CMPTRNSPT 10-24 10:49 → ENRESERV 10-24 11:00 → CP SOUTH 10-30 11:11
PROVIDERS: Physician Assistant Medical
DX: F31.9 Bipolar disorder, unspecified (principal); F43.10 Post-traumatic stress disorder, unspecified; Z72.89 Other problems related to lifestyle
CPT/HCPCS: 36415; 80307; 93005; 93010; G0480; J3490

== ENCOUNTER 2017-12-23 13:53 | Inpatient (IN) | payer OTHER ==
[~2017-12-23] VITALS: Ht 180.3 cm; Wt 89.9 kg
[~2017-12-23 13:53] MED LIST changes: +ABILIFY5 M1 PO; +GABAPENTIN600 M1 PO; +LITHIUM CARBON150 M1 PO; +SERTRALINE HCL50 MG PO; +SYMBICORT 16010.2 GM INH; +VENTOLIN HFA18 GM INH
--- NOTE | 2017-12-23 14:17 | ED GENERAL ADULT ---
History of Present Illness General Chief Complaint: Psychiatric Related Complaint Stated Complaint: +SI Source: patient Exam Limitations: no limitations Vital Signs & Intake/Output Vital Signs & Intake/Output Vital Signs Date Time Temp Pulse Resp B/P B/P Pulse O2 O2 Flow FiO2 Mean Ox Delivery Rate 12/25 1557 71 109/82 12/25 1555 71 109/82 12/25 1211 63 138/60 12/25 1205 63 138/60 12/25 0755 96.7 61 132/75 12/25 0740 96.7 61 132/75 12/24 2008 97.6 65 124/74 12/25 2003 97.6 65 124/74 ED Intake and Output 12/25 0000 12/24 1200 Intake Total Output Total Balance Patient 198 lb Weight Allergies Coded Allergies: NO KNOWN ALLERGIES (01/15/16) Reconcile Medications Albuterol Sulfate (Ventolin Hfa) 90 MCG HFA.AER.AD 2 PUF INH Q4 PRN SHORTNESS OF BREATH Aripiprazole (Abilify) 5 MG TABLET 5 MG PO 0800 mood stability Budesonide/Formoterol Fumarate (Symbicort 160-4.5 Mcg Inhaler) 160 MCG-4.5 MCG/ ACTUATION HFA.AER.AD 2 PUF INH BID COPD Gabapentin 600 MG TABLET 2 TAB PO TID anxiety/nerve pain [place] Carbonate 300 MG CAPSULE 300 MG PO 0800 mood [place] Carbonate 150 MG CAPSULE 450 MG PO 2000 Mood Sertraline HCl 50 MG TABLET 50 MG PO 0800 anxiety Triage Note: 57M RECENTLY DISCHARGED "FROM UPSTAIRS" AND SPIRALED OUT OF CONTROL. REPORTS INTENTIONAL OVERDOSE ON GABAPENTIN AND IBUPROFEN OVER THE LAST 3 DAYS, AND HAS BEEN BINGING ON ETOH AND CRACK. ENDORSES DYSPHORIA, DEPRESSION, HOPELESSNESS AND LONELINESS. ALSO REPORTS SHOULDER PAIN AND ABDOMINAL DISCOMFORT, DENIES BLACK BLOODY STOOL. DENIES CHEST PAIN. HYPERVERBAL BUT PLEASANT IN TRIAGE. MOTIVATED FOR TREATMENT. Triage Nurses Notes Reviewed? yes Onset: Abrupt Duration: day(s): (3), constant, continues in ED, getting worse Timing: single episode today Injury Environment: home Severity: moderate, severe No Modifying Factors: none Associated Symptoms: back pain HPI: 57-year-old male past medical history of chronic back pain, alcohol dependence, depression, anxiety, bipolar disorder presents for evaluation of suicidal ideation. Patient states that 3 days ago he began feeling depressed or he took an overdose of gabapentin ibuprofen. He states that starting 3 days ago over a 48 hour period he took 6800 mg gabapentin tablets. He states that he took several every few hours. He states that starting 2 days ago he also began taking 800 mg ibuprofens he took an unknown amount over 2 days. He had 90 800 gram gabapentin tablets filled on 411 that are all gone and 60 800 mg ibuprofen tablets on 417 that are all gone. Patient states that he has not had any melena or bright red blood per rectum. He does report that his chronic back pain is been bothering him since she's been unable to gabapentin today. He also reports some epigastric tenderness for the past few days since he started the ibuprofen. No chest pain shortness of breath he is urinating normally. He does admit to using cocaine. He still remains depressed and is actively suicidal. He's been seen in the past for similar symptoms. He denies hallucinations no alcohol use. He has not taken any of his psychiatric medications including lithium for greater than 3 months. (Paco Castrejon) Past History Travel History Traveled to [place] past 21 day No Medical History Any Pertinent Medical History? 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 Psychosocial History Who do you live with Patient/Self Services at Home None What is your primary language Tanzanian Tobacco Use: Current Daily Use Daily Tobacco Use Amount/Type: => 5 Cigarettes daily Family History Family History, If Any: FATHER ( - CHF, lung cancer). MOTHER ( - Alzheimer's). Maternal grandparents (Stroke). BROTHER (Prostate cancer). Hx Contributory? No (Paco Castrejon) Review of Systems Review of Systems Constitutional: Reports: no symptoms. EENTM: Reports: no symptoms. Respiratory: Reports: no symptoms. Cardiovascular: Reports: no symptoms. GI: Reports: abdominal pain. Genitourinary: Reports: no symptoms. Musculoskeletal: Reports: see HPI, back pain, muscle pain, muscle stiffness. Skin: Reports: no symptoms. Neurological/Psychological: Reports: no symptoms. Hematologic/Endocrine: Reports: no symptoms. Immunologic/Allergic: Reports: no symptoms. All Other Systems: Reviewed and Negative (Paco Castrejon) Physical Exam Physical Exam General Appearance: well developed/nourished, no apparent distress, alert, awake Head: atraumatic, normal appearance Eyes: Bilateral: normal appearance, PERRL, EOMI. Ears, Nose, Throat: normal pharynx, normal ENT inspection, hearing grossly normal Neck: normal inspection, supple, full range of motion Respiratory: normal breath sounds, chest non-tender, no respiratory distress, lungs clear Cardiovascular: regular rate/rhythm, normal peripheral pulses Peripheral Pulses: 2+ radial (R), 2+ radial (L) Gastrointestinal: normal bowel sounds, soft, no organomegaly, tenderness ( EPIGASTRIC TENDERNES ) Back: normal inspection, normal range of motion, no vertebral tenderness Extremities: normal inspection, normal range of motion, no edema Neurologic/Psych: no motor/sensory deficits, awake, alert, oriented x 3, normal gait Skin: intact, normal color, warm/dry Lymphatic: no anterior cervical lorena Core Measures ACS in differential dx? No CVA/TIA Diagnosis: No Sepsis Present: No Sepsis Focused Exam Completed? No (Paco Castrejon) Progress Differential Diagnoses I considered the following diagnoses in my evaluation of the patient: [Gastritis , acute kidney injury, drug overdose, drug withdrawal, depression, electrolyte abnormality] Plan of Care: Orders Procedure Date/time Status GLYCOSYLATED HGB 12/26 0600 Active INIT HSP (30 MIN) 12/25 UNK Complete Current Medications Sig/Mo Start time Last Medication Dose Stop Time Status Admin Aripiprazole 5 MG DAILY 12/25 09 AC 12/25 (Abilify) 0803 Sertraline HCl 50 MG DAILY 12/25 0900 AC 12/25 (Zoloft) 0804 [place] Carbonate 300 MG 0800 12/25 0800 AC 12/25 ([place] Carbonate) 0803 Gabapentin 800 MG TID 12/24 2099 AC 12/25 (Neurontin) 1336 [place] Carbonate 450 MG AT BEDTIME 12/24 2099 AC 12/24 ([place] Carbonate) 2219 Albuterol Sulfate 2 PUF Q6P PRN 12/24 1400 AC (Ventolin) Hydroxyzine HCl 25 MG Q6P PRN 12/24 1400 AC (Atarax) Lorazepam 2 MG Q2P PRN 12/24 1400 AC (Ativan) Lorazepam 1 MG Q2P PRN 12/24 1400 AC (Ativan) Folic Acid 1 MG DAILY 12/24 1355 AC 12/25 (Folic Acid) 12/26 0901 0803 Multivitamins 1 TAB DAILY 12/24 1355 AC 12/25 (Theragran Vitamins) 0804 Thiamine HCl 100 MG DAILY 12/24 1355 AC 12/25 (Vitamin B1) 12/26 0901 0804 Acetaminophen 650 MG Q6P PRN 12/24 1345 AC 12/25 (Tylenol) 1616 Al Hydroxide/Mg 30 ML Q4-6 PRN PRN 12/24 1345 AC Hydroxide (Maalox Plus) Benztropine Mesylate 1 MG Q6P PRN 12/24 1345 AC (Cogentin 1 MG Tablet) Benztropine Mesylate 1 MG Q6P PRN 12/24 1345 AC (Cogentin) Haloperidol 5 MG Q6P PRN 12/24 1345 AC (Haldol) Haloperidol 5 MG Q6P PRN 12/24 1345 AC (Haldol) Lorazepam 2 MG Q6P PRN 12/24 1345 AC (Ativan) Magnesium Hydroxide 30 ML AT BEDTIME NEED.. 12/24 1345 AC (Milk Of Magnesia) Trazodone HCl 50 MG AT BEDTIME NEED.. 12/24 1345 AC (Desyrel) Budesonide/ 2 PUF BID 12/24 1344 AC 12/25 Formoterol Fumarate 0950 (Symbicort) Nicotine 21 MG DAILY 12/23 1729 AC 12/25 (Nicoderm) 0805 Laboratory Tests 12/25/17 0630: Estimated GFR > 60, BUN/Creatinine Ratio 18.8, TSH 0.526 Seen and evaluated. He overdosed on gabapentin and ibuprofen over the past couple days. He reports he has not taken any of his psychiatric medications for greater than 3 months. His lithium level is negative. He does have evidence of acute kidney injury. Fluids were ordered. Remaining blood work is unchanged. Acetaminophen level is negative. She is stable normal QTC. Spoke with Sing control who recommends supportive care with IV fluids and serial creatinines and electrolytes. A repeat was placed for 6 AM tomorrow morning. Patient will also see crisis. He'll be held over the emergency department for re-eval by crisis and also repeat blood work. Case discussed with Dr. Flowers he agrees. Signed out to Dr. Reina pending reevaluation by crisis and repeat blood work. Initial ED EKG: normal sinus rhythm, consider anteroseptal infarct Prior EKG: unchanged Hand-Off Endorsed To: Sav Reina MD Endorsed Time: 2300 Pending: consult, labs (Paco Castrejon) Differential Diagnoses I considered the following diagnoses in my evaluation of the patient: Hand-Off Endorsed To: Howard Fischer MD Endorsed Time: 0700 Pending: consult (Sav Reina MD) Comments: 12/24/2017 8:11:26 AM patient signed out to me by Dr. Reina at shift cell coverer. (Howard Fischer MD) Departure Departure Disposition: STILL A PATIENT Condition: Stable Referrals: Lamont Lozada (PCP/Family) Departure Forms: Customer Survey General Discharge Information (Paco Castrejon) PA/KENNEL SUPERVISOR Co-Sign Statement Statement: ED Attending supervision documentation- [] I saw and evaluated the patient. I have also reviewed all the pertinent lab results and diagnostic results. I agree with the findings and the plan of care as documented in the PA's/KENNEL SUPERVISOR's documentation. [x] I have reviewed the ED Record and agree with the PA's/KENNEL SUPERVISOR's documentation. [] Additions or exceptions (if any) to the PAs/KENNEL SUPERVISOR's note and plan are summarized below: [] (Sav Reina MD) Departure Clinical Impression Primary Impression: Bipolar 1 disorder, depressed Secondary Impressions: Acute kidney injury Deliberate medication overdose Qualifiers: Encounter type: initial encounter Qualified Code: T50.902A - Poisoning by unspecified drugs, medicaments and biological substances, intentional self-harm, initial encounter Suicide ideation (Howard Fischer MD) Critical Care Note Critical Care Note Critical Care Time: non-applicable (Paco Castrejon)
[2017-12-23 15:41] LABS: ABSOLUTE BASOPHIL COUNT 0.1 /CUMM (0.0-0.2); ABSOLUTE EOSINOPHIL COUNT 0.2 /CUMM (0.0-0.7); ABSOLUTE GRANULOCYTE CT 7.8 /CUMM (1.4-6.5); ABSOLUTE LYMPH COUNT 1.9 /CUMM (1.2-3.4); ABSOLUTE MONOCYTE COUNT 0.8 /CUMM (0.10-0.60); BASOPHIL % 0.8 % (0.0-2.0); EOSINOPHIL % 1.7 % (0-5); GRANULOCYTE % 72.8 % (42.2-75.2); HEMATOCRIT 46.8 % (42-52); MEAN CORPUSCULAR HGB 30.8 PG (27.0-31.0); MEAN CORPUSCULAR HGB CONC 34.2 G/DL (33.0-37.0); MEAN CORPUSCULAR VOLUME 89.9 FL (80.0-94.0); MEAN PLATELET VOLUME 7.9 FL (7.4-10.4); PLATELET COUNT 252 /CUMM (130-400); RBC DISTRIBUTION WIDTH 13.2 % (11.5-14.5); WHITE BLOOD CELL COUNT 10.7 /CUMM (4.8-10.8)
[2017-12-23 15:50] LABS: PT 11.4 SEC (9.4-12.5); PTT 31 SEC (25-37)
[2017-12-23 16:00] LABS: LITHIUM < 0.2 mmol/L (0.6-1.2)
--- NOTE | 2017-12-24 07:48 | ED PSYCH CRISIS CONSULTATION ---
See Addendum Crisis Consult Basic Assessment Date of Consult: 12/24/17 Responsible Person/Accompanied By: self Insurance Authorization: Insurance #1: Insurance name: [employer]AD BLACK Phone number: Policy number: [id number] Group number: Authorization number: ED Provider: Patient's ED Provider: Paco Castrejon Primary Care Physician: Patient's PCP: Lamont Lozada PCP's Current Psychiatrist: none current Chief Complaint: Psychiatric Related Complaint Patient's Quote: I'm a mess. Worse than I've ever been. Present Illness: Pt is a 57 yo male presenting to [facility] last evening with depression and SI. Pt reports attempt to overdose on ibuprofin and gabapentin yesterday. Pt has had 5 prior [facility] admissions since 2014 for depression, suicide attempt and polysubstance abuse. Pt was last admitted to [facility] in October 2017 for similiar concerns but didn't follow aftercare plan following discharge. Pt was scheduled for an intake at [facility] and failed to show. Pt was discharged from [facility] on Abilify, Springview, Zoloft and Gabapentin but has only continued taking Gabapentin. Pt reports crack cocaine use everyday for the past month and etoh every other day. Pt reports he is in financial debt to multiple neighbors and his friends and family have abandoned him due to his poor decisions. Pt reports feeling helpless, hopeless and worthless. Pt reports experiencing pain as a trigger for his SI. Pt reports his SI is worse than its ever been. Pt reports prior suicide attempts by overdosing. Pt also discussed feeling lonely and does better when he has people to talk to. Pt denies HI; AH; VH. Pt presents as depressed, tearful, lethargic and OX3. Case reviewed with Dr Ortiz with pt meeting criteria for inpatient psychiatric admission. Pt agrees with plan and has signed voluntary admission forms. CSSRS administered: Risk Factors: access to lethal means, chronic/serious med cond., high anxiety/distress, history of suicide atmpts, SA/MH hospitalized, substance abuse, isolate/no social support, poor impulse control, lack of outcome concern, lives alone, male, limited support. Protective Factors: None. Patient's Address: [address] [place] [address] [place] [address] Other Phone Number: Who Do You Live With? Patient/Self Family/Informants Interviewed: no family/collateral ID'd Allergies - Coded Allergies: NO KNOWN ALLERGIES (01/15/16) Current Medications - Scheduled Medications Aripiprazole (Abilify) 5 MG TABLET 5 MG PO 0800 mood stability #30 TAB Prescribed by Michelet Elizondo MD on 10/30/17 Budesonide/Formoterol Fumarate (Symbicort 160-4.5 Mcg Inhaler) 160 MCG-4.5 MCG/ ACTUATION HFA.AER.AD 2 PUF INH BID COPD #1 INHAL Prescribed by Michelet Elizondo MD on 10/30/17 Gabapentin 600 MG TABLET 2 TAB PO TID anxiety/nerve pain #180 TAB Prescribed by Michelet Elizondo MD on 10/30/17 Springview Carbonate 300 MG CAPSULE 300 MG PO 0800 mood #30 CAP Prescribed by Michelet Elizondo MD on 10/30/17 Springview Carbonate 150 MG CAPSULE 450 MG PO 2000 Mood #90 CAP Prescribed by Michelet Elizondo MD on 10/30/17 Sertraline HCl 50 MG TABLET 50 MG PO 0800 anxiety #30 TAB Prescribed by Michelet Elizondo MD on 10/30/17 Scheduled PRN Medications Albuterol Sulfate (Ventolin Hfa) 90 MCG HFA.AER.AD 2 PUF INH Q4 PRN SHORTNESS OF BREATH #1 INHAL Prescribed by Michelet Elizondo MD on 10/30/17 Laboratory Results: Laboratory Tests 12/24/17 0630: Anion Gap 9, Estimated GFR > 60, BUN/Creatinine Ratio 20.0, Glucose 95, Calcium 9.0 12/23/17 1538: Urine Opiates Screen < 100, Methadone Screen < 40, Barbiturate Screen < 60, Ur Phencyclidine Scrn < 6.00, Amphetamines Screen 230, U Benzodiazepines Scrn < 85, Urine Cocaine Screen > 1000 H, Urine Cannabis Screen < 5.00 12/23/17 1528: Anion Gap 15, Estimated GFR 35 L, BUN/Creatinine Ratio 15.5, Glucose 111 H, Calcium 10.2, Magnesium 2.1, Total Bilirubin 0.6, AST 23, ALT 24, Alkaline Phosphatase 91, Troponin I < 0.01, Total Protein 7.8, Albumin 4.6, Globulin 3.2, Albumin/Globulin Ratio 1.4, Lipase 225, Free T4 1.32, Total T3 1.05, TSH &T3 & Free T4 Intrp 0.136 L, PT 11.4, INR 1.05, APTT 31, CBC w Diff NO MAN DIFF REQ, RBC 5.20, MCV 89.9, MCH 30.8, MCHC 34.2, RDW 13.2, MPV 7.9, Gran % 72.8, Lymphocytes % 17.6 L, Monocytes % 7.1, Eosinophils % 1.7, Basophils % 0.8, Absolute Granulocytes 7.8 H, Absolute Lymphocytes 1.9, Absolute Monocytes 0.8 H, Absolute Eosinophils 0.2, Absolute Basophils 0.1, Salicylates < 1.0, Acetaminophen < 10.0 L, Springview < 0.2 L, Serum Alcohol < 10.0 Past History Past Medical History Neurological: NONE EENT: NONE Cardiovascular: hypertension Respiratory: COPD Gastrointestinal: NONE Hepatic: NONE Renal: NONE Musculoskeletal: degen joint disease Psychiatric: alcohol dependence, anxiety, bipolar disease, depression, schizophrenia, COCAINE ABUSE Endocrine: NONE Blood Disorders: NONE Cancer(s): NONE 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 Psychosocial History Strengths/Capabilities: Pt has housing; pt has hx of treatment and prior AA involvement. Physical Limitations (Interventions): Pain related to chronic back & nerve pain, degenerative disk disease Psychiatric Treatment History Psych Treatment Psychiatric Treatment Yes Inpatient Treatment Yes Outpatient Treatment Yes Location of Treatment [facility]; [facility] Reason for Treatment Bipolar/SI substances/cocaine Dates of Treatment most recent [facility] admission - Oct 2017 Response to Treatment pt didn't follow treatment recommendations after most recent inpatient discharge. Diagnosis by History: Psy Primary Dx: Bipolar disorder, ETOH Use DO, Cocaine Use DO Psy Secondary Dx: PTSD; History of methamphetamine use disorder Substance Use/Abuse History Drug Use/Abuse 1 Substances Used/Abused Yes Substance Used/Abused Crack Cocaine Last Used yesterday How often everyday For how long past month Drug Use/Abuse 2 Substances Used/Abused Yes Substance Used/Abused Alcohol Last Used 2 days ago How much used/taken 2 40oz beers How often every otherday Substance Abuse Treatment Substance Abuse Treatment Past Substance Abuse TX Yes Inpatient Treatment Yes Outpatient Treatment Yes Location of Treatment multiple detox and rehabs including [facility] and [facility] Reason for Treatment cocaine/etoh/benzo Response to Treatment pt has had difficulty maintaining sobriety Comments: pt reports recent daily crack cocaine use and and every other day etoh. Pt reports relapse soon after most recent CPS discharge. Current Mental Status Mental Status Orientation: Person, Place, Situation Affect: Depressed Speech: WNL Neuro-vegetative: Anhedonia, Appetite Decreased, Concentration Poor, Energy Decreased, Helpless, Loss of Interest, Sleep Disturbance Appearance Appearance- Dress/Hygiene: hospital scrubs; unshaven; appears older than stated age Behaviors Thought Process: WNL Thought Content: WNL Memory: WNL Insight: Poor SI/HI Risk Assessment Past Suicidal Ideation/Attempts Yes Current Suicidal Ideation/Att Yes Past Homicidal Ideation/Att: No Current Homicidal Ideation/Attempts No Degree of Intent: States Intent Danger To: Self Gravely Disabled: Poor Impulse Control, Poor Judgment Risk Factors: access to lethal means, chronic/serious med cond., high anxiety/ distress, history of suicide atmpts, SA/MH hospitalized, substance abuse, isolate/no social support, poor impulse control, lack of outcome concern, lives alone, male, limited support Lethality Ratin PTSD Checklist PTSD Done? patient declined ED Management Sitter: Yes Restraints: No DSM5/PS Stressors/Medical Prob Diagnosis' (DSM 5, Stressors, Medical): Unspecified Bipolar D/O , depressed F31.30 Cocaine Use d/o F 14.20 Alcohol Use D/O F 10.20 finacial housing secondary supports shoulder and abdomen pain Current GAF: 20 Comments: pt reports multiple psychosocial stressors. Pt admits to not following recommendation to engage with [facility] following recent CPS discharge and not continuing with medications. Departure Disposition Psych Medical Clearance Date: 12/24/17 Medically Cleared at: 0715 Time Started: 0715 Time Ended: 0800 Psychiatrist Consulted: Sav Ortiz MD Date Disposition Established: 12/24/17 Time Disposition Established: 1000 Plan for Disposition - Modality: Inpatient Psychiatry Facility: [facility] Rationale for Disposition: mood stabilization and medication assessment Type of IP Admission: Voluntary Referrals Lamont Lozada (PCP/Family)
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
[2017-12-24 19:08] VITALS: BP 138/78
[2017-12-24 20:04] VITALS: BP 124/74
[2017-12-24 20:09] VITALS: BP 124/74
[2017-12-25] VITALS (8 sets, daily range): BP systolic 109–138; BP diastolic 60–82
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
--- NOTE | 2017-12-25 11:59 | SOCIAL WORKER PROG NOTE PSYCH ---
Social Work Progress Note Progress Note Hernán was in bed late morning. Prompted him to get out of bed and meet. He was responsive. Feels badly about being here again. Feels guilty that things didn' t work out when he left [facility] in October. Said he relapsed on crack cocaine shortly after leaving the hospital and he has been using anywhere from 20.00- 100.00 or more of crack per day. He fired his VNS that was put in place when he left the hospital after about a week. He didn't want to follow directions for how his meds were prescribed. Talked about wanting to take more Gabepentin. Reports he also didn't want to be on some of his other medications. When asked why? He said "side effects." He didn't recall what side effect inparticular. He reported that he let a homeless roosevelt stay at this apartment and that he's been using drugs with this other roosevelt. His name is Santos. He said he is still at the apartment and has been trying to call him, but he isn't answering. Talked about one of his main triggers being loneliness. This is what brought him in last time and he is continuing to make poor decisions due to wanting others company. Reports significant depression today. Rating it a 10 (0-10, 10 being most severe). Less anxious, rating it a 5 today. Reports no SI today. Talked about how he is planning to break his current patterns. He never followed through with the IOP intake at [facility] that was set up for him at d/c last admission. Asked if he was interested in rehab? He said he was, but due to insurance he is limited to where he can go. He signed releases for [place] and [facility]. Preferred not to go back to [facility]. He also is interested in pursuing the [facility]. This was the program he was interested in last admission and then got frustrated with the real estate leasing manager and decided against it. He was talking to the Shipping Inspector Yumiko Maravilla in Crisis and he thinks he would like to try and pursue this option again. She apparently offered to help him since she knows the real estate leasing manager there. Hernán signed a release for [facility]. Yumiko is not here at the hospital today, but I was told by the stable helper that she did reach out to Luis at [facility] yesterday. I followed up today and left Luis a message. [phone].
--- NOTE | 2017-12-25 13:06 | CPS PROVIDER INIT ASMT PSYCH ---
Psychiatric Admission Salesperson Yard Goods's Note Reviewed: Yes Patient Seen and Examined: Yes (Seen with QU medical student.) Identifying Information: 57 yo SWM with hx bipolar d/o and substance abuse, admitted on 12/24/17 on a voluntary basis, referred by ER. Chief Complaint: SI, depressed. Reaction to Hospitalization: "Feel kind of bad, like I failed last admission." History of Present Illness Onset of Illness: 1 week after last [facility] discharge. Circumstances Leading to Admission: Resumed crack use, $40-100/day smoked, 1 week after last [facility] discharge. Became depressed and "overtook" gabapentin at twice the prescribed frequency and took ibuprofen 800 mg, #2-3 every 2hours for pain in shoulder. States he was taking these pills "like candy." "I look at it as I was trying to take my life. I just gave up." Took someone into his house off the street, out of loneliness. They used together. Was feeling very depressed, with no where left to go, so he came here for help. Has "always been depressed," but worse for the past couple of months, since last discharge. Patient's low income housing in [place] is in jeopardy for bringing someone into his home. Problem(s) Justifying Need for Admission: SI. Relapse with crack. Off most psychiatric medication except gabapentin. Other HPI: Sleep: kind of off, his whole life. Appetite: pretty good. Energy: alright right now. Case and treatment plan discussed in team meeting. Staff reports that the patient is denying SI. Feeling very sad. Going to groups. CIWAs are negative. Past Psychiatric History Past Diagnosis(es)- if any: Bipolar d/o. PTSD. Cocaine use d/o. Alcohol use d/o. Past Precipitating Factors- if any: Suicidal ideation. Suicide attempt by overdose. Substance use. - Include inpatient and outpatient treatment Treatment History: Did not go to [facility] at [facility]. Hx multiple prior admits to: x5, [facility] x4-5, [facility] x1 and twice in [place]. History of Suicide Attempts or Gestures Klonopin OD in . 12/18: intentional overdose of 7000 mg of gabapentin. Substance Abuse History: Tobacco >2 ppd. Alcohol: couple of beers, "not too often." MJ: none. Crack as above. No other drugs. Allergies: Coded Allergies: NO KNOWN ALLERGIES (01/15/16) Home Med List: Gabapentin 800 mg t.i.d. Ibuprofen 800 mg prn - Include any medical condition(s) that may - impact the patient's recovery/remission Past Medical History: Recent drop in eGFR (normalized). COPD. Right torn rotator cuff. Degenerative disk disease. Chronic back pain. Nerve pain in groin. 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 Substance Use: Father: alcohol. 2 brothers: alcohol. Suicides: None. Social History Living Situation: Took in a homeless person. Living in low-income housing in [place]. Significant Relationships (family/friends): Single. No children. Parents are . Has 2 surviving brothers and 2 sisters. 1 brother is . Education: HS graduate. Vocation/Occupation: On disability x 18 years for mental health. Legal: Past arrests for drugs and DWI. Healthly Behaviors Screening Tobacco Screening Tobacco Use from ED Docu: Current Daily Use Daily Tobacco Use Amount/Type: => 5 Cigarettes daily - If tobacco counseling indicated - the following topics are required. - #1 Recognizing dangerous situations. - #2 Coping Skills. - #3 Basic information about quitting. Status of Tobacco Cessation Counseling: #1, #2 AND #3 Completed Cessation Med Status Nicotine Patch Ordered Alcohol Screening - ETOH screen POS if BAL >=80 or Audit-C>= M4/F3 Audit-C Score from Diag Assess: 8 Blood Alcohol Level: Laboratory Tests 12/23 1528 Toxicology Serum Alcohol (<10 MG/DL) < 10.0 Alcohol Use Screening Results: Pos per Audit C &/or BAL - If ETOH counseling indicated - the following topics are required. - #1 Express concern about the patient's - drinking at unhealthy levels, include informing - of national norms for moderate drinking: - men <= 14 drinks/week, max 4 drinks/occasion - women <= 7 drinks/week, max 3 drinks/occasion - #2 Providing feedback, including linking alcohol to - negative physical effects (liver injury, hypertension) - negative emotional effects (relationship problems and - depression) - negative occupational consequences (reduced work - performance) - #3 Advising the patient to abstain from alcohol or - to drink below national norms for moderate drinking - (as listed above). Status of ETOH Use Counseling: #1, #2 AND #3 Completed. Metabolic Screening - Screen if on a Neuroleptic Medication - Metabolic screening should include: - Blood Pressure, BMI, Glucose or Hgb A1c, & a - Lipid profile from within the past 365 days. Metabolic Screening () Not Applicable, patient not on a neuroleptic. OR () Patient on a neuroleptic(s) . Enter below results for Hemoglobin A1C, and lipid panel if obtained during the last 365 days. BMI: 29.300 Blood Pressure: 138/60 Laboratory Results From [facility] (If applicable): [x] Lab Cholesterol 168 MG/DL 12/08/16 0630 Cholesterol/HDL Ratio 4 % 12/08/16 0630 HDL Cholesterol 43 mg/dL 12/08/16 0630 LDL Cholesterol, Calc 97 mg/dL 12/08/16 0630 Triglycerides 143 mg/dL 12/08/16 0630 Glycohemoglobin ordered for am 12/26/17. Exam and Plan Mental Status Examination Ambulation Status: Ambulating without difficulty. Appearance: WM, dressed in t-shirt and pants, unshaven face with moustache, sitting in chair in NAD. Attitude towards examiner: Calm, polite and cooperative. Psychomotor activity: There is no psychomotor agitation/retardation. Behavior: Unremarkable. Quality of speech: Normal in volume, rate and tone. Affect: Calm and blunted to depressed. Mood: Feels sad for ending up here and feeling no where in life. Sad 10/10. Anxiety 0/10. Denies feeling hopeless. Feels helpless sometimes. Feels worthless and guilty. Suicidal Ideation: Denies active and passive SI. Homicidal Ideation: Denies HI. Hallucinations: Denies AH and VH. Paranoid/Delusional Material: Denies PI and magical calloway. Difficulties with thought organization: None. Insight: Fair. Judgment: Poor. Orientation: Ox3. Cognition: Grossly intact. Memory Function: Grossly intact. Estimate of intellectual functioning: Average. Assets/Strengths Patient Identified Assets/Strengths: Intelligence. Communication skills. Impression/Plan Impression and Plan: The patient is here with depressed mood and SI in the context of substance relapse and medication/therapy non-adherence. - Include all active medical diagnosis that require tx DSM 5 Diagnosis(es): Bipolar d/o, depressed. PTSD by hx. Cocaine use d/o. Alcohol use d/o. R rotator cuff pain. Chronic obstructive pulmonary disease. Degenerative disk disease. Chronic back pain. Hx nerve pain in groin. - Initial Tx Plan for Active Psych & Medical Conditions Treatment Plan: Monitor on the unit for safety, substance withdrawal and mood disorder. Previous medications have been restarted. Patient advised to avoid all NSAIDs while on lithium. Follow lithium levels. Additional information is needed from collaterals, if identified. Patient wants to go to [facility] [place]. Anticipate likely discharge within 7 days. - Factors that would help patient function - in a less restrictive setting. Factors: No longer suicidal.
--- NOTE | 2017-12-25 13:41 | History & Physical ---
General Information and HPI History of Present Illness: This middle-aged male came into the hospital again because of drug abuse requesting detox. He reports that he was in the hospital a couple of months ago and was discharged on multiple psychiatric medication but only took for a few days and then stopped because he went back to drugs. He admits to using crack a lot as much as he can and has been using it for a long time. He also admits to abusing alcohol in the past. 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 His past history is positive for long-standing psychiatric illness and claims he has had bipolar disorder and possibly schizophrenia for many many years since she was a teenager. He has been hospitalized multiple times and claims he has is primary physician giving him gabapentin for pain in his back. There is no other medical medication that he takes. He is also not taking any psychiatric medication at this time. He admits to smoking about 2 packs a day of cigarettes because he rolled cigarettes himself and is presently disabled and not employed. He is single never and no children and claims his father had lung cancer and in his 60s where the mother lived in the 90s. He had 5 siblings and one because of drug overdose. Allergies/Medications Allergies: Coded Allergies: NO KNOWN ALLERGIES (01/15/16) Home Med list Albuterol Sulfate (Ventolin Hfa) 90 MCG HFA.AER.AD 2 PUF INH Q4 PRN SHORTNESS OF BREATH Aripiprazole (Abilify) 5 MG TABLET 5 MG PO 0800 mood stability Budesonide/Formoterol Fumarate (Symbicort 160-4.5 Mcg Inhaler) 160 MCG-4.5 MCG/ ACTUATION HFA.AER.AD 2 PUF INH BID COPD Gabapentin 600 MG TABLET 2 TAB PO TID anxiety/nerve pain [place] Carbonate 300 MG CAPSULE 300 MG PO 0800 mood [place] Carbonate 150 MG CAPSULE 450 MG PO 2000 Mood Sertraline HCl 50 MG TABLET 50 MG PO 0800 anxiety Past History Travel History Traveled to [place] past 21 day No Medical History Neurological: NONE EENT: NONE Cardiovascular: hypertension Respiratory: COPD Gastrointestinal: NONE Hepatic: NONE Renal: NONE Musculoskeletal: degen joint disease Psychiatric: alcohol dependence, anxiety, bipolar disease, depression, schizophrenia, COCAINE ABUSE Endocrine: NONE Blood Disorders: NONE Cancer(s): NONE 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 Past Family/Social History Family History Relations & Conditions if any FATHER ( - CHF, lung cancer). MOTHER ( - Alzheimer's). Maternal grandparents (Stroke). BROTHER (Prostate cancer). Psychosocial History Where do you live? Home Who Do You Live With? self Services at Home: None Primary Language: Pashto Functional Ability ADLs Independent: dressing, eating, toileting, bathing. Ambulation: independent IADLs Independent: transportation, medication admin. Review of Systems Review of Systems Constitutional: Denies: no symptoms, see HPI, fever, malaise. EENTM: Denies: no symptoms. Cardiovascular: Denies: no symptoms. Respiratory: Denies: no symptoms. GI: Denies: no symptoms. Genitourinary: Denies: no symptoms. Musculoskeletal: Reports: see HPI, joint pain (right shoulder pain for about ). Skin: Denies: no symptoms. Neurological/Psychological: Reports: see HPI, anxiety, depressed, emotional problems, pre-existing deficit. Exam & Diagnostic Data Last 24 Hrs of Vital Signs/I&O Vital Signs Date Time Temp Pulse Resp B/P B/P Pulse O2 O2 Flow FiO2 Mean Ox Delivery Rate 12/25 1211 63 138/60 12/25 1205 63 138/60 12/25 0755 96.7 61 132/75 12/25 0740 96.7 61 132/75 12/24 2008 97.6 65 124/74 12/24 2004 97.6 65 124/74 12/24 1908 97.4 70 138/78 12/24 1908 97.4 70 138/78 12/24 1824 98.7 57 18 124/60 98 Room Air 12/24 1614 97.7 52 18 121/56 97 Room Air Intake & Output 12/25 1600 12/25 0800 12/25 0000 Intake Total Output Total Balance Patient 198 lb Weight Physical Exam General Appearance Alert, Oriented X3, Cooperative, No Acute Distress Skin No Rashes, No Breakdown, No Significant Lesion HEENT Atraumatic, PERRLA, EOMI, Mucous Membr. moist/pink Neck Supple, No JVD, No thryomegaly, +2 Carotid Pulse wo Bruit Lymphatic Cervical nl Cardiovascular Regular Rate, Normal S1, Normal S2, No Murmurs, Gallops, Rubs Lungs Clear to Auscultation, Normal Air Movement Abdomen Soft, No Tenderness, No Hepatospenomegaly, No Masses Neurological Exam Findings: Normal Gait, Normal Speech, Strength at 5/5 X4 Ext, Normal Tone, Cranial Nerves 3-12 NL, Reflexes 2+ Cranial Nerves II through XII: Within normal limits and intact Extremities No Clubbing, No Cyanosis, No Edema, right shoulder painful on internal rotation as well as external rotation and supraspinatus testing due to rotator cuff injury. Assessment/Plan Assessment: This middle-aged male has a long-standing history of psychiatric illness is admitted again with bipolar disorder and drug abuse. He has not been taking his psychiatric medication. From medical standpoint he has right shoulder injury with rotator cuff tear and we will try him on some Motrin 600 mg 3 times a day after meals on a when necessary basis. In addition we can continue his gabapentin that he takes for back pain. If the Motrin is not effective than the orthopedic consult may be needed to evaluate since he may need arthroscopic surgery in future. Is no other medical problems sent admission blood work including a CBC electrolytes liver functions are all normal and his urine toxicology is positive for cocaine consistent with the history. As Ranked By This Provider Problem List: 1. Depression 2. Back pain 3. Tobacco abuse 4. Bipolar disorder current episode depressed 5. Polysubstance abuse 6. Mood disorder Miscellaneous Miscellaneous Documentation Attending Case Discussed With: Sav Ortiz MD Primary Care Physician: Lamont Lozada Patient sees these Specialists None Level of Patient Care: SHAMAR Mathis Attending MD Review Statement Attending Statement Attending MD Statement: examined this patient, reviewed EMR data (avail), discussed with nursing Attending Assessment/Plan: This middle-aged male is admitted for drug abuse and bipolar type disorder and some depression. From medical standpoint he has right shoulder pain due to rotator cuff injury. We will try symptomatic treatment with Motrin and he can continue his gabapentin for his back pain that he has been taking for a long time. His admission blood work and labs are normal and he does not need any other treatment. If Motrin is not helpful for the shoulder then he may need orthopedic evaluation and treatment.
[2017-12-26] VITALS (8 sets, daily range): BP systolic 118–137; BP diastolic 65–84
--- NOTE | 2017-12-26 09:07 | SOCIAL WORKER PROG NOTE PSYCH ---
Social Work Progress Note Progress Note Hernán reported not sleeping too well, due to being uncomfortable. Talked about looking into the [facility] today. Knows the number to make a call there today. I told him I left a voicemail with Luis from [facility]. Encouraged him to reach out to him directly as well. Shared information with him about [facility] in [place]. Gave him the contact information. Hernán is concerned about the man who was staying in his apartment. He said he is afraid he may be . These thoughts were also consuming him last night. He said he hasn't answered his phone. He is thinking of calling his engineering manager electronics today. He signed a release for his conservator of corporate real estate manager Mikie. He is open to me calling him. His contact number is [phone]. Reports feeling less depressed today and more hopeful. Later Hernán used the phone and left a message with Luis from [facility] and the coordinator at the [facility]. He also called [address] [place] [address] and left a message.
--- NOTE | 2017-12-26 13:59 | CP SOUTH PROGRESS NOTE PSYCH ---
Psych (Inpt) Progress Note Progress Note Include the following elements, when applicable: Involvement in the active treatment of the patient with behavioral observations of the patient and the patient's response to the treatment. Review of the ongoing treatment process in the context of the treatment plan. Indication of how multi-disciplinary staff members are carrying out the treatment plan. Plans for future interventions and recommendations for revision of the treatment plan. Liaison with other physicians/providers. Progress Note: Case and treatment plan discussed in team meeting. Staff reports that the patient is denying suicidal ideation. Still appearing very anxious. Had poor sleep but okay. Not scoring on CIWA. Patient seen at 10:30 AM. He was in focus group prior to meeting with me in office. Affect is calm and euthymic. Reports he had difficulty falling asleep and staying asleep. He estimates he got 3-4 hours of sleep last night. Willing to try trazodone prn tonight. Reports he napped this morning after first group of the day. Plans to call some sober houses and 1 rehab today. Reports mood is pretty good. Rates sad mood 0/10. Rates anxiety maybe about 3/10. Denies feeling hopeless, helpless or worthless. Feels guilty for having brought a couple of guys into his home. Reports he cannot get a hold of one of them, and he is afraid that individual could be . Denies active and passive suicidal ideation. Denies homicidal ideation. Denies auditory and visual hallucinations and paranoid ideation. Reports appetite is pretty good. Energy is better now after napping. I observed some involuntary facial movements. This could relate to tardive dyskinesia from Abilify which I informed that patient can be irreversible, but the patient reports a history of Tourette's disorder with vocal tics. I informed patient of elevated hemoglobin A1c of 5.9 and that he should try to cut down on sugar and carbohydrate intake. A lithium level is scheduled for 12/28/17. IMPRESSION: Slow progress. Continue present treatment plan. We are looking into placing the patient at a sober house.
[2017-12-27] VITALS (8 sets, daily range): BP systolic 128–137; BP diastolic 68–86
--- NOTE | 2017-12-27 08:30 | SOCIAL WORKER PROG NOTE PSYCH ---
Social Work Progress Note Progress Note Called [facility] and left a message with Sandip May. Hernán slept well. Reported feeling okay, despite some anxiety about not being able to connect with programs he has been calling. Made several calls this morning in my presence. He was able to connect with someone from the [address] [place] [address] in [place]. This person explained the program and expenses. After Hernán got off the phone he said that the cost to go their initially was too high, as they wanted $750 to move in up front. He also didn't seem pleased with the location. He called his property management intern to see if all was okay at his apartment, but she wasn't available. The individual that he spoke with seemed to assure him that they were not aware of any problems and it was okay to return to his apartment. He seemed reassured and said if he doesn't have any place else to go, he would return home. Discussed where he would go for clinical care if he were to return home? He suggested [facility]. He says that he has been there in the past. Reports feeling groggy from his medication. Asked if he would remain on his meds? He said yes, because they do help him. Called and left a voicemail with [facility] [phone]. Later spoke with Linda at the program after Hernán also spoke with them. They will give him an intake on Sunday 12/31 at 3:45pm. They can provide dual IOP, but they do not have a prescriber. She gave me some names of people to try to connect him with.
--- NOTE | 2017-12-27 10:52 | SOCIAL WORKER PROG NOTE PSYCH ---
Social Work Progress Note Progress Note MAURY MARTINEZ [id number] 1960 MAURY MARTINEZ [id number] Pended Authorization # Client Authorization # Type of Request [id number] CONCURRENT Date of Admission/ Start of Services Requested From Submission Date 12/24/2017 12/27/2017 12/27/2017
--- NOTE | 2017-12-27 14:30 | CP SOUTH PROGRESS NOTE PSYCH ---
Psych (Inpt) Progress Note Progress Note Include the following elements, when applicable: Involvement in the active treatment of the patient with behavioral observations of the patient and the patient's response to the treatment. Review of the ongoing treatment process in the context of the treatment plan. Indication of how multi-disciplinary staff members are carrying out the treatment plan. Plans for future interventions and recommendations for revision of the treatment plan. Liaison with other physicians/providers. Progress Note: Case and treatment plan discussed in team meeting. Staff reports that the patient is denying suicidal ideation. Reportedly doing pretty well. Sleeping well. Anticipating discharge tomorrow. Patient seen with medical student at 10:10 AM. Patient is dressed in blue paper scrubs. His clothes are in the wash. Feels a little tired but states he is okay. Appears awake and alert. Reports he is sleeping and eating better. Enjoys groups and talking to peers here. Affect is calm and euthymic. Reports mood is good. Rates sad mood and anxiety both 0/10. Denies feeling hopeless, helpless, worthless or guilty. Denies active and passive suicidal ideation. Denies homicidal ideation. Denies auditory and visual hallucinations and paranoid ideation. Reports sleep is improved. Appetite is good. Energy is a little bit low, stating he is still adjusting to medications. States "I'm functioning." IMPRESSION: Slow progress. Continue present treatment plan. Patient is planning to return to his home and go to [facility] for follow-up.
[2017-12-27] MEDS ORDERED: LITHIUM CARBON300 M4 PO (16:57)
[2017-12-27] MEDS ORDERED: GABAPENTIN300 M2 PO (16:57)
[2017-12-27] MEDS ORDERED: SERTRALINE HCL50 MG PO (16:57)
[2017-12-27] MEDS ORDERED: NICOTINE PATCH1 EAC3 TOP (16:57)
[2017-12-27] MEDS ORDERED: LITHIUM CARBON150 M1 PO (16:57)
[2017-12-27] MEDS ORDERED: HYDROXYZINE HCL25 M2 PO (16:57)
[2017-12-27] MEDS ORDERED: ABILIFY5 M1 PO (16:57)
--- NOTE | 2017-12-27 17:03 | Patient Discharge Instructions ---
Psych Discharge Inst General Discharge Information Reason for Admission: Resumed crack use, $40-100/day smoked, 1 week after last [facility] discharge. Became depressed and "overtook" gabapentin at twice the prescribed frequency and took ibuprofen 800 mg, #2-3 every 2hours for pain in shoulder. States he was taking these pills "like candy." "I look at it as I was trying to take my life. I just gave up." Took someone into his house off the street, out of loneliness. They used together. Was feeling very depressed, with no where left to go, so he came here for help. Has "always been depressed," but worse for the past couple of months, since last discharge. Patient's low income housing in [place] is in jeopardy for bringing someone into his home. Psy Discharge Primary Diag+ Bipolar d/o, depressed Psy Discharge Secondary Diag+ PTSD by hx Cocaine use disorder Alcohol use disorder R rotator cuff pain COPD Degenerative disk disease Chronic back pain Hx nerve pain in groin Hyperglycemia Summary Tests/Major Procedures Lab ALT 24 U/L 12/23/17 1528 AST 23 U/L 12/23/17 1528 BUN 31 mg/dL H 12/23/17 1528 BUN 22 mg/dL H 12/24/17 0630 BUN 15 mg/dL 12/25/17 0630 Calcium 9.0 mg/dL 12/24/17 0630 Carbon Dioxide 21 mmol/L L 12/24/17 0630 Chloride 114 mmol/L H 12/24/17 0630 Creatinine 2.0 mg/dL H 12/23/17 1528 Creatinine 1.1 mg/dL 12/24/17 0630 Creatinine 0.8 mg/dL 12/25/17 0630 Estimated GFR 35 ml/min L 12/23/17 1528 Estimated GFR > 60 ml/min 12/24/17 0630 Estimated GFR > 60 ml/min 12/25/17 0630 Free T4 1.32 ng/dL 12/23/17 1528 Glucose 95 mg/dL 12/24/17 0630 Hemoglobin A1c 5.9 % H 12/26/17 0650 Lipase 225 U/L 12/23/17 1528 Magnesium 2.1 mg/dL 12/23/17 1528 Potassium 4.6 mmol/L 12/24/17 0630 Sodium 144 mmol/L 12/24/17 0630 TSH 0.526 uIU/mL 12/25/17 0630 TSH &T3 &Free T4 Intrp 0.136 uIU/mL L 12/23/17 1528 Total T3 1.05 ng/mL 12/23/17 1528 APTT 31 SEC 12/23/17 1528 INR 1.05 12/23/17 1528 PT 11.4 SEC 12/23/17 1528 Absolute Granulocytes 7.8 /CUMM H 12/23/17 1528 Absolute Monocytes 0.8 /CUMM H 12/23/17 1528 Hct 46.8 % 12/23/17 1528 Hgb 16.0 G/DL 12/23/17 1528 Lymphocytes % 17.6 % L 12/23/17 1528 Plt Count 252 /CUMM 12/23/17 1528 WBC 10.7 /CUMM 12/23/17 1528 Acetaminophen < 10.0 ug/mL L 12/23/17 1528 [place] < 0.2 mmol/L L 12/23/17 1528 Serum Alcohol < 10.0 MG/DL 12/23/17 1528 Urine Cocaine Screen > 1000 NG/ML H 12/23/17 1538 Lab Cholesterol 138 MG/DL 12/25/17 0630 Cholesterol/HDL Ratio 4 % 12/25/17 0630 HDL Cholesterol 32 mg/dL L 12/25/17 0630 LDL Cholesterol, Calc 68 mg/dL 12/25/17 0630 Triglycerides 193 mg/dL H 12/25/17 0630 Lab [place] < 0.2 mmol/L L 12/23/17 1528 [place] 0.6 mmol/L 12/28/17 0634 EKG from 12/23/17 showed sinus rhythm, consider anteroseptal infarct, significant EKG contour changes. Abnormal EKG. QT 348. QTc 379. Studies Pending at [place]: None. Patient Instructions Contact Information Your Psychiatrist on [facility] was Angel OLSON,Sav * If you are experiencing an emergency related to this hospitalization, please call [phone] to contact the treating psychiatrist or the psychiatrist-on- call. * To Request a copy of your medical records, please contact the Medical Records Department at [phone]. * To request results of studies pending at the time of discharge, please call [phone]. * Continue your Medications until directed to stop by your Healthcare provider. General Medication Information Please continue to take your new medications and your continued home medications , unless otherwise indicated on your discharge medication list, or unless directed by your MD or QUALITY CONTROL COORDINATOR to stop them. Special Instructions Diet Regular (Reduce sugar/starch intake.) Activity Normal Other Inst/Recommendations Stay away from drugs&alcohol. See PCP about abnormal labs/ekg - Tobacco Use Treatment Offered Post DC Medications Offered: Script Given-See Med List Post DC Tobacco Treatment Plan: [facility] Program Appt Date: 01/02/18 Program Appt Time: 1600 - EtOH/Drug Use D/O Treatment Offered Post DC Medications Offered: Med Not Indicated for D/O Post DC EtOH/SubAbuse TX Plan: Other SubAbuse/Dual Pgm ([facility]) Program Appt Date: 12/31/17 Program Appt Time: 1545 (Actual time TBA) Metabolic Screening () Not Applicable, patient not on a neuroleptic. OR () Patient on a neuroleptic(s) . Enter below results for Hemoglobin A1C, and lipid panel if obtained during the last 365 days. BMI: 29.300 Blood Pressure: 137/68 Laboratory Results From [facility] (If applicable): [x] Lab Hemoglobin A1c 5.9 % H 12/26/17 0650 Lab Cholesterol 138 MG/DL 12/25/17 0630 Cholesterol/HDL Ratio 4 % 12/25/17 0630 HDL Cholesterol 32 mg/dL L 12/25/17 0630 LDL Cholesterol, Calc 68 mg/dL 12/25/17 0630 Triglycerides 193 mg/dL H 12/25/17 0630 Advance Directives Does the Patient have Medical Advance Directives No/Per pt req info given Does Pt have Psychiatric Advance Directives? No/Per pt req info provid Does Patient have a Designated Surrogate Decision Maker: No Information About Psychiatric Advance Directives Provided? Yes Discharge Plan Post Hospital Treatment Plan: Returning to home. Follow up with [facility].
[2017-12-28 07:42] VITALS: BP 139/76
[2017-12-28 07:45] VITALS: BP 139/76
--- NOTE | 2017-12-28 09:10 | SOCIAL WORKER PROG NOTE PSYCH ---
Social Work Progress Note Progress Note Met with Hernán to review discharge plans for today. Explained that he will need a prescriber, since they don't offer that service at [facility]. He said he was informed of that as well when he spoke with them yesterday. He was open to me calling some of the suggested folks the center mentioned. Talked about his follow up appt. on Sunday and how he needs to call to confirm in the morning. He said he may get a phone this weekend, if not he will use the [employer] pay phone. Asked what he planned to do about the possible homeless person who may still be residing in his apartment? He said he is hoping he left , but if not he will need to tell his sales and marketing manager. He said he's been thinking about it all week and knows he just needs to deal with it. Encouraged him to make sure he follows through with treatment when he leaves and not burn further bridges. Overall mood is improved. No SI. Called [facility]ren[facility] Delac[facility] to see about taking Hernán as a new patient. Mr. Delacruz was not open to taking him on stating he doesn't see people on [place]. Talked to Hernán about going to [facility] instead for med management. He was in agreeement. Appt.'s were made for intake on 01/03 at 8:30am with Mikayla and Dr. Lu 01/07 at 8:30am. Hernán called him friend Joanie to pick him up at 11:30am to bring him home today.
--- NOTE | 2017-12-28 12:10 | SOCIAL WORKER PROG NOTE PSYCH ---
See Addendum Social Work Progress Note Faxed Referral(s) Referred To: [facility] Transition of Care Documents sent: Health Summary Faxed to: [facility] Fax #: [phone] Faxed by: Debo Hilario Date faxed: 12/28/17 Time Faxed: [phone]
--- NOTE | 2017-12-28 14:40 | CP SOUTH PROGRESS NOTE PSYCH ---
Psych (Inpt) Progress Note Progress Note Include the following elements, when applicable: Involvement in the active treatment of the patient with behavioral observations of the patient and the patient's response to the treatment. Review of the ongoing treatment process in the context of the treatment plan. Indication of how multi-disciplinary staff members are carrying out the treatment plan. Plans for future interventions and recommendations for revision of the treatment plan. Liaison with other physicians/providers. Progress Note: Case and treatment plan discussed in team meeting. Staff reports that the patient says he is ready to go. Patient seen at 10:10 AM with medical student. Patient feels okay. Has no complaints. Affect is calm and euthymic. Reports mood is pretty good. Rates sad mood 0/10 and anxiety about 5/10. Denies feeling hopeless, helpless, worthless or guilty. Denies active and passive suicidal ideation. Denies homicidal ideation. Denies auditory and visual hallucinations and paranoid ideation. Reports he slept pretty well last night. Describes appetite and energy as good. Tolerating medications well, without complaint. Feels ready and safe for discharge. IMPRESSION: Condition improved. Okay for discharge today to home. Patient will have follow -up at [facility] and at [facility] for medication management.
--- NOTE | 2017-12-28 14:50 | DISCHARGE SUMMARY REPORT-PSYCH ---
Visit Information Visit Dates/Diagnosis' Admission Date: 12/24/17 Discharge Date: 12/28/17 Reason for Admission: Resumed crack use, $40-100/day smoked, 1 week after last [facility] discharge. Became depressed and "overtook" gabapentin at twice the prescribed frequency and took ibuprofen 800 mg, #2-3 every 2hours for pain in shoulder. States he was taking these pills "like candy." "I look at it as I was trying to take my life. I just gave up." Took someone into his house off the street, out of loneliness. They used together. Was feeling very depressed, with no where left to go, so he came here for help. Has "always been depressed," but worse for the past couple of months, since last discharge. Patient's low income housing in [place] is in jeopardy for bringing someone into his home. Psy Discharge Primary Diag: Bipolar d/o, depressed Psy Discharge Secondary Diag: PTSD by hx Cocaine use disorder Alcohol use disorder R rotator cuff pain COPD Degenerative disk disease Chronic back pain Hx nerve pain in groin Hyperglycemia Hospital Course Significant Lab Findings: Lab ALT 24 U/L 12/23/17 1528 AST 23 U/L 12/23/17 1528 BUN 31 mg/dL H 12/23/17 1528 BUN 22 mg/dL H 12/24/17 0630 BUN 15 mg/dL 12/25/17 0630 Calcium 9.0 mg/dL 12/24/17 0630 Carbon Dioxide 21 mmol/L L 12/24/17 0630 Chloride 114 mmol/L H 12/24/17 0630 Creatinine 2.0 mg/dL H 12/23/17 1528 Creatinine 1.1 mg/dL 12/24/17 0630 Creatinine 0.8 mg/dL 12/25/17 0630 Estimated GFR 35 ml/min L 12/23/17 1528 Estimated GFR > 60 ml/min 12/24/17 0630 Estimated GFR > 60 ml/min 12/25/17 0630 Free T4 1.32 ng/dL 12/23/17 1528 Glucose 95 mg/dL 12/24/17 0630 Hemoglobin A1c 5.9 % H 12/26/17 0650 Lipase 225 U/L 12/23/17 1528 Magnesium 2.1 mg/dL 12/23/17 1528 Potassium 4.6 mmol/L 12/24/17 0630 Sodium 144 mmol/L 12/24/17 0630 TSH 0.526 uIU/mL 12/25/17 0630 TSH &T3 &Free T4 Intrp 0.136 uIU/mL L 12/23/17 1528 Total T3 1.05 ng/mL 12/23/17 1528 APTT 31 SEC 12/23/17 1528 INR 1.05 12/23/17 1528 PT 11.4 SEC 12/23/17 1528 Absolute Granulocytes 7.8 /CUMM H 12/23/17 1528 Absolute Monocytes 0.8 /CUMM H 12/23/17 1528 Hct 46.8 % 12/23/17 1528 Hgb 16.0 G/DL 12/23/17 1528 Lymphocytes % 17.6 % L 12/23/17 1528 Plt Count 252 /CUMM 12/23/17 1528 WBC 10.7 /CUMM 12/23/17 1528 Acetaminophen < 10.0 ug/mL L 12/23/17 1528 [place] < 0.2 mmol/L L 12/23/17 1528 Serum Alcohol < 10.0 MG/DL 12/23/17 1528 Urine Cocaine Screen > 1000 NG/ML H 12/23/17 1538 Lab Cholesterol 138 MG/DL 12/25/17 0630 Cholesterol/HDL Ratio 4 % 12/25/17 0630 HDL Cholesterol 32 mg/dL L 12/25/17 0630 LDL Cholesterol, Calc 68 mg/dL 12/25/17 0630 Triglycerides 193 mg/dL H 12/25/17 0630 Lab [place] < 0.2 mmol/L L 12/23/17 1528 [place] 0.6 mmol/L 12/28/17 0634 EKG from 12/23/17 showed sinus rhythm, consider anteroseptal infarct, significant EKG contour changes. Abnormal EKG. QT 348. QTc 379. Course Complications: None. Consultations: The patient was seen for admission H&P by Dr. Henry Humphrey, who noted: "Assessment: This middle-aged male has a long-standing history of psychiatric illness is admitted again with bipolar disorder and drug abuse. He has not been taking his psychiatric medication. From medical standpoint he has right shoulder injury with rotator cuff tear and we will try him on some Motrin 600 mg 3 times a day after meals on a when necessary basis. In addition we can continue his gabapentin that he takes for back pain. If the Motrin is not effective than the orthopedic consult may be needed to evaluate since he may need arthroscopic surgery in future. Is no other medical problems sent admission blood work including a CBC electrolytes liver functions are all normal and his urine toxicology is positive for cocaine consistent with the history." Dr. Ortiz discontinued ibuprofen because 1) the patient was abusing it at home and sustained temporary renal failure as a result 2) the patient is back on lithium Allergies: Coded Allergies: NO KNOWN ALLERGIES (01/15/16) Hospital Course/TX Response: The patient was monitored on the unit for safety, substance withdrawal and mood disorder. He participated in multimodal treatments on the unit. Prior home medications were restarted. Patient demonstrated improvement in mood and affect. Suicidal ideation has remitted. Progress note from date of discharge, 12/28/17: Case and treatment plan discussed in team meeting. Staff reports that the patient says he is ready to go. Patient seen at 10:10 AM with medical student. Patient feels okay. Has no complaints. Affect is calm and euthymic. Reports mood is pretty good. Rates sad mood 0/10 and anxiety about 5/10. Denies feeling hopeless, helpless, worthless or guilty. Denies active and passive suicidal ideation. Denies homicidal ideation. Denies auditory and visual hallucinations and paranoid ideation. Reports he slept pretty well last night. Describes appetite and energy as good. Tolerating medications well, without complaint. Feels ready and safe for discharge. IMPRESSION: Condition improved. Okay for discharge today to home. Patient will have follow -up at [facility] and at [facility]'s OPS for medication management. Discharge HBIPS - Tobacco Use Treatment Offered Post DC Medications Offered: Script Given-See Med List Post DC Tobacco Treatment Plan: [facility] Appt Date: 01/02/18 Program Appt Time: 1600 - EtOH/Drug Use D/O Treatment Offered Post DC Medications Offered: Med Not Indicated for D/O Post DC EtOH/SubAbuse [place] Plan: Other SubAbuse/Dual Pgm ([facility]) Program Appt Date: 12/31/17 Program Appt Time: 1545 Metabolic Screening - Screen if on a Neuroleptic Medication - Metabolic screening should include: - Blood Pressure, BMI, Glucose or Hgb A1c, & a - Lipid profile from within the past 365 days. Metabolic Screening () Not Applicable, patient not on a neuroleptic. OR () Patient on a neuroleptic(s) . Enter below results for Hemoglobin A1C, and lipid panel if obtained during the last 365 days. BMI: 29.300 Blood Pressure: 139/76 Laboratory Results From [facility] E[facility] (If applicable): [x] Lab Cholesterol 138 MG/DL 12/25/17 0630 Cholesterol/HDL Ratio 4 % 12/25/17 0630 HDL Cholesterol 32 mg/dL L 12/25/17 0630 Hemoglobin A1c 5.9 % H 12/26/17 0650 LDL Cholesterol, Calc 68 mg/dL 12/25/17 0630 Triglycerides 193 mg/dL H 12/25/17 0630 Discharge Instructions General Discharge Information Multiple Neuroleptics: ([x]) Not Applicable OR Document below three failed attempts at monotherapy, or a plan to taper to monotherapy, or augmentation of Clozapine. () Discharge Diet Regular (Reduce sugar/starch intake.) Discharge Activity Normal DC Disposition: Returning to home. Referrals Ordered Referrals Provider Referral 01/03/18 For Groups: Outpatient Psychiatry [facility] Intake 01/03/18 8:30am [address] [place] [address] Provider Referral 01/07/18 For Groups: Outpatient Psychiatry Appt. with Dr. Lu @ [facility] 01/07/18 8:30am [address] [place] [address] Provider Referral 12/31/17 For Groups: [facility] for mental health and substance use treatment Intake 12/31/17 3:45pm [address] [place], [place] [phone] Call [facility] Sunday 12/31 between 9-12pm to confirm appt. Prescriptions Stop taking the following medications: Gabapentin (Gabapentin) 600 MG TABLET ORAL THREE TIMES DAILY Qty = 180 Continue taking these medications: Albuterol Sulfate (Ventolin Hfa) 90 MCG HFA.AER.AD 2 Puff Inhale through mouth Every 4 hours as needed for SHORTNESS OF BREATH Qty = 1 Comments: Last Taken:NOT USED IN THE HOSPITAL Time: Budesonide/Formoterol Fumarate (Symbicort 160-4.5 Mcg Inhaler) 160 MCG-4.5 MCG/ ACTUATION HFA.AER.AD 2 Puff Inhale through mouth TWICE DAILY Qty = 1 Comments: Last Taken:12/28/17 Time:0830 Start taking the following new medications: Nicotine (Nicotine Patch) 21 MG/24 HOUR PATCH.TD24 1 Patch On the skin DAILY Qty = 14 No Refills Comments: Last Taken:12/28/17 Time:08 Gabapentin (Gabapentin) 300 MG CAPSULE 2 Capsule ORAL 4 TIMES A DAY Qty = 112 No Refills Comments: Last Taken:12/28/17 Time:08 Hydroxyzine Hydrochloride (Atarax) 25 MG TAB 25 Milligram ORAL EVERY SIX HOURS NEEDED as needed for ANXIETY/AGITATION/ INSOMNIA Qty = 28 No Refills Comments: Last Taken:12/26/17 Time:1600 The following medications have been changed: Old: Aripiprazole (Abilify) 5 MG TABLET 5 Milligram ORAL DAILY @8 AM Qty = 30 New: Aripiprazole (Abilify) 5 MG TABLET 1 Tablet ORAL DAILY @8 AM Qty = 14 Comments: Last Taken:12/28/17 Time:0830 Old: [place] Carbonate ([place] Carbonate) 300 MG CAPSULE 300 Milligram ORAL DAILY @8 AM Qty = 30 New: [place] Carbonate ([place] Carbonate) 300 MG CAPSULE 1 Capsule ORAL DAILY @8 AM Qty = 14 Comments: Last Taken:12/28/17 Time:0830 Old: [place] Carbonate ([place] Carbonate) 150 MG CAPSULE 450 Milligram ORAL 2000 Qty = 90 New: [place] Carbonate ([place] Carbonate) 150 MG CAPSULE 3 Capsule ORAL 1999 Qty = 42 Comments: Last Taken:12/27/17 Time:2129 Old: Sertraline HCl (Sertraline HCl) 50 MG TABLET 50 Milligram ORAL DAILY @8 AM Qty = 30 New: Sertraline HCl (Sertraline HCl) 50 MG TABLET 50 Milligram ORAL DAILY @8 AM Qty = 14 Comments: Last Taken:12/28/17 Time:0830 Other Inst/Recommendations Stay away from drugs&alcohol. See PCP about abnormal labs/ekg Studies Pending at Discharge None. Copies To: [facility]; Outpatient Psychiatry
--- NOTE | 2017-12-31 19:10 | SOCIAL WORKER PROG NOTE PSYCH ---
Social Work Progress Note Progress Note Determination Status: DISCHARGE COMPLETED Thank you. You have completed your discharge for this episode of care. Member Name Member ID Member Subscriber Name Subscriber ID MAURY MARTINEZ [id number] MAURY Tuttle JUAN [id number] Related Authorization # Related Client Authorization # Discharge # Discharge Date [id number] 12/28/2017 Level of Service Type of Service Level Of Care Type of Care IP - INPATIENT/HLOC P - MENTAL HEALTH I - INPATIENT CIP - INPATIENT HOSPITAL - INPATIENT HOSPITAL Provider Name & Address Provider ID Provider Alternate ID NORMAN CASTREJONO [id number] [address] [place] [phone]
== END 2017-12-28 11:41 | DRG 753 ==
LOC: ERH 13:53 → ERHI 12-24 11:10 → CP SOUTH 12-24 11:10 → ENTRNSPT 12-24 18:25 → EDTRNSPT 12-24 18:34 → EDTRNSPTSTS 12-24 18:34 → CP SOUTH 12-24 18:38 → CMPTRNSPT 12-24 18:42 → ENRESERV 12-24 23:59 → CP SOUTH 12-25 16:59
PROVIDERS: Physician Assistant; Psychiatry & Neurology Psychiatry
DX: F31.9 Bipolar disorder, unspecified (principal); F14.90 Cocaine use, unspecified, uncomplicated; Z72.89 Other problems related to lifestyle; M25.511 Pain in right shoulder; J44.9 Chronic obstructive pulmonary disease, unspecified; G89.29 Other chronic pain; R73.9 Hyperglycemia, unspecified; F43.10 Post-traumatic stress disorder, unspecified
CPT/HCPCS: 36415; 80307; 93005; 93010; 96361; 96374; 96375; G0480; J0131; J0515; J1630; J3490